=== PATIENT | female | born 1995 | race Caucasian/White ===

== ENCOUNTER 2018-02-19 21:32 | Emergency (ER) | payer SELFPAY ==
[~2018-02-19] VITALS: Ht 154.9 cm; Wt 81.6 kg
--- OUTSIDE RECORDS SUMMARY | 2018-02-19 21:38 | XMS REPORT ---
Author Author PARAG FLYNN Organization [facility] Address [address] [place] [address] Care Team Providers Care Civil Preparedness Coordinator Name Role Phone PARAG FLYNN Unavailable PROBLEMS Type Condition ICD9-CM Code [id number] Code Onset Dates Condition Status SNOMED Code Problem Hyperinsulinemia E16.1 Active 65432696 Problem Family history of diabetes mellitus Z83.3 Active 849002024 Problem Acquired hypothyroidism E03.9 Active 277080285 Problem Encounter to establish care Z76.89 Active 888689737 Problem Seasonal allergic rhinitis due to pollen J30.1 Active 97373554 Problem Obesity (BMI 30.0-34.9) E66.9 Active 729023240984346 Problem Amenorrhea N91.2 Active 52800178 ALLERGIES No Information SOCIAL HISTORY Never Assessed PLAN OF CARE VITAL SIGNS MEDICATIONS Medication Instructions Dosage Frequency Start Date End Date Duration Status Metformin HCl 850 MG Orally Once a day with evening meal 1 tablet with a meal Nov, 30 day(s) Active Levothyroxine Sodium 100 MCG Orally Once a day 1 tablet on an empty stomach in the morning 24h Active Spironolactone 50 mg Orally Once a day in the morning 1 tablet Nov, Active RESULTS No Results PROCEDURES No Known procedures IMMUNIZATIONS No Known Immunizations MEDICAL (GENERAL) HISTORY Type Description Date Medical History Hypothyroidism Surgical History cholecystectomy 08/2016 Surgical History Left eye surgery as Surgical History tonsillectomy Hospitalization History Surgery(s) only
--- OUTSIDE RECORDS SUMMARY | 2018-02-19 21:38 | XMS REPORT ---
Author Author PARAG FLYNN Organization [facility] Address [address] [place] [address] Care Team Providers Care Data Sciences Director Name Role Phone PARAG FLYNN Unavailable PROBLEMS Type Condition ICD9-CM Code [id number] Code Onset Dates Condition Status SNOMED Code Problem Hyperinsulinemia E16.1 Active 49501198 Problem Family history of diabetes mellitus Z83.3 Active 383293758 Problem Acquired hypothyroidism E03.9 Active 225275441 Problem Encounter to establish care Z76.89 Active 145957264 Problem Seasonal allergic rhinitis due to pollen J30.1 Active 44990369 Problem Obesity (BMI 30.0-34.9) E66.9 Active 258111236085681 Problem Amenorrhea N91.2 Active 40300405 ALLERGIES No Known Allergies SOCIAL HISTORY Never Assessed PLAN OF CARE VITAL SIGNS MEDICATIONS Medication Instructions Dosage Frequency Start Date End Date Duration Status Levothyroxine Sodium 100 MCG Orally Once a day 1 tablet on an empty stomach in the morning 24h Active Cetirizine HCl 10 mg Orally Once a day 1 tablet 24h Sep, Dec, 90 days Active RESULTS No Results PROCEDURES No Known procedures IMMUNIZATIONS No Known Immunizations MEDICAL (GENERAL) HISTORY Type Description Date Medical History Hypothyroidism Surgical History cholecystectomy 08/2016 Surgical History Left eye surgery as infant Surgical History tonsillectomy Hospitalization History Surgery(s) only
--- OUTSIDE RECORDS SUMMARY | 2018-02-19 21:39 | XMS REPORT ---
Author Author PARAG FLYNN Organization [facility] Address [address] [place] [address] Care Team Providers Care Pet House Sitter Name Role Phone PARAG FLYNN Unavailable PROBLEMS Type Condition ICD9-CM Code [id number] Code Onset Dates Condition Status SNOMED Code Problem Hyperinsulinemia E16.1 Active 46476976 Problem Family history of diabetes mellitus Z83.3 Active 833092134 Problem Acquired hypothyroidism E03.9 Active 179019890 Problem Encounter to establish care Z76.89 Active 692394202 Problem Seasonal allergic rhinitis due to pollen J30.1 Active 97899570 Problem Obesity (BMI 30.0-34.9) E66.9 Active 878831642281922 Problem Amenorrhea N91.2 Active 87853829 ALLERGIES Substance Reaction Event Type Date Status N.K.D.A. Unknown Non Drug Allergy Sep, Unknown SOCIAL HISTORY No smoking Hx information available PLAN OF CARE Activity Details Follow Up 4 Weeks Reason:needs to est care VITAL SIGNS Height 61.5 in 2016-10-10 Weight 177.6 lbs 2016-10-10 Temperature 98.8 degrees Fahrenheit 2016-10-10 Heart Rate 76 bpm 2016-10-10 Respiratory Rate 16 2016-10-10 BMI 33.01 kg/m2 2016-10-10 Blood pressure systolic 120 mmHg 2016-10-10 Blood pressure diastolic 78 mmHg 2016-10-10 MEDICATIONS Medication Instructions Dosage Frequency Start Date End Date Duration Status Cetirizine HCl 10 mg Orally Once a day 1 tablet 24h Sep, Dec, 90 days Active Levothyroxine Sodium 100 MCG Orally Once a day 1 tablet on an empty stomach in the morning 24h Active RESULTS No Results PROCEDURES Procedure Date Ordered Related Diagnosis Body Site Office Visit, Est Pt., Level 3 Oct 10, 2016 IMMUNIZATIONS No Known Immunizations
--- OUTSIDE RECORDS SUMMARY | 2018-02-19 21:39 | XMS REPORT ---
Author Author PARAG FLYNN Organization [facility] Address [address] [place] [address] Care Team Providers Care Geometry Professor Name Role Phone PARAG FLYNN Unavailable PROBLEMS Type Condition ICD9-CM Code [id number]-RV Code Onset Dates Condition Status SNOMED Code Problem Hyperinsulinemia E16.1 Active 48239344 Problem Family history of diabetes mellitus Z83.3 Active 909940629 Problem Acquired hypothyroidism E03.9 Active 335590066 Problem Encounter to establish care Z76.89 Active 894865083 Problem Seasonal allergic rhinitis due to pollen J30.1 Active 16821144 Problem Obesity (BMI 30.0-34.9) E66.9 Active 871097230325457 Problem Amenorrhea N91.2 Active 28625603 ALLERGIES No Known Allergies SOCIAL HISTORY Never Assessed PLAN OF CARE Activity Details Follow Up 3 Months, prn Reason:chm VITAL SIGNS Height 61.5 in 2016-12-01 Weight 172.7 lbs 2016-12-01 Temperature 98.6 degrees Fahrenheit 2016-12-01 Heart Rate 77 bpm 2016-12-01 Respiratory Rate 18 2016-12-01 BMI 32.10 kg/m2 2016-12-01 Blood pressure systolic 122 mmHg 2016-12-01 Blood pressure diastolic 81 mmHg 2016-12-01 MEDICATIONS Medication Instructions Dosage Frequency Start Date End Date Duration Status Metformin HCl 850 MG Orally Once a day with evening meal 1 tablet with a meal Nov, 30 day(s) Active Levothyroxine Sodium 100 MCG Orally Once a day 1 tablet on an empty stomach in the morning 24h Active Fluticasone Propionate 50 MCG/ACT Nasally Once a day 1 spray in each nostril 24h Oct, 30 day(s) Active Cetirizine HCl 10 mg Orally Once a day 1 tablet 24h Sep, Dec, 90 days Active Spironolactone 50 mg Orally Once a day in the morning 1 tablet Nov, Active RESULTS No Results PROCEDURES No Known procedures IMMUNIZATIONS No Known Immunizations MEDICAL (GENERAL) HISTORY Type Description Date Medical History Hypothyroidism Surgical History cholecystectomy 08/2016 Surgical History Left eye surgery as Surgical History tonsillectomy Hospitalization History Surgery(s) only
--- OUTSIDE RECORDS SUMMARY | 2018-02-19 21:39 | XMS REPORT ---
Author Author PARAG FLYNN Organization [facility] Address [address] [place] [address] Care Team Providers Care Marine Engineering Consultant Name Role Phone PARAG FLYNN Unavailable PROBLEMS Type Condition ICD9-CM Code [id number] Code Onset Dates Condition Status SNOMED Code Problem Hyperinsulinemia E16.1 Active 26887880 Problem Family history of diabetes mellitus Z83.3 Active 050244697 Problem Acquired hypothyroidism E03.9 Active 625684059 Problem Encounter to establish care Z76.89 Active 703799156 Problem Seasonal allergic rhinitis due to pollen J30.1 Active 59478979 Problem Obesity (BMI 30.0-34.9) E66.9 Active 053258744360051 Problem Amenorrhea N91.2 Active 74328126 ALLERGIES No Information SOCIAL HISTORY Never Assessed PLAN OF CARE VITAL SIGNS MEDICATIONS No Known Medications RESULTS Name Result Date Reference Range Ultrasound : Pelvic, COMPLETE (REFLEX [id number]-02914) 2016-11-24 PROCEDURES No Known procedures IMMUNIZATIONS No Known Immunizations MEDICAL (GENERAL) HISTORY Type Description Date Medical History Hypothyroidism Surgical History cholecystectomy 08/2016 Surgical History Left eye surgery as Surgical History tonsillectomy Hospitalization History Surgery(s) only
--- OUTSIDE RECORDS SUMMARY | 2018-02-19 21:39 | XMS REPORT ---
Author Author PARAG FLYNN Organization [facility] Address [address] [place] [address] Care Team Providers Care Asset Protection Manager Name Role Phone PARAG FLYNN Unavailable PROBLEMS Type Condition ICD9-CM Code [id number]-[id number] Code Onset Dates Condition Status SNOMED Code Problem Hyperinsulinemia E16.1 Active 58684329 Problem Family history of diabetes mellitus Z83.3 Active 459781539 Problem Acquired hypothyroidism E03.9 Active 123651153 Problem Encounter to establish care Z76.89 Active 825885403 Problem Seasonal allergic rhinitis due to pollen J30.1 Active 37063467 Problem Obesity (BMI 30.0-34.9) E66.9 Active 570928840963245 Problem Amenorrhea N91.2 Active 24188115 ALLERGIES No Known Allergies SOCIAL HISTORY Never Assessed PLAN OF CARE Activity Details Follow Up 4 Weeks Reason:lab f/u VITAL SIGNS Height 61.5 in 2016-11-03 Weight 175.8 lbs 2016-11-03 Temperature 98.2 degrees Fahrenheit 2016-11-03 Heart Rate 77 bpm 2016-11-03 Respiratory Rate 18 2016-11-03 BMI 32.68 kg/m2 2016-11-03 Blood pressure systolic 118 mmHg 2016-11-03 Blood pressure diastolic 77 mmHg 2016-11-03 MEDICATIONS Medication Instructions Dosage Frequency Start Date [...] each nostril 24h Oct, 30 day(s) Active RESULTS Name Result Date Reference Range DHEA-S 2016-11-03 DHEA-Sulfate 102.6 110.0-433.2 PROLACTIN 2016-11-03 Prolactin 22.2 4.8-23.3 ESTRADIOL 2016-11-03 Estradiol 105.1 TESTOSTERONE, TOTAL (WOMEN, CHILDREN, HYPOGONADAL MALES) 2016-11-03 Testosterone, Total, LC/MS 40 Comment: THYROID ANALYZER 2016-11-03 TSH 3.600 0.450-4.500 A1C 2016-11-03 Hemoglobin A1c 5.0 4.8-5.6 FSH, SERUM 2016-11-03 FSH 2.6 INSULIN LEVEL 2016-11-03 Insulin 26.8 2.6-24.9 CBC 2016-11-03 WBC 8.3 3.4-10.8 RBC 4.82 3.77-5.28 Hemoglobin 14.1 11.1-15.9 Hematocrit 42.5 34.0-46.6 MCV 88 79-97 MCH 29.3 26.6-33.0 MCHC 33.2 31.5-35.7 RDW 13.1 12.3-15.4 Platelets 320 150-379 Neutrophils 59 Lymphs 35 Monocytes 5 Eos 1 Basos 0 Neutrophils (Absolute) 4.9 1.4-7.0 Lymphs (Absolute) 2.9 0.7-3.1 Monocytes(Absolute) 0.4 0.1-0.9 Eos (Absolute) 0.1 0.0-0.4 Baso (Absolute) 0.0 0.0-0.2 Immature Granulocytes 0 Immature Grans (Abs) 0.0 0.0-0.1 LIPID PANEL 2016-11-03 Cholesterol, Total 134 100-169 Triglycerides 73 0-89 HDL Cholesterol 35 >39 VLDL Cholesterol Drew 15 5-40 LDL Cholesterol Calc 84 0-109 CMP 2016-11-03 Glucose, Serum 86 65-99 BUN 16 6-20 Creatinine, Serum 0.96 0.57-1.00 eGFR If NonAfricn Am 86 >59 eGFR If Africn Am 99 >59 BUN/Creatinine Ratio 17 8-20 Sodium, Serum 138 134-144 Potassium, Serum 4.6 3.5-5.2 Chloride, Serum 102 96-106 Carbon Dioxide, Total 21 18-29 Calcium, Serum 9.4 8.7-10.2 Protein, Total, Serum 7.1 6.0-8.5 Albumin, Serum 4.3 3.5-5.5 Globulin, Total 2.8 1.5-4.5 A/G Ratio 1.5 1.1-2.5 Bilirubin, Total 0.3 0.0-1.2 Alkaline Phosphatase, S 71 39-117 AST (SGOT) 11 0-40 ALT (SGPT) 15 0-32 PROCEDURES Procedure Date Ordered Result Body Site ASSAY OF ESTRADIOL Nov 03, 2016 DEHYDROEPIANDROSTERONE Nov 03, 2016 GLYCATED HEMOGLOBIN TEST Nov 03, 2016 VENIPUNCT, ROUTINE* Nov 03, 2016 LIPID PANEL Nov 03, 2016 ASSAY OF PROLACTIN Nov 03, 2016 GONADOTROPIN (FSH) Nov 03, 2016 ASSAY OF TOTAL TESTOSTERONE Nov 03, 2016 COMPLETE CBC W/AUTO DIFF WBC Nov 03, 2016 ASSAY THYROID STIM HORMONE Nov 03, 2016 ASSAY OF INSULIN Nov 03, 2016 COMPREHEN METABOLIC PANEL Nov 03, 2016 IMMUNIZATIONS No Known Immunizations MEDICAL (GENERAL) HISTORY Type Description Date Medical History Hypothyroidism Surgical History cholecystectomy 08/2016 Surgical History Left eye surgery as infant Surgical History tonsillectomy Hospitalization History Surgery(s) only
--- OUTSIDE RECORDS SUMMARY | 2018-02-19 21:39 | XMS REPORT ---
Author Author FLYNNPARAG Milton Organization [facility] Address [address] [place] [address] Care Team Providers Care Wage And Salary Specialist Name Role Phone PARAG FLYNN Unavailable PROBLEMS Type Condition ICD9-CM Code [id number] Code Onset Dates Condition Status SNOMED Code Problem Seasonal allergic rhinitis due to pollen J30.1 Active 33184968 Problem Hyperinsulinemia E16.1 Active 85181284 Problem GERD without esophagitis K21.9 Active 972293709 Problem Encounter to establish care Z76.89 Active 175927380 Problem Obesity (BMI 30.0-34.9) E66.9 Active 276357076651749 Problem Amenorrhea N91.2 Active 29609506 Problem Family history of diabetes mellitus Z83.3 Active 227261643 Problem Acquired hypothyroidism E03.9 Active 607193218 ALLERGIES No Known Allergies ENCOUNTERS Encounter Location Date Diagnosis [place] [address] [phone] January, [place] [address] [address] Nov, [place] [address] [address] Nov, GERD without esophagitis K21.9 [place] [address] [address] Nov, GERD without esophagitis K21.9 ; Pleuritic chest pain R07.81 and Chest pain, unspecified type R07.9 [place] [address] [address] Mar, Otalgia of both ears H92.03 and Sensation of fullness in both ears H93.8X3 [place] [address] [place] [address] Nov, 2016 Amenorrhea N91.2 ; Hyperinsulinemia E16.1 and Obesity (BMI 30.0-34.9) E66.9 [place] [id number] [place] [phone] Nov, 2016 Amenorrhea N91.2 [place] [address] [address] [place] [id number] [place] [phone] Oct, Amenorrhea N91.2 [place] [address] [address] [place] [id number] [place] [phone] 17 Oct, 2016 Encounter to establish care Z76.89 ; Family history of diabetes mellitus Z83.3 ; Acquired hypothyroidism E03.9 ; Amenorrhea N91.2 ; Seasonal allergic rhinitis due to pollen J30.1 and Obesity (BMI 30.0-34.9) E66.9 [place] [address] [address] [place] [id number] [place] [phone] Oct, [place] [address] [address] [place] [id number] [place] [phone] Sep, Seasonal allergic rhinitis due to pollen J30.1 IMMUNIZATIONS No Known Immunizations SOCIAL HISTORY Never Assessed REASON FOR VISIT Ear pain- Bilateral ear pain since October intermittently. --tcuppettRN PLAN OF CARE Activity Details Follow Up prn Reason: VITAL SIGNS Height 61.5 in 2017-03-19 Weight 182.2 lbs 2017-03-19 Temperature 98.6 degrees Fahrenheit 2017-03-19 Heart Rate 90 bpm 2017-03-19 Respiratory Rate 20 2017-03-19 BMI 33.87 kg/m2 2017-03-19 Blood pressure systolic 118 mmHg 2017-03-19 Blood pressure diastolic 66 mmHg 2017-03-19 MEDICATIONS Medication Instructions Dosage Frequency Start Date End Date Duration Status Cetirizine HCl 10 mg Orally Once a day 1 tablet 24h Mar, Jun, 90 days Active Levothyroxine Sodium 100 MCG Orally Once a day 1 tablet on an empty stomach in the morning 24h Active RESULTS No Results PROCEDURES No Known procedures INSTRUCTIONS MEDICATIONS ADMINISTERED No Known Medications MEDICAL (GENERAL) HISTORY Type Description Date Medical History Hypothyroidism Surgical History cholecystectomy 08/2016 Surgical History Left eye surgery as Surgical History tonsillectomy Hospitalization History Surgery(s) only
[2018-02-19] MEDS ORDERED: ONDANSETRON 4 MG (ZOFRAN) ORAL DISSOLVE TAB PO ONE (22:15)
[2018-02-19] MEDS ORDERED: FAMOTIDINE 20 MG (PEPCID) TABLET PO STA (22:16)
--- NOTE | 2018-02-19 22:16 | ED Abdominal Pain ---
General Chief Complaint: Abdominal/GI Problems Stated Complaint: VOMITING Nursing Triage Note: pt presents to er with complaint of n/v and rib pain x 4days. states she went to [facility] er today and was given phenergan, xrays, and sent home. Sepsis Screen: No Definite Risk Source of Information: Patient, Family, Other Exam Limitations: No Limitations History of Present Illness Date Seen by Provider: Feb 19, 2018 Time Seen by Provider: 22:03 Initial Comments Patient presents to the ER by private conveyance with a chief complaint that for the past 3 or 4 days she's had nausea vomiting not able to keep anything down and midepigastric abdominal pain. She says the pain preceded the nausea vomiting. She does not history of GERD, pancreatitis, surgeries on her abdomen. She says she is not taking anything for control but does not expressing. Does not know her last period. No fevers or chills or sweats. She tried taking some Tylenol for her abdominal pain but couldn't keep it down. No one else around has been sick. She is not endorsing any unsafe water sources nor traveling outside the [facility]. She was seen earlier today at [facility] and apparently was given an x-ray and some Phenergan and sent home. She takes Synthroid only no drug allergies. Allergies and Home Medications Allergies Coded Allergies: No Known Drug Allergies (Unverified , 02/19/18) Home Medications Ondansetron 4 Mg Tab.rapdis, 4 MG PO Q6H PRN for NAUSEA/VOMITING Prescribed by: ROBERT RUFF on 02/20/18 0000 Patient Home Medication List Home Medication List Reviewed: Yes Review of Systems Constitutional: No chills, No diaphoresis EENTM: No Blurred Vision, No Double Vision Respiratory: Denies Cough, Denies Shortness of Air Cardiovascular: Denies Chest Pain, Denies Lightheadedness Gastrointestinal: Denies Constipated, Denies Diarrhea; Nausea, Poor Fluid Intake, Vomiting Genitourinary: Denies Burning, Denies Discharge, Denies Drainage Musculoskeletal: No back pain, No joint pain Skin: No pruritus, No rash Psychiatric/Neurological: Denies Headache, Denies Numbness, Denies Paresthesia Past Fzspwto-Xsswzh-Zsvvcc Hx Patient Social History Alcohol Use: Denies Use Recreational Drug Use: No Smoking Status: Never a Smoker Recent Foreign Travel: No Contact w/Someone Who Travel: No Recent Infectious Disease Expo: No Recent Hopitalizations: No Immunizations Up To Date Tetanus Booster (TDap): Unknown PED Vaccines UTD: Yes Seasonal Allergies Seasonal Allergies: No Past Medical History Surgeries: Yes Gallbladder Respiratory: No Cardiac: No Neurological: No Genitourinary: No Gastrointestinal: No Musculoskeletal: No Endocrine: Yes Hypothyroidsim HEENT: No Cancer: No Psychosocial: No Integumentary: No Blood Disorders: No Physical Exam Vital Signs Vital Signs - First Documented 02/19/18 21:45 Temp 97.6 Pulse 74 Resp 20 B/P (MAP) 137/99 (112) Pulse Ox 96 O2 Delivery Room Air Capillary Refill : Less Than 3 Seconds General Appearance: WD/WN, no apparent distress HEENT: PERRL/EOMI, normal ENT inspection, TMs normal, pharynx normal ( oropharynx is moist) Neck: non-tender, full range of motion, supple, normal inspection Respiratory: chest non-tender, lungs clear, normal breath sounds, no respiratory distress, no accessory muscle use Cardiovascular: normal peripheral pulses, regular rate, rhythm, no edema Peripheral Pulses: 2+ Radial Pulses (R), 2+ Radial Pulses (L) Gastrointestinal: normal bowel sounds, soft, no organomegaly, tenderness ( midepigastric region. Left upper quadrant.), other (negative for Rovsing, mesenteric signs, McBurney's point tenderness or rebound tenderness. No Degroot sign.) Extremities: no pedal edema, no calf tenderness, normal capillary refill Neurologic/Psychiatric: alert, normal mood/affect, oriented x 3 Skin: normal color, warm/dry Progress/Results/Core Measures Results/Orders Lab Results Laboratory Tests Test 02/19/18 22:28 02/19/18 23:08 Range/Units White Blood Count 7.3 4.3-11.0 10^3/uL Red Blood Count 4.58 4.35-5.85 10^6/uL Hemoglobin 13.4 11.5-16.0 G/DL Hematocrit 39 35-52 % Mean Corpuscular Volume 84 80-99 FL Mean Corpuscular Hemoglobin 29 25-34 PG Mean Corpuscular Hemoglobin Concent 35 32-36 G/DL Red Cell Distribution Width 12.4 10.0-14.5 % Platelet Count 275 130-400 10^3/uL Mean Platelet Volume 9.3 7.4-10.4 FL Neutrophils (%) (Auto) 43 42-75 % Lymphocytes (%) (Auto) 49 H 12-44 % Monocytes (%) (Auto) 7 0-12 % Eosinophils (%) (Auto) 1 0-10 % Basophils (%) (Auto) 0 0-10 % Neutrophils # (Auto) 3.1 1.8-7.8 X 10^3 Lymphocytes # (Auto) 3.6 1.0-4.0 X 10^3 Monocytes # (Auto) 0.2 0.0-1.0 X 10^3 Eosinophils # (Auto) 0.1 0.0-0.3 10^3/uL Basophils # (Auto) 0.0 0.0-0.1 10^3/uL Sodium Level 143 135-145 MMOL/L Potassium Level 4.1 3.6-5.0 MMOL/L Chloride Level 111 H 98-107 MMOL/L Carbon Dioxide Level 22 21-32 MMOL/L Anion Gap 10 5-14 MMOL/L Blood Urea Nitrogen 15 7-18 MG/DL Creatinine 1.12 0.60-1.30 MG/DL Estimat Glomerular Filtration Rate > 60 BUN/Creatinine Ratio 13 Glucose Level 98 70-105 MG/DL Calcium Level 9.6 8.5-10.1 MG/DL Total Bilirubin 0.4 0.1-1.0 MG/DL Aspartate Amino Transf (AST/SGOT) 14 5-34 U/L Alanine Aminotransferase (ALT/SGPT) 12 0-55 U/L Alkaline Phosphatase 65 40-136 U/L Total Protein 7.2 6.4-8.2 GM/DL Albumin 4.3 3.2-4.5 GM/DL Lipase 34 8-78 U/L Urine Color YELLOW Urine Clarity SLIGHTLY CLOUDY Urine pH 7 5-9 Urine Specific [place] 1.015 L 1.016-1.022 Urine Protein 1+ H NEGATIVE Urine Glucose (UA) NEGATIVE NEGATIVE Urine Ketones NEGATIVE NEGATIVE Urine Nitrite NEGATIVE NEGATIVE Urine Bilirubin NEGATIVE NEGATIVE Urine Urobilinogen NORMAL NORMAL MG/DL Urine Leukocyte Esterase NEGATIVE NEGATIVE Urine RBC (Auto) NEGATIVE NEGATIVE Urine RBC NONE /HPF Urine WBC 2-5 /HPF Urine Squamous Epithelial Cells 10-25 H /HPF Urine Crystals PRESENT H /LPF Urine Amorphous Sediment LARGE SLIM PHOSPHATE H /LPF Urine Bacteria LARGE H /HPF Urine Casts NONE /LPF Urine Mucus NEGATIVE /LPF Urine Culture Indicated NO Urine Test NEGATIVE NEGATIVE My Orders Orders - ROBERT RUFF Ondansetron Oral Dissolve Tab (Zofran (02/19/18 22:15) Cbc With Automated Diff (02/19/18 22:09) Comprehensive Metabolic Panel (02/19/18 22:09) Hcg,Qualitative Urine (02/19/18 22:09) Lipase (02/19/18 22:09) Ua Culture If Indicated (02/19/18 22:09) Lidocaine 2% Viscous 15 Ml (Xylocaine Vi (02/19/18 22:30) Famotidine Tablet (Pepcid Tablet) (02/19/18 22:16) Antacid Suspension (Mylanta Suspension (02/19/18 22:30) Ondansetron Injection (Zofran Injectio (02/19/18 23:15) Drug Screen Stat (Urine) (02/19/18 23:49) Medications Given in ED Current Medications Medications Dose Ordered Sig/Eduardo Route Start Time Stop Time Status Last Admin Dose Admin Al Hydrox/Mg Hydrox/Simethicone 30 ml ONCE ONCE PO 02/19/18 22:30 02/19/18 22:31 DC 02/19/18 22:38 30 ML Lidocaine HCl 15 ml ONCE ONCE PO 02/19/18 22:30 02/19/18 22:31 DC 02/19/18 22:38 15 ML Ondansetron HCl 4 mg ONCE ONCE IM 02/19/18 23:15 02/19/18 23:16 DC 02/19/18 23:11 4 MG Ondansetron HCl 4 mg ONCE ONCE PO 02/19/18 22:15 02/19/18 22:16 DC 02/19/18 22:21 4 MG Vital Signs/I&O 02/19/18 21:45 Temp 97.6 Pulse 74 Resp 20 B/P (MAP) 137/99 (112) Pulse Ox 96 O2 Delivery Room Air Blood Pressure Mean: 112 Progress Progress Note #1: Time: 22:13 Progress Note Lab draw, with lipase. Urinalysis with hCG qualitative. Her vitals are aseptic. No fluids are necessary. We'll give her some Zofran ODT and if everything looks benign let her go home with some more Zofran. Most likely viral gastroenteritis since she has sought help twice in the same day we'll look a little harder with some lab. Pretty benign exam. Progress Note #2: Time: 23:07 Progress Note Unfortunately the patient took the Zofran tablet and a GI cocktail exactly the same time and threw them all. We'll give her some IM Zofran and then reevaluate. So far her pancreas looks okay it is no elevation of her white count or markers of inflammation. Gastroenteritis still high on the differential. Waiting for her to produce some urine. Departure Impression Primary Impression: Viral gastroenteritis Disposition: HOME, SELF-CARE Condition: Improved Departure-Patient Inst. Decision time for Depature: 00:06 Referrals: [facility] (PCP) Primary Care Physician Patient Instructions: [id number] Add. Discharge Instructions: Take Zofran and place it on the tongue every 6 hours as needed for nausea or vomiting. Get plenty of fluids in. Sports drinks mixed with water once a day or good. Wash your hands to try and avoid spreading the virus. All discharge instructions reviewed with patient and/or family. Voiced understanding. Copy Copies To 1: LIZ SHIELDS TITUS J Feb 19, 2018 22:16
[2018-02-19] MEDS ORDERED: LIDOCAINE 2% VISCOUS 15 ML UDC PO ONE (22:30)
[2018-02-19] MEDS ORDERED: ANTACID SUSP 30 ML UDC (MYLANTA) PO ONE (22:30)
[2018-02-19 22:35] LABS: BASOPHILS % (AUTO) 0 % (0-10); EOSINOPHILS # (AUTO) 0.1 10^3/uL (0.0-0.3); EOSINOPHILS % (AUTO) 1 % (0-10); LYMPHOCYTES % (AUTO) 49 % (12-44); MEAN CORPUSCULAR HGB CONC 35 G/DL (32-36); MEAN CORPUSCULAR VOLUME 84 FL (80-99); MEAN PLATELET VOLUME 9.3 FL (7.4-10.4); MONOCYTES % (AUTO) 7 % (0-12); NEUTROPHILS % (AUTO) 43 % (42-75); RED CELL DISTRIBUTION WIDTH 12.4 % (10.0-14.5)
[2018-02-19 22:38] LABS: HEMATOCRIT 39 % (35-52); HEMOGLOBIN 13.4 G/DL (11.5-16.0); LYMPHOCYTES # (AUTO) 3.6 X 10^3 (1.0-4.0); MEAN CORPUSCULAR HEMOGLOBIN 29 PG (25-34); MONOCYTES # (AUTO) 0.2 X 10^3 (0.0-1.0); NEUTROPHILS # (AUTO) 3.1 X 10^3 (1.8-7.8); PLATELET COUNT 275 10^3/uL (130-400); RED BLOOD COUNT 4.58 10^6/uL (4.35-5.85); WHITE BLOOD COUNT 7.3 10^3/uL (4.3-11.0)
[2018-02-19 22:51] LABS: ALANINE AMINOTRANSFERASE 12 U/L (0-55); ALBUMIN 4.3 GM/DL (3.2-4.5); ALKALINE PHOSPHATASE 65 U/L (40-136); BILIRUBIN,TOTAL 0.4 MG/DL (0.1-1.0); BUN/CREATININE RATIO 13; CALCIUM 9.6 MG/DL (8.5-10.1); CARBON DIOXIDE 22 MMOL/L (21-32); CHLORIDE 111 MMOL/L (98-107); CREATININE SERUM 1.12 MG/DL (0.60-1.30); GFR ESTIMATED > 60; GLUCOSE 98 MG/DL (70-105); LIPASE 34 U/L (8-78); POTASSIUM 4.1 MMOL/L (3.6-5.0); SODIUM 143 MMOL/L (135-145); TOTAL PROTEIN 7.2 GM/DL (6.4-8.2)
[2018-02-19] MEDS ORDERED: ONDANSETRON 4 MG/2 ML (SDV) Z0FRAN IM ONE (23:15)
[2018-02-19 23:27] LABS: BILIRUBIN,URINE NEGATIVE (NEGATIVE); CLARITY,URINE SLIGHTLY CLOUDY; COLOR,URINE YELLOW; GLUCOSE, URINE (UA) NEGATIVE (NEGATIVE); KETONES,URINE NEGATIVE (NEGATIVE); LEUKOCYTE ESTERASE ,URINE NEGATIVE (NEGATIVE); NITRITE,URINE NEGATIVE (NEGATIVE); PH,URINE 7 (5-9); PROTEIN,URINE 1+ (NEGATIVE); UROBILINOGEN,URINE NORMAL (NORMAL)
[2018-02-19 23:31] LABS: AMORPHOUS SEDIMENT,UR LARGE AMOR PHOSPHATE /LPF; BACTERIA,URINE LARGE /HPF
[2018-02-20] MEDS ORDERED: ONDA4TAB11 PO
[2018-02-20 00:08] LABS: AMPHETAMINE SCREEN, URINE NEGATIVE (NEGATIVE); BARBITURATE SCREEN URINE NEGATIVE (NEGATIVE); BENZODIAZEPINES SCREEN URINE NEGATIVE (NEGATIVE); CANNABINOID SCREEN, URINE NEGATIVE (NEGATIVE); COCAINE SCREEN URINE NEGATIVE (NEGATIVE); METHADONE STAT NEGATIVE (NEGATIVE); METHAMPHETAMINE SCREEN URINE S NEGATIVE (NEGATIVE); OPIATE SCREEN URINE NEGATIVE (NEGATIVE); OXYCODONE STAT NEGATIVE (NEGATIVE); PROPOXYPHENE STAT NEGATIVE (NEGATIVE); TRICYCLIC ANTIDEPRESSANTS SCRE NEGATIVE (NEGATIVE)
[2018-02-20] MEDS ORDERED: RX-ONDANSETRON 4 MG ODT (ZOFRAN) PPK #4 PO STA (00:08)
[2018-02-20 00:15] VITALS: BP 137/99
== END 2018-02-20 00:15 | disposition home or self-care (01) ==
LOC: EDUNIT# 21:32 → ER 21:35
DX: A08.4 Viral intestinal infection, unspecified (principal); E03.9 Hypothyroidism, unspecified; Z98.890 Other specified postprocedural states
CPT/HCPCS: 36415; 80053; 80306; 81000; 83690; 84703; 85025; 96372; 99283

== ENCOUNTER 2018-11-28 10:52 | Emergency (ER) | payer SELFPAY ==
[~2018-11-28] VITALS: Ht 154.9 cm; Wt 77.1 kg
[~2018-11-28 10:52] MED LIST: ONDA4TAB11 PO
--- NOTE | 2018-11-28 10:59 | ED Cardiac General ---
History of Present Illness General Stated Complaint: CHEST PAIN,DIZZY 11/27/18 Source: patient Exam Limitations: no limitations History of Present Illness Date Seen by Provider: Nov 28, 2018 Time Seen by Provider: 11:00 23 y/o F with history of hypothyroidism presents with sharp, non-radiating, central substernal chest pain 04/26 that has been constant since around 2099 yesterday. Pain started while at rest watching TV. Nothing improves symptoms, has occasional dry heaves that worsen symptoms. Since around 2099 has had a dry /non-productive cough. Denies sick contacts. No recent travel, calf pain, trauma, not on OCP's or hormone treatments. Allergies and Home Medications Allergies Coded Allergies: egg (Unverified Allergy, Severe, throat swelling, 11/28/18) Patient Home Medication List Home Medication List Reviewed: Yes Review of Systems Review of Systems Constitutional: No chills; dizziness (when standing, feels like spinning), fever (subjective), malaise EENTM: No Blurred Vision, No Double Vision Respiratory: Cough; Denies Orthopnea, Denies Shortness of Air, Denies SOA With Exertion, Denies SOA at Rest, Denies Wheezing Cardiovascular: See HPI, Chest Pain; Denies Edema, Denies Irregular Heart Rate ; Lightheadedness; Denies Palpitations, Denies Syncope Gastrointestinal: Denies Abdominal Pain, Denies Diarrhea; Nausea (intermittent) ; Denies Vomiting Genitourinary: Denies Burning, Denies Drainage, Denies Frequency, Denies Flank Pain Musculoskeletal: No back pain, No joint pain, No muscle pain Skin: No lesions, No rash Psychiatric/Neurological: Denies Anxiety, Denies Headache, Denies Paresthesia Past Loljlsw-Vierjy-Gzpjkl Hx Past Med/Social Hx: Reviewed Nursing Past Med/Soc Hx Patient Social History Recent Foreign Travel: No Contact w/Someone Who Travel: No Recent Hopitalizations: No Immunizations Up To Date Tetanus Booster (TDap): Unknown PED Vaccines UTD: Yes Seasonal Allergies Seasonal Allergies: No Past Medical History Surgeries: Yes Gallbladder Respiratory: No Cardiac: No Neurological: No Genitourinary: No Gastrointestinal: No Musculoskeletal: No Endocrine: Yes Hypothyroidsim HEENT: No Cancer: No Psychosocial: No Integumentary: No Blood Disorders: No Physical Exam Vital Signs Vital Signs - First Documented 11/28/18 10:57 Temp 98.6 Pulse 128 Resp 16 B/P (MAP) 118/73 (88) Pulse Ox 98 O2 Delivery Room Air Capillary Refill : Height, Weight, BMI Height: 5'1.00" Weight: 180lbs. oz. 81.911202nw; BMI Method:Stated General Appearance: No Apparent Distress, WD/WN HEENT: PERRL/EOMI, Normal ENT Inspection Neck: Full Range of Motion, Normal Inspection, Non Tender Respiratory: Chest Non Tender, Lungs Clear, Normal Breath Sounds, No Accessory Muscle Use, No Respiratory Distress Cardiovascular: No Edema, No Gallop, No JVD, No Murmur, Normal Peripheral Pulses, Tachycardia Gastrointestinal: Normal Bowel Sounds, No Organomegaly, No Pulsatile Mass, Non Tender Extremity: Normal Capillary Refill, Normal Inspection, Normal Range of Motion, Non Tender, No Calf Tenderness, No Pedal Edema Neurologic/Psychiatric: Alert, Oriented x3, No Motor/Sensory Deficits Skin: Normal Color, Warm/Dry Progress/Results/Core Measures Results/Orders Lab Results Laboratory Tests Test 11/28/18 11:25 Range/Units White Blood Count 6.2 4.3-11.0 10^3/uL Red Blood Count 4.59 4.35-5.85 10^6/uL Hemoglobin 13.6 11.5-16.0 G/DL Hematocrit 40 35-52 % Mean Corpuscular Volume 88 80-99 FL Mean Corpuscular Hemoglobin 30 25-34 PG Mean Corpuscular Hemoglobin Concent 34 32-36 G/DL Red Cell Distribution Width 12.7 10.0-14.5 % Platelet Count 233 130-400 10^3/uL Mean Platelet Volume 9.9 7.4-10.4 FL Neutrophils (%) (Auto) 78 H 42-75 % Lymphocytes (%) (Auto) 12 12-44 % Monocytes (%) (Auto) 9 0-12 % Eosinophils (%) (Auto) 1 0-10 % Basophils (%) (Auto) 0 0-10 % Neutrophils # (Auto) 4.8 1.8-7.8 X 10^3 Lymphocytes # (Auto) 0.7 L 1.0-4.0 X 10^3 Monocytes # (Auto) 0.6 0.0-1.0 X 10^3 Eosinophils # (Auto) 0.1 0.0-0.3 10^3/uL Basophils # (Auto) 0.0 0.0-0.1 10^3/uL Prothrombin Time 14.2 12.2-14.7 SEC INR Comment 1.1 0.8-1.4 Activated Partial Thromboplast Time 38 H 24-35 SEC D-Dimer 0.27 0.00-0.49 UG/ML Sodium Level 136 135-145 MMOL/L Potassium Level 4.0 3.6-5.0 MMOL/L Chloride Level 102 98-107 MMOL/L Carbon Dioxide Level 11 L 21-32 MMOL/L Anion Gap 23 H 5-14 MMOL/L Blood Urea Nitrogen 12 7-18 MG/DL Creatinine 0.95 0.60-1.30 MG/DL Estimat Glomerular Filtration Rate > 60 BUN/Creatinine Ratio 13 Glucose Level 112 H 70-105 MG/DL Calcium Level 8.8 8.5-10.1 MG/DL Corrected Calcium 8.7 8.5-10.1 MG/DL Magnesium Level 1.9 1.8-2.4 MG/DL Total Bilirubin 0.5 0.1-1.0 MG/DL Aspartate Amino Transf (AST/SGOT) 11 5-34 U/L Alanine Aminotransferase (ALT/SGPT) 8 0-55 U/L Alkaline Phosphatase 62 40-136 U/L Troponin T 6 <=10 NG/L Total Protein 6.9 6.4-8.2 GM/DL Albumin 4.1 3.2-4.5 GM/DL Serum Test, Qualitative NEGATIVE NEGATIVE My Orders Orders - GABRIELA SEALS MD Cbc With Automated Diff (11/28/18 11:07) Magnesium (11/28/18 11:07) Chest 1 View Ap/Pa Only (11/28/18 11:07) Ekg Tracing (11/28/18 11:07) Comprehensive Metabolic Panel (11/28/18 11:07) Protime With Inr (11/28/18 11:07) Partial Thromboplastin Time (11/28/18 11:07) O2 (11/28/18 11:07) Monitor-Rhythm Ecg Trace Only (11/28/18 11:07) Saline Lock/Iv-Start (11/28/18 11:07) Troponin T (11/28/18 11:07) Ns Iv 1000 Ml (Sodium Chloride 0.9%) (11/28/18 11:15) Ketorolac Injection (Toradol Injection) (11/28/18 11:15) Ondansetron Injection (Zofran Injectio (11/28/18 11:15) Fibrin Degradation Products (11/28/18 11:07) Hcg,Quantitative (11/28/18 11:20) Hcg,Qualitative Serum (11/28/18 11:20) Ua Culture If Indicated (11/28/18 11:20) Drug Screen Stat (Urine) (11/28/18 11:20) Medications Given in ED Current Medications Medications Dose Ordered Sig/Eduardo Route Start Time Stop Time Status Last Admin Dose Admin Ketorolac Tromethamine 30 mg ONCE ONCE IVP 11/28/18 11:15 11/28/18 11:16 DC 11/28/18 11:22 30 MG Ondansetron HCl 4 mg ONCE ONCE IVP 11/28/18 11:15 11/28/18 11:16 DC 11/28/18 11:21 4 MG Vital Signs/I&O 11/28/18 11/28/18 10:57 11:22 Temp 98.6 98.6 Pulse 128 Resp 16 B/P (MAP) 118/73 (88) Pulse Ox 98 O2 Delivery Room Air Progress Progress Note #1: Progress Note Tachycardic, RA sat 98%. Constant CP since 2100 (>12h) will check EKG, trop, d dimer, CXR, CBC, CMP. Progress Note #2: Time: 13:14 Progress Note HR 88, Sat 97% on RA. Ddimer negative, EKG, troponin, CXR unremarkable. CP seems related to cough, likely getting viral syndrome. Return precautions discussed. Initial ECG Impression Date: Nov 28, 2018 Initial ECG Impression Time: 11:10 Comment Sinus tach 110 bpm, normal axis, normal intervals, no hypertrophy, no STEMI. Diagnostic Imaging Diagonstic Imaging: Xray Plain Films/CT/US/NM/MRI: chest Comments no acute process. Departure Impression Primary Impression: Chest pain Additional Impression: Cough Disposition: 01 HOME, SELF-CARE Condition: Stable Departure-Patient Inst. Decision time for Depature: 13:42 Referrals: [facility] (PCP/Family) Primary Care Physician Patient Instructions: Chest Pain (DC), Cough, Adult (DC) Add. Discharge Instructions: All discharge instructions reviewed with patient and/or family. Voiced understanding. Scripts Guaifenesin/Codeine Phosphate (Guaifenesin-Codeine Syrup) 5 Ml Liquid 5 ML PO Q6H PRN for COUGH, #20 EA 0 Refills Prov: GABRIELA SEALS MD 11/28/18 GABRIELA SEALS MD Nov 28, 2018 10:59
--- OUTSIDE RECORDS SUMMARY | 2018-11-28 10:59 | XMS REPORT ---
Author Author FAROOQ BARROS Organization [facility] Address [address] [place] [address] Care Team Providers Care Lumber Scaler Name Role Phone FAROOQ BARROS Unavailable PROBLEMS Type Condition ICD9-CM Code JUK80-FY Code Onset Dates Condition Status SNOMED Code Problem Seasonal allergic rhinitis due to pollen J30.1 Active 42354085 Problem Amenorrhea N91.2 Active 94998758 Problem Encounter to establish care Z76.89 Active 057727816 Problem Hyperinsulinemia E16.1 Active 14279178 Problem Gastritis without bleeding, unspecified chronicity, unspecified gastritis type K29.70 Active 0048513 Problem Peptic ulcer K27.9 Active 45115987 Problem Acquired hypothyroidism E03.9 Active 806331669 Problem Obesity (BMI 30.0-34.9) E66.9 Active 940698853837294 Problem GERD without esophagitis K21.9 Active 318481825 Problem Family history of diabetes mellitus Z83.3 Active 023917358 ALLERGIES No Known Allergies ENCOUNTERS Encounter Location Date Diagnosis [facility] [id number], [place] [address] May, Hiatal hernia K44.9 ; Gastritis without bleeding, unspecified chronicity, unspecified gastritis type K29.70 and Acquired hypothyroidism E03.9 [facility] [id number] [address] Mar, [facility] [id number], [place] [address] Mar, [facility] [id number] [place] [address] 86357- 1020 Mar, [facility] [id number], [place] [address] Mar, [facility] [id number] [place] [address] 18582- 9398 Mar, Peptic ulcer K27.9 [facility] [id number] [place] [address] 35731- 4158 Feb, Acute pain of right shoulder M25.511 [facility] [id number] [place] [address] 85565- 1770 Feb, [facility] [address] [address]- [address] Feb, [facility] [id number] [place] [address] 77907- 8013 Feb, Peptic ulcer K27.9 and Left upper quadrant pain R10.12 [facility] [id number] [place] [address] 08705- 9127 January, [facility] [address] [address]- [address] January, Seasonal allergic rhinitis, unspecified trigger J30.2 [facility] [id number] [place] [address] 64706- 8182 Dec, Acquired hypothyroidism E03.9 [facility] [id number] [place] [address] 13746- 9047 Dec, [facility] [id number] [place] [address] 77635- 0033 Dec, [facility] [id number] [place] [address] 34538- 7850 Dec, [facility] [id number] [place] [address] 83568- 0711 Nov, [facility] [id number] [place] [address] 76789- 2694 Nov, GERD without esophagitis K21.9 [facility] [address] [place] [address] 60704- 3727 Nov, GERD without esophagitis K21.9 ; Pleuritic chest pain R07.81 and Chest pain, unspecified type R07.9 [place] [address] [address]- [address] 03 Mar, 2017 Otalgia of both ears H92.03 and Sensation of fullness in both ears H93.8X3 [place] [address] 7[address]- 9252 17 Nov, 2016 Amenorrhea N91.2 ; Hyperinsulinemia E16.1 and Obesity (BMI 30.0-34.9) E66.9 [place] [address] 65092- 7458 Nov, Amenorrhea N91.2 [place] [address] [address]- 1744 Oct, Amenorrhea N91.2 [place] [address] 03924- 6277 17 Oct, 2016 Encounter to establish care Z76.89 ; Family history of diabetes mellitus Z83.3 ; Acquired hypothyroidism E03.9 ; Amenorrhea N91.2 ; Seasonal allergic rhinitis due to pollen J30.1 and Obesity (BMI 30.0-34.9) E66.9 [place] [address] 40572- 1672 Oct, [place] [address] 27648- 7126 Sep, Seasonal allergic rhinitis due to pollen J30.1 IMMUNIZATIONS No Known Immunizations SOCIAL HISTORY Never Assessed REASON FOR VISIT New provider visit-OLVIN phan paient want to discuss taking medications PLAN OF CARE Activity Details Follow Up prn Reason: VITAL SIGNS Height 61.5 in 2018-06-13 Weight 178.9 lbs 2018-06-13 Temperature 97.6 degrees Fahrenheit 2018-06-13 Heart Rate 89 bpm 2018-06-13 Respiratory Rate 18 2018-06-13 Oximetry on room air:98 % 2018-06-13 BMI 33.25 kg/m2 2018-06-13 Blood pressure systolic 114 mmHg 2018-06-13 Blood pressure diastolic 70 mmHg 2018-06-13 MEDICATIONS Medication Instructions Dosage Frequency Start Date End Date Duration Status Meclizine HCl 25 MG Orally bid prn 1 tablet as needed January, 30 day(s) Not-Taking Flonase 50 MCG/ACT Nasally Once a day 2 sprays in each nare x 1 week, then 1 spray each nare 24h January, 30 day(s) Not-Taking Pantoprazole Sodium 40 mg Orally Once a day 1 tablet 24h Feb, 30 day(s) Active Levothyroxine Sodium 88 MCG Orally Once a day 1 tablet on an empty stomach in the morning 24h Active RESULTS No Results PROCEDURES No Known procedures INSTRUCTIONS MEDICATIONS ADMINISTERED No Known Medications MEDICAL (GENERAL) HISTORY Type Description Date Medical History Hypothyroidism Medical History Gastric Ulcers Medical History Gi scope Surgical History cholecystectomy 08/2016 Surgical History Left eye surgery as infant Surgical History tonsillectomy Hospitalization History Surgery(s) only
--- OUTSIDE RECORDS SUMMARY | 2018-11-28 11:00 | XMS REPORT ---
Author Author GEEARMENPARAG Organization [facility] Address [address] [place] [address] Care Team Providers Care Bight Maker Name Role Phone PARAG FLYNN Unavailable PROBLEMS Type Condition ICD9-CM Code EOA23-UJ Code Onset Dates Condition Status SNOMED Code Problem Hyperinsulinemia E16.1 Active 38971644 Problem Encounter to establish care Z76.89 Active 220146373 Problem Seasonal allergic rhinitis due to pollen J30.1 Active 08801297 Problem Peptic ulcer K27.9 Active 72337134 Problem GERD without esophagitis K21.9 Active 032784983 Problem Obesity (BMI 30.0-34.9) E66.9 Active 615269494481283 Problem Amenorrhea N91.2 Active 70890218 Problem Family history of diabetes mellitus Z83.3 Active 683579880 Problem Acquired hypothyroidism E03.9 Active 137910656 ALLERGIES No Information ENCOUNTERS Encounter Location Date Diagnosis [facility] [id number] [place] [address] 15466- 4210 Mar, [facility] [id number] [place] [address] 01902- 2499 Mar, [facility] [id number] [place] [address] 62328- 6177 Mar, [facility] [id number] [place] [address] 28017- 0016 Mar, [facility] [id number] [place] [address] 73414- 0844 Mar, Peptic ulcer K27.9 [facility] [id number] [place] [address] 64547- 3300 Feb, Acute pain of right shoulder M25.511 [facility] [id number] [place] [address] 88686- 5318 Feb, [facility] [id number] [place] [address] 93466- 1633 Feb, [facility] [id number] [place] [address] 31063- 5441 Feb, Peptic ulcer K27.9 and Left upper quadrant pain R10.12 [place] [id number] [place] [address] 09866- 9981 January, [facility] [id number] [place] [address] 73341- 8123 January, Seasonal allergic rhinitis, unspecified trigger J30.2 [place] [id number] [place] [address] 35025- 6804 Dec, Acquired hypothyroidism E03.9 [place] [id number] [place] [address] 68502- 9496 Dec, [place] [id number] [place] [address] 76920- 3534 Dec, [place] [id number] [place] [address] 86451- 9102 Dec, [place] [id number] [place] [address] 13458- 8345 Nov, [place] [id number] [place] [address] 45102- 4121 Nov, GERD without esophagitis K21.9 [place] [id number] [place] [address] 54833- 4101 Nov, GERD without esophagitis K21.9 ; Pleuritic chest pain R07.81 and Chest pain, unspecified type R07.9 [place] [address] [place] [address] 17546- 4615 Mar, Otalgia of both ears H92.03 and Sensation of fullness in both ears H93.8X3 [place] [id number] [place] [address] 05203- 3330 17 Nov, 2016 Amenorrhea N91.2 ; Hyperinsulinemia E16.1 and Obesity (BMI 30.0-34.9) E66.9 [place] [id number] [place] [address] 39032- 9683 08 Nov, 2016 Amenorrhea N91.2 [place] [address] 7[address]39- 6501 Oct, Amenorrhea N91.2 [place] [address] 72840- 7843 17 Oct, 2016 Encounter to establish care Z76.89 ; Family history of diabetes mellitus Z83.3 ; Acquired hypothyroidism E03.9 ; Amenorrhea N91.2 ; Seasonal allergic rhinitis due to pollen J30.1 and Obesity (BMI 30.0-34.9) E66.9 [place] [id number] [place] [address] 96210- 2297 Oct, [place] [id number] [place] [address] 06644- 2459 Sep, Seasonal allergic rhinitis due to pollen J30.1 IMMUNIZATIONS No Known Immunizations SOCIAL HISTORY Never Assessed REASON FOR VISIT Requests return call PLAN OF CARE VITAL SIGNS MEDICATIONS Unknown Medications RESULTS No Results PROCEDURES No Known procedures INSTRUCTIONS MEDICATIONS ADMINISTERED No Known Medications MEDICAL (GENERAL) HISTORY Type Description Date Medical History Hypothyroidism Medical History Gastric Ulcers Surgical History cholecystectomy 08/2016 Surgical History Left eye surgery as Surgical History tonsillectomy Hospitalization History Surgery(s) only
--- OUTSIDE RECORDS SUMMARY | 2018-11-28 11:00 | XMS REPORT ---
Author Author GEEPARAG Organization [facility] Address [address] [place] [address] Care Team Providers Care Energy Technician Name Role Phone PARAG FLYNN Unavailable PROBLEMS Type Condition ICD9-CM Code MOP23-YM Code Onset Dates Condition Status SNOMED Code Problem Hyperinsulinemia E16.1 Active 53858608 Problem Encounter to establish care Z76.89 Active 074910969 Problem Seasonal allergic rhinitis due to pollen J30.1 Active 95728396 Problem Peptic ulcer K27.9 Active 29856821 Problem GERD without esophagitis K21.9 Active 011479668 Problem Obesity (BMI 30.0-34.9) E66.9 Active 719827128933839 Problem Amenorrhea N91.2 Active 76268792 Problem Family history of diabetes mellitus Z83.3 Active 775127761 Problem Acquired hypothyroidism E03.9 Active 799730858 ALLERGIES No Information ENCOUNTERS Encounter Location Date Diagnosis [facility] [id number] [place] [address] 94905- 1368 Mar, [facility] [id number] [place] [address] 97825- 6202 Mar, [facility] [id number] [place] [address] 21068- 5184 Mar, [facility] [id number] [place] [address] 93376- 3052 Mar, [facility] [id number] [place] [address] 77685- 8914 Mar, Peptic ulcer K27.9 [facility] [id number] [place] [address] 71882- 1176 Feb, Acute pain of right shoulder M25.511 [facility] [id number] [place] [address] 18198- 6997 Feb, [facility] [id number] [place] [address] 94488- 1611 Feb, [facility] [id number] [place] [address] 81490- 6411 Feb, Peptic ulcer K27.9 and Left upper quadrant pain R10.12 [place] [id number] [place] [address] 28762- 3021 January, [facility] [id number] [place] [address] 74376- 6285 January, Seasonal allergic rhinitis, unspecified trigger J30.2 [place] [id number] [place] [address] 90271- 1906 Dec, Acquired hypothyroidism E03.9 [place] [id number] [place] [address] 30816- 6701 Dec, [place] [id number] [place] [address] 01760- 9097 Dec, [place] [id number] [place] [address] 55461- 0859 Dec, [place] [id number] [place] [address] 37790- 3674 Nov, [place] [id number] [place] [address] 58458- 3469 Nov, GERD without esophagitis K21.9 [place] [id number] [place] [address] 39607- 8543 Nov, GERD without esophagitis K21.9 ; Pleuritic chest pain R07.81 and Chest pain, unspecified type R07.9 [place] [id number] [place] [address] 11807- 6460 Mar, Otalgia of both ears H92.03 and Sensation of fullness in both ears H93.8X3 [place] [id number] [place] [address] 88922- 6008 17 Nov, 2016 Amenorrhea N91.2 ; Hyperinsulinemia E16.1 and Obesity (BMI 30.0-34.9) E66.9 [place] [id number] [place] [address] 44661- 3531 08 Nov, 2016 Amenorrhea N91.2 [place] [address] 91515- 6208 Oct, Amenorrhea N91.2 [place] [address] 57546- 9792 17 Oct, 2016 Encounter to establish care Z76.89 ; Family history of diabetes mellitus Z83.3 ; Acquired hypothyroidism E03.9 ; Amenorrhea N91.2 ; Seasonal allergic rhinitis due to pollen J30.1 and Obesity (BMI 30.0-34.9) E66.9 [place] [id number] [place] [address] 78148- 5860 Oct, [place] [id number] [place] [address] 74160- 3824 Sep, Seasonal allergic rhinitis due to pollen [...]
--- OUTSIDE RECORDS SUMMARY | 2018-11-28 11:00 | XMS REPORT ---
Author Author GEEPARAG Organization [facility] Address [address] [place] [address] Care Team Providers Care Glue Cook Name Role Phone PARAG FLYNN Unavailable PROBLEMS Type Condition ICD9-CM Code RVE88-CD Code Onset Dates Condition Status SNOMED Code Problem Hyperinsulinemia E16.1 Active 64763006 Problem Encounter to establish care Z76.89 Active 285557721 Problem Seasonal allergic rhinitis due to pollen J30.1 Active 04572770 Problem Peptic ulcer K27.9 Active 36535586 Problem GERD without esophagitis K21.9 Active 442532482 Problem Obesity (BMI 30.0-34.9) E66.9 Active 495405994943580 Problem Amenorrhea N91.2 Active 94627116 Problem Family history of diabetes mellitus Z83.3 Active 915555144 Problem Acquired hypothyroidism E03.9 Active 362664985 ALLERGIES No Information ENCOUNTERS Encounter Location Date Diagnosis [facility] [id number] [place] [address] 19859- 3812 Mar, [facility] [id number] [place] [address] 21427- 3947 Mar, [facility] [id number] [place] [address] 33907- 2186 Mar, [facility] [id number] [place] [address] 43641- 5020 Mar, [facility] [id number] [place] [address] 18051- 3646 Mar, Peptic ulcer K27.9 [facility] [id number] [place] [address] 44289- 2903 Feb, Acute pain of right shoulder M25.511 [facility] [id number] [place] [address] 80686- 6427 Feb, [facility] [id number] [place] [address] 78851- 3500 Feb, [facility] [id number] [place] [address] 33095- 3648 Feb, Peptic ulcer K27.9 and Left upper quadrant pain R10.12 [place] [id number] [place] [address] 30314- 9923 January, [facility] [id number] [place] [address] 46321- 4615 January, Seasonal allergic rhinitis, unspecified trigger J30.2 [place] [id number] [place] [address] 99197- 0822 Dec, Acquired hypothyroidism E03.9 [place] [id number] [place] [address] 28069- 4882 Dec, [place] [id number] [place] [address] 66070- 8848 Dec, [place] [id number] [place] [address] 23086- 0611 Dec, [place] [id number] [place] [address] 98766- 6094 Nov, [place] [id number] [place] [address] 52740- 7811 Nov, GERD without esophagitis K21.9 [place] [id number] [place] [address] 87748- 0792 Nov, GERD without esophagitis K21.9 ; Pleuritic chest pain R07.81 and Chest pain, unspecified type R07.9 [place] [address] [place] [address] 30338- 1828 Mar, Otalgia of both ears H92.03 and Sensation of fullness in both ears H93.8X3 [place] [id number] [place] [address] 38785- 2628 17 Nov, 2016 Amenorrhea N91.2 ; Hyperinsulinemia E16.1 and Obesity (BMI 30.0-34.9) E66.9 [place] [id number] [place] [address] 10087- 3558 08 Nov, 2016 Amenorrhea N91.2 [place] [address] 58582- 2769 Oct, Amenorrhea N91.2 [place] [address] 79890- 5360 17 Oct, 2016 Encounter to establish care Z76.89 ; Family history of diabetes mellitus Z83.3 ; Acquired hypothyroidism E03.9 ; Amenorrhea N91.2 ; Seasonal allergic rhinitis due to pollen J30.1 and Obesity (BMI 30.0-34.9) E66.9 [place] [id number] [place] [address] 52021- 8700 Oct, [place] [id number] [place] [address] 34474- 0013 Sep, Seasonal allergic rhinitis due to pollen J30.1 IMMUNIZATIONS No Known Immunizations SOCIAL HISTORY Never Assessed REASON FOR VISIT Referrals PLAN OF CARE VITAL SIGNS MEDICATIONS Unknown Medications RESULTS No Results PROCEDURES No Known procedures INSTRUCTIONS MEDICATIONS ADMINISTERED No Known Medications MEDICAL (GENERAL) HISTORY Type Description Date Medical History Hypothyroidism Medical History Gastric Ulcers Surgical History cholecystectomy 08/2016 Surgical History Left eye surgery as infant Surgical History tonsillectomy Hospitalization History Surgery(s) only
--- OUTSIDE RECORDS SUMMARY | 2018-11-28 11:00 | XMS REPORT ---
Author Author GEEPARAG Organization [facility] Address [address] [place] [address] Care Team Providers Care Area Manager Name Role Phone PARAG FLYNN Unavailable PROBLEMS Type Condition ICD9-CM Code LNO44-QX Code Onset Dates Condition Status SNOMED Code Problem Hyperinsulinemia E16.1 Active 13191734 Problem Encounter to establish care Z76.89 Active 736291967 Problem Seasonal allergic rhinitis due to pollen J30.1 Active 75963658 Problem Peptic ulcer K27.9 Active 43312410 Problem GERD without esophagitis K21.9 Active 192531034 Problem Obesity (BMI 30.0-34.9) E66.9 Active 986116040977338 Problem Amenorrhea N91.2 Active 64350860 Problem Family history of diabetes mellitus Z83.3 Active 512339760 Problem Acquired hypothyroidism E03.9 Active 986097761 ALLERGIES No Information ENCOUNTERS Encounter Location Date Diagnosis [facility] [id number] [place] [address] 46816- 2018 Mar, [facility] [id number] [place] [address] 33096- 9779 Mar, [facility] [id number] [place] [address] 54063- 2635 Mar, [facility] [id number] [place] [address] 63404- 1245 Mar, [facility] [id number] [place] [address] 40819- 6038 Mar, Peptic ulcer K27.9 [facility] [id number] [place] [address] 09909- 0774 Feb, Acute pain of right shoulder M25.511 [facility] [id number] [place] [address] 05024- 0119 Feb, [facility] [id number] [place] [address] 33690- 9812 Feb, [facility] [id number] [place] [address] 87511- 2224 Feb, Peptic ulcer K27.9 and Left upper quadrant pain R10.12 [place] [id number] [place] [address] 73408- 4335 January, [facility] [id number] [place] [address] 43263- 9100 January, Seasonal allergic rhinitis, unspecified trigger J30.2 [place] [id number] [place] [address] 51469- 8249 Dec, Acquired hypothyroidism E03.9 [place] [id number] [place] [address] 15390- 4174 Dec, [place] [id number] [place] [address] 01016- 8693 Dec, [place] [id number] [place] [address] 35897- 3481 Dec, [place] [id number] [place] [address] 30986- 4076 Nov, [place] [id number] [place] [address] 00087- 6586 Nov, GERD without esophagitis K21.9 [place] [id number] [place] [address] 89623- 1423 Nov, GERD without esophagitis K21.9 ; Pleuritic chest pain R07.81 and Chest pain, unspecified type R07.9 [place] [address] [place] [address] 32759- 9079 Mar, Otalgia of both ears H92.03 and Sensation of fullness in both ears H93.8X3 [place] [id number] [place] [address] 01693- 2422 17 Nov, 2016 Amenorrhea N91.2 ; Hyperinsulinemia E16.1 and Obesity (BMI 30.0-34.9) E66.9 [place] [id number] [place] [address] 16156- 7278 08 Nov, 2016 Amenorrhea N91.2 [place] [address] 57512- 5660 Oct, Amenorrhea N91.2 [place] [address] 59058- 3853 17 Oct, 2016 Encounter to establish care Z76.89 ; Family history of diabetes mellitus Z83.3 ; Acquired hypothyroidism E03.9 ; Amenorrhea N91.2 ; Seasonal allergic rhinitis due to pollen J30.1 and Obesity (BMI 30.0-34.9) E66.9 [place] [id number] [place] [address] 54704- 9659 Oct, [place] [id number] [place] [address] 69089- 6010 Sep, Seasonal allergic rhinitis due to pollen J30.1 IMMUNIZATIONS No Known Immunizations SOCIAL HISTORY Never Assessed REASON FOR VISIT referal PLAN OF CARE VITAL SIGNS MEDICATIONS Unknown Medications RESULTS No Results PROCEDURES No Known procedures INSTRUCTIONS MEDICATIONS ADMINISTERED No Known Medications MEDICAL (GENERAL) HISTORY Type Description Date Medical History Hypothyroidism Medical History Gastric Ulcers Surgical History cholecystectomy 08/2016 Surgical History Left eye surgery as infant Surgical History tonsillectomy Hospitalization History Surgery(s) only
--- OUTSIDE RECORDS SUMMARY | 2018-11-28 11:00 | XMS REPORT ---
Author Author GEEARMENPARAG Organization [facility] Address [address] [place] [address] Care Team Providers Care Image Consultant Name Role Phone PARAG FLYNN Unavailable PROBLEMS Type Condition ICD9-CM Code ZSX16-EQ Code Onset Dates Condition Status SNOMED Code Problem Hyperinsulinemia E16.1 Active 72813743 Problem Encounter to establish care Z76.89 Active 283979195 Problem Seasonal allergic rhinitis due to pollen J30.1 Active 83993994 Problem Peptic ulcer K27.9 Active 85751577 Problem GERD without esophagitis K21.9 Active 015374383 Problem Obesity (BMI 30.0-34.9) E66.9 Active 170485033205502 Problem Amenorrhea N91.2 Active 24020973 Problem Family history of diabetes mellitus Z83.3 Active 400231064 Problem Acquired hypothyroidism E03.9 Active 700183148 ALLERGIES No Known Allergies ENCOUNTERS Encounter Location Date Diagnosis [facility] [address] [place] [address] 41613- 3196 Mar, [facility] [address] [place] [address] 98315- 1402 Mar, [facility] [address] [place] [address] 78917- 4449 Mar, [facility] [address] [place] [address] 10961- 5536 Mar, [facility] [address] [place] [address] 56259- 0608 Mar, Peptic ulcer K27.9 [facility] [address] [place] [address] 89274- 3936 Feb, Acute pain of right shoulder M25.511 [facility] [id number] [place] [address] 62460- 3091 Feb, [facility] [id number] [place] [address] 34656- 6658 Feb, [facility] [id number] [place] [address] 84154- 6114 Feb, Peptic ulcer K27.9 and Left upper quadrant pain R10.12 [place] [address] 31906- 3278 January, [facility] [id number] [place] [address] 85764- 0455 January, Seasonal allergic rhinitis, unspecified trigger J30.2 [place] [id number] [place] [address] 17877- 2933 Dec, Acquired hypothyroidism E03.9 [place] [id number] [place] [address] 79834- 0679 Dec, [facility] [id number] [place] [address] 79531- 9291 Dec, [place] [id number] [place] [address] 04733- 1633 Dec, [facility] [id number] [place] [address] 48142- 9969 Nov, [place] [address] [place] [address] 38671- 1814 Nov, GERD without esophagitis K21.9 [facility] [id number] [place] [address] 73602- 0961 Nov, GERD without esophagitis K21.9 ; Pleuritic chest pain R07.81 and Chest pain, unspecified type R07.9 [facility] [address] [place] [address] 42193- 5515 Mar, Otalgia of both ears H92.03 and Sensation of fullness in both ears H93.8X3 [place] [id number] [place] [address] 59005- 5283 17 Nov, 2016 Amenorrhea N91.2 ; Hyperinsulinemia E16.1 and Obesity (BMI 30.0-34.9) E66.9 [place] [id number] [place] [address] 94862- 8154 08 Nov, 2016 Amenorrhea N91.2 [place] [id number] [place] [address] 39195- 0207 Oct, Amenorrhea N91.2 [place] [address] 95369- 8037 17 Oct, 2016 Encounter to establish care Z76.89 ; Family history of diabetes mellitus Z83.3 ; Acquired hypothyroidism E03.9 ; Amenorrhea N91.2 ; Seasonal allergic rhinitis due to pollen J30.1 and Obesity (BMI 30.0-34.9) E66.9 [place] [id number] [place] [address] 07182- 5732 Oct, [place] [id number] [place] [address] 97299- 7932 Sep, Seasonal allergic rhinitis due to pollen J30.1 IMMUNIZATIONS No Known Immunizations SOCIAL HISTORY Never Assessed REASON FOR VISIT Stomach ache-JEN phan, left side of stomach hurts feels like she is being stabbed and cant hold anything down PLAN OF CARE Activity Details Follow Up prn Reason: VITAL SIGNS Height 61.5 in 2018-02-21 Weight 184.9 lbs 2018-02-21 Temperature 98.3 degrees Fahrenheit 2018-02-21 Heart Rate 72 bpm 2018-02-21 Respiratory Rate 18 2018-02-21 BMI 34.37 kg/m2 2018-02-21 Blood pressure systolic 108 mmHg 2018-02-21 Blood pressure diastolic 72 mmHg 2018-02-21 MEDICATIONS Medication Instructions Dosage Frequency Start Date End Date Duration Status Meclizine HCl 25 MG Orally bid prn 1 tablet as needed January, 30 day(s) Active Sucralfate 1 GM Orally Twice a day 1 tablet twice a day on an empty stomach before meals 12h Feb, Feb, 14 days Active Levothyroxine Sodium 125 mcg Orally Once a day 1 tablet on an empty stomach in the morning 24h 30 days Active Pantoprazole Sodium 40 mg Orally Once a day 1 tablet 24h Feb, 30 day(s) Active Flonase 50 MCG/ACT Nasally Once a day 2 sprays in each nare x 1 week, then 1 spray each nare 24h January, 30 day(s) Active Ondansetron 8 MG Orally Twice a day 1 tablet on the tongue and allow to dissolve 12h Feb, 14 days Active RESULTS Name Result Date Reference Range H PYLORI (IN HOUSE) 2018-02-21 H. PYLORI negative Control + Lot # [id number] Exp date 07/31/18 PROCEDURES Procedure Date Ordered Result Body Site IMMUNOASSAY,INFECTIOUS AGENT February 21, 2018 INSTRUCTIONS MEDICATIONS ADMINISTERED No Known Medications MEDICAL (GENERAL) HISTORY Type Description Date Medical History Hypothyroidism Medical History Gastric Ulcers Surgical History cholecystectomy 08/2016 Surgical History Left eye surgery as infant Surgical History tonsillectomy Hospitalization History Surgery(s) only
--- OUTSIDE RECORDS SUMMARY | 2018-11-28 11:00 | XMS REPORT ---
Author Author GEEPARAG Organization [facility] Address [address] [place] [address] Care Team Providers Care Boat Tester Name Role Phone PARAG FLYNN Unavailable PROBLEMS Type Condition ICD9-CM Code KBT80-UH Code Onset Dates Condition Status SNOMED Code Problem Hyperinsulinemia E16.1 Active 33711300 Problem Encounter to establish care Z76.89 Active 595947951 Problem Seasonal allergic rhinitis due to pollen J30.1 Active 28118616 Problem Peptic ulcer K27.9 Active 97231343 Problem GERD without esophagitis K21.9 Active 050565510 Problem Obesity (BMI 30.0-34.9) E66.9 Active 738943279216634 Problem Amenorrhea N91.2 Active 58454240 Problem Family history of diabetes mellitus Z83.3 Active 801742540 Problem Acquired hypothyroidism E03.9 Active 356201914 ALLERGIES No Information ENCOUNTERS Encounter Location Date Diagnosis [facility] [id number] [place] [address] 59395- 6810 Mar, [facility] [id number] [place] [address] 62831- 3827 Mar, [facility] [id number] [place] [address] 52134- 7679 Mar, [facility] [id number] [place] [address] 51426- 7599 Mar, [facility] [id number] [place] [address] 17695- 1141 Mar, Peptic ulcer K27.9 [facility] [id number] [place] [address] 90069- 8298 Feb, Acute pain of right shoulder M25.511 [facility] [id number] [place] [address] 62587- 8713 Feb, [facility] [id number] [place] [address] 50599- 0894 Feb, [facility] [id number] [place] [address] 53076- 2830 Feb, Peptic ulcer K27.9 and Left upper quadrant pain R10.12 [place] [id number] [place] [address] 62246- 9043 January, [facility] [id number] [place] [address] 62947- 4882 January, Seasonal allergic rhinitis, unspecified trigger J30.2 [place] [id number] [place] [address] 70629- 6472 Dec, Acquired hypothyroidism E03.9 [place] [id number] [place] [address] 19140- 1007 Dec, [place] [id number] [place] [address] 80841- 5679 Dec, [place] [id number] [place] [address] 27449- 9183 Dec, [place] [id number] [place] [address] 93323- 6245 Nov, [place] [id number] [place] [address] 25249- 8338 Nov, GERD without esophagitis K21.9 [place] [id number] [place] [address] 57026- 9180 Nov, GERD without esophagitis K21.9 ; Pleuritic chest pain R07.81 and Chest pain, unspecified type R07.9 [place] [address] [place] [address] 52311- 1638 Mar, Otalgia of both ears H92.03 and Sensation of fullness in both ears H93.8X3 [place] [id number] [place] [address] 57187- 4585 17 Nov, 2016 Amenorrhea N91.2 ; Hyperinsulinemia E16.1 and Obesity (BMI 30.0-34.9) E66.9 [place] [id number] [place] [address] 74118- 1443 08 Nov, 2016 Amenorrhea N91.2 [place] [address] 14197- 6605 Oct, Amenorrhea N91.2 [place] [address] 64745- 2534 17 Oct, 2016 Encounter to establish care Z76.89 ; Family history of diabetes mellitus Z83.3 ; Acquired hypothyroidism E03.9 ; Amenorrhea N91.2 ; Seasonal allergic rhinitis due to pollen J30.1 and Obesity (BMI 30.0-34.9) E66.9 [place] [id number] [place] [address] 11573- 3427 Oct, [place] [id number] [place] [address] 13020- 4548 Sep, Seasonal allergic rhinitis due to pollen [...]
--- OUTSIDE RECORDS SUMMARY | 2018-11-28 11:00 | XMS REPORT ---
Author Author GEEARMENPARAG Organization [facility] Address [address] [place] [address] Care Team Providers Care Steam Shovelman Name Role Phone PARAG FLYNN Unavailable PROBLEMS Type Condition ICD9-CM Code WXN31-DW Code Onset Dates Condition Status SNOMED Code Problem Hyperinsulinemia E16.1 Active 18456608 Problem Encounter to establish care Z76.89 Active 650065902 Problem Seasonal allergic rhinitis due to pollen J30.1 Active 62379234 Problem Peptic ulcer K27.9 Active 56240755 Problem GERD without esophagitis K21.9 Active 452821103 Problem Obesity (BMI 30.0-34.9) E66.9 Active 658654452471881 Problem Amenorrhea N91.2 Active 84735995 Problem Family history of diabetes mellitus Z83.3 Active 546597765 Problem Acquired hypothyroidism E03.9 Active 280413076 ALLERGIES No Information ENCOUNTERS Encounter Location Date Diagnosis [facility] [id number] [place] [address] 73150- 7885 Mar, [facility] [id number] [place] [address] 84657- 5589 Mar, [facility] [id number] [place] [address] 04440- 6456 Mar, [facility] [id number] [place] [address] 20869- 2268 Mar, [facility] [id number] [place] [address] 49281- 2291 Mar, Peptic ulcer K27.9 [facility] [id number] [place] [address] 81578- 7578 Feb, Acute pain of right shoulder M25.511 [facility] [id number] [place] [address] 22556- 1469 Feb, [facility] [id number] [place] [address] 46319- 4161 Feb, [facility] [id number] [place] [address] 47681- 2966 Feb, Peptic ulcer K27.9 and Left upper quadrant pain R10.12 [place] [id number] [place] [address] 02092- 4921 January, [facility] [id number] [place] [address] 56501- 3789 January, Seasonal allergic rhinitis, unspecified trigger J30.2 [place] [id number] [place] [address] 71227- 7056 Dec, Acquired hypothyroidism E03.9 [place] [id number] [place] [address] 41699- 0030 Dec, [place] [id number] [place] [address] 50917- 6053 Dec, [place] [id number] [place] [address] 70281- 2975 Dec, [place] [id number] [place] [address] 12512- 0785 Nov, [place] [id number] [place] [address] 17159- 6961 Nov, GERD without esophagitis K21.9 [place] [id number] [place] [address] 01469- 7765 Nov, GERD without esophagitis K21.9 ; Pleuritic chest pain R07.81 and Chest pain, unspecified type R07.9 [place] [id number] [place] [address] 32903- 2537 Mar, Otalgia of both ears H92.03 and Sensation of fullness in both ears H93.8X3 [place] [address] [place] [place] [id number] [place] [address] 15469- [phone] 17 Nov, 2016 Amenorrhea N91.2 ; Hyperinsulinemia E16.1 and Obesity (BMI 30.0-34.9) E66.9 [place] [address] [id number] [place] [address] 34008- [phone] 08 Nov, 2016 Amenorrhea N91.2 [place] [address] 56879- 3705 Oct, Amenorrhea N91.2 [place] [address] 12321- 9831 17 Oct, 2016 Encounter to establish care Z76.89 ; Family history of diabetes mellitus Z83.3 ; Acquired hypothyroidism E03.9 ; Amenorrhea N91.2 ; Seasonal allergic rhinitis due to pollen J30.1 and Obesity (BMI 30.0-34.9) E66.9 [place] [address] [place] [place] [id number] [place] [address] 62491- [phone] Oct, [place] [address] [place] [place] [id number] [place] [address] [phone]- [phone] Sep, Seasonal allergic rhinitis due to pollen [...]
--- OUTSIDE RECORDS SUMMARY | 2018-11-28 11:00 | XMS REPORT ---
Author Author SALVADOR STONE [facility] Address [address] [place] [address] Care Team Providers Care Postmaster Name Role Phone FANY STONETA Unavailable PROBLEMS Type Condition ICD9-CM Code UKT73-EC Code Onset Dates Condition Status SNOMED Code Problem Hyperinsulinemia E16.1 Active 98013458 Problem Encounter to establish care Z76.89 Active 187361112 Problem Seasonal allergic rhinitis due to pollen J30.1 Active 38733296 Problem Peptic ulcer K27.9 Active 49201366 Problem GERD without esophagitis K21.9 Active 706563046 Problem Obesity (BMI 30.0-34.9) E66.9 Active 217779114789148 Problem Amenorrhea N91.2 Active 99184154 Problem Family history of diabetes mellitus Z83.3 Active 565829234 Problem Acquired hypothyroidism E03.9 Active 944106295 ALLERGIES No Known Allergies ENCOUNTERS Encounter Location Date Diagnosis [facility] [id number] [place] [address] 61040- 8658 Mar, [facility] [id number] [place] [address] 70036- 2589 Mar, [facility] [id number] [place] [address] 84941- 2851 Mar, [facility] [id number] [place] [address] 62783- 1454 Mar, [facility] [id number] [place] [address] 52796- 6845 Mar, Peptic ulcer K27.9 [facility] [id number] [place] [address] 84076- 1204 Feb, Acute pain of right shoulder M25.511 [facility] [id number] [place] [address] 17872- 0919 Feb, [facility] [id number] [place] [address] 44033- 9764 Feb, [facility] [id number] [place] [address] 01961- 6672 Feb, Peptic ulcer K27.9 and Left upper quadrant pain R10.12 [facility] [id number] [place] [address] 32132- 7954 January, [facility] [id number] [place] [address] 13783- 0411 January, Seasonal allergic rhinitis, unspecified trigger J30.2 [facility] [id number] [place] [address] 95462- 5407 Dec, Acquired hypothyroidism E03.9 [facility] [id number] [place] [address] 92417- 8408 Dec, [facility] [id number] [place] [address] 95884- 8863 Dec, [facility] [id number] [place] [address] 71075- 3810 Dec, [facility] [id number] [place] [address] 71112- 0808 Nov, [facility] [id number] [place] [address] 00056- 3170 Nov, GERD without esophagitis K21.9 [facility] [id number] [place] [address] 11075- 3841 Nov, GERD without esophagitis K21.9 ; Pleuritic chest pain R07.81 and Chest pain, unspecified type R07.9 [facility] [address] [place] [address] 44373- 5678 Mar, Otalgia of both ears H92.03 and Sensation of fullness in both ears H93.8X3 [facility] [id number] [place] [address] 66995- 6716 17 Nov, 2016 Amenorrhea N91.2 ; Hyperinsulinemia E16.1 and Obesity (BMI 30.0-34.9) E66.9 [facility] [id number] [place] [address] 64760- 3404 08 Nov, 2016 Amenorrhea N91.2 [facility] [id number] [place] [address] 24641- 0532 Oct, Amenorrhea N91.2 [facility] [address] 20619- 8802 17 Oct, 2016 Encounter to establish care Z76.89 ; Family history of diabetes mellitus Z83.3 ; Acquired hypothyroidism E03.9 ; Amenorrhea N91.2 ; Seasonal allergic rhinitis due to pollen J30.1 and Obesity (BMI 30.0-34.9) E66.9 [facility] [id number] [place] [address] 02387- 2553 Oct, [facility] [id number] [place] [address] 17441- 7452 Sep, Seasonal allergic rhinitis due to pollen J30.1 IMMUNIZATIONS No Known Immunizations SOCIAL HISTORY Never Assessed REASON FOR VISIT shoulder pain-right shoulder pain, does not recall and accidents, sharp pain when lifting arm, [facility] Activity Details Follow Up 2 Weeks Reason:shoulder pain VITAL SIGNS Height 61.5 in 2018-03-11 Weight 184.0 lbs 2018-03-11 Temperature 97.6 degrees Fahrenheit 2018-03-11 Heart Rate 72 bpm 2018-03-11 Respiratory Rate 18 2018-03-11 BMI 34.20 kg/m2 2018-03-11 Blood pressure systolic 114 mmHg 2018-03-11 Blood pressure diastolic 70 mmHg 2018-03-11 MEDICATIONS Medication Instructions Dosage Frequency Start Date End Date Duration Status Levothyroxine Sodium 125 mcg Orally Once a day 1 tablet on an empty stomach in the morning 24h 30 days Active Meclizine HCl 25 MG Orally bid prn 1 tablet as needed January, 30 day(s) Active Pantoprazole Sodium 40 mg Orally Once a day 1 tablet 24h 07 Feb, 2018 30 day(s) Active Flonase 50 MCG/ACT Nasally Once a day 2 sprays in each nare x 1 week, then 1 spray each nare 24h January, 30 day(s) Active Naproxen 500 mg Orally every 12 hrs 1 tablet with food or milk as needed 12h 25 Feb, 2018 Mar, 14 days Active RESULTS Name Result Date Reference Range Xray : Shoulder, Right 2 view (IN HOUSE) 2018-03-11 PROCEDURES Procedure Date Ordered Result Body Site X-RAY EXAM OF SHOULDER March 11, 2018 INSTRUCTIONS MEDICATIONS ADMINISTERED No Known Medications MEDICAL (GENERAL) HISTORY Type Description Date Medical History Hypothyroidism Medical History Gastric Ulcers Surgical History cholecystectomy 08/2016 Surgical History Left eye surgery as infant Surgical History tonsillectomy Hospitalization History Surgery(s) only
--- OUTSIDE RECORDS SUMMARY | 2018-11-28 11:00 | XMS REPORT ---
Author Author GEEARMENPARAG Organization [facility] Address [address] [place] [address] Care Team Providers Care Progressive Care Manager Name Role Phone PARAG FLYNN Unavailable PROBLEMS Type Condition ICD9-CM Code CLY30-OX Code Onset Dates Condition Status SNOMED Code Problem Hyperinsulinemia E16.1 Active 28631624 Problem Encounter to establish care Z76.89 Active 454109389 Problem Seasonal allergic rhinitis due to pollen J30.1 Active 97929201 Problem Peptic ulcer K27.9 Active 03877306 Problem GERD without esophagitis K21.9 Active 570390354 Problem Obesity (BMI 30.0-34.9) E66.9 Active 502296727050824 Problem Amenorrhea N91.2 Active 81649866 Problem Family history of diabetes mellitus Z83.3 Active 587074890 Problem Acquired hypothyroidism E03.9 Active 772908543 ALLERGIES No Information ENCOUNTERS Encounter Location Date Diagnosis [facility] [id number] [place] [address] 40358- 7141 Mar, [facility] [id number] [place] [address] 33285- 2925 Mar, [facility] [id number] [place] [address] 84084- 6945 Mar, [facility] [id number] [place] [address] 83504- 2862 Mar, [facility] [id number] [place] [address] 84041- 2302 Mar, Peptic ulcer K27.9 [facility] [id number] [place] [address] 89773- 7552 Feb, Acute pain of right shoulder M25.511 [facility] [id number] [place] [address] 88642- 8359 Feb, [facility] [id number] [place] [address] 73381- 1591 Feb, [facility] [id number] [place] [address] 34155- 6857 Feb, Peptic ulcer K27.9 and Left upper quadrant pain R10.12 [facility] [id number] [place] [address] 08750- 7751 January, [facility] [id number] [place] [address] 56325- 6547 January, Seasonal allergic rhinitis, unspecified trigger J30.2 [facility] [id number] [place] [address] 43490- 3965 Dec, Acquired hypothyroidism E03.9 [facility] [id number] [place] [address] 49938- 0059 Dec, [facility] [id number] [place] [address] 22316- 5632 Dec, [facility] [id number] [place] [address] 18307- 2522 Dec, [facility] [id number] [place] [address] 54419- 9952 Nov, [facility] [id number] [place] [address] 52086- 7359 Nov, GERD without esophagitis K21.9 [facility] [id number] [place] [address] 02376- 1474 Nov, GERD without esophagitis K21.9 ; Pleuritic chest pain R07.81 and Chest pain, unspecified type R07.9 [facility] [address] [place] [address] 53771- 1319 Mar, Otalgia of both ears H92.03 and Sensation of fullness in both ears H93.8X3 [facility] [id number] [place] [address] 93431- 6165 17 Nov, 2016 Amenorrhea N91.2 ; Hyperinsulinemia E16.1 and Obesity (BMI 30.0-34.9) E66.9 [facility] [id number] [place] [address] 82403- 6863 08 Nov, 2016 Amenorrhea N91.2 [facility] [facility] [address] 09054- 9332 Oct, Amenorrhea N91.2 [facility] [facility] [address] 88267- 2768 17 Oct, 2016 Encounter to establish care Z76.89 ; Family history of diabetes mellitus Z83.3 ; Acquired hypothyroidism E03.9 ; Amenorrhea N91.2 ; Seasonal allergic rhinitis due to pollen J30.1 and Obesity (BMI 30.0-34.9) E66.9 [facility] [id number] [place] [address] 01879- 2363 Oct, [facility] [id number] [place] [address] 09320- 4328 Sep, Seasonal allergic rhinitis due to pollen [...]
--- OUTSIDE RECORDS SUMMARY | 2018-11-28 11:01 | XMS REPORT ---
Author Author SALVADOR STONE [facility] Address [address] [place] [address] Care Team Providers Care Snuff Packing Machine Operator Name Role Phone FANY STONETA Unavailable PROBLEMS Type Condition ICD9-CM Code QHJ60-CZ Code Onset Dates Condition Status SNOMED Code Problem Hyperinsulinemia E16.1 Active 04999732 Problem Encounter to establish care Z76.89 Active 779425524 Problem Seasonal allergic rhinitis due to pollen J30.1 Active 41933896 Problem Peptic ulcer K27.9 Active 02137935 Problem GERD without esophagitis K21.9 Active 772343596 Problem Obesity (BMI 30.0-34.9) E66.9 Active 750340814795169 Problem Amenorrhea N91.2 Active 22835772 Problem Family history of diabetes mellitus Z83.3 Active 582588896 Problem Acquired hypothyroidism E03.9 Active 726909961 ALLERGIES No Known Allergies ENCOUNTERS Encounter Location Date Diagnosis [facility] [id number] [place] [address] 22712- 1363 Mar, [facility] [id number] [place] [address] 85691- 5139 Mar, [facility] [id number] [place] [address] 93971- 2053 Mar, [facility] [id number] [place] [address] 44408- 3638 Mar, [facility] [id number] [place] [address] 11648- 6644 Mar, Peptic ulcer K27.9 [facility] [id number] [place] [address] 96327- 6045 Feb, Acute pain of right shoulder M25.511 [facility] [id number] [place] [address] 17204- 6017 Feb, [facility] [id number] [place] [address] 05853- 5843 Feb, [facility] [id number] [place] [address] 40151- 0543 Feb, Peptic ulcer K27.9 and Left upper quadrant pain R10.12 [facility] [id number] [place] [address] 20636- 2775 January, [facility] [id number] [place] [address] 03159- 0009 January, Seasonal allergic rhinitis, unspecified trigger J30.2 [facility] [id number] [place] [address] 05900- 8739 Dec, Acquired hypothyroidism E03.9 [facility] [id number] [place] [address] 71673- 5353 Dec, [facility] [id number] [place] [address] 11190- 6898 Dec, [facility] [id number] [place] [address] 75385- 7683 Dec, [facility] [id number] [place] [address] 09541- 7946 Nov, [facility] [id number] [place] [address] 61995- 1340 Nov, GERD without esophagitis K21.9 [facility] [id number] [place] [address] 11172- 9166 Nov, GERD without esophagitis K21.9 ; Pleuritic chest pain R07.81 and Chest pain, unspecified type R07.9 [facility] [address] [place] [address] 13815- 0708 Mar, Otalgia of both ears H92.03 and Sensation of fullness in both ears H93.8X3 [facility] [id number] [place] [address] 37739- 1582 17 Nov, 2016 Amenorrhea N91.2 ; Hyperinsulinemia E16.1 and Obesity (BMI 30.0-34.9) E66.9 [facility] [id number] [place] [address] 28824- 1726 08 Nov, 2016 Amenorrhea N91.2 [facility] [address] 69947- 6088 Oct, Amenorrhea N91.2 [facility] [facility] [address] 52066- 8770 17 Oct, 2016 Encounter to establish care Z76.89 ; Family history of diabetes mellitus Z83.3 ; Acquired hypothyroidism E03.9 ; Amenorrhea N91.2 ; Seasonal allergic rhinitis due to pollen J30.1 and Obesity (BMI 30.0-34.9) E66.9 [facility] [id number] [place] [address] 11647- 2964 Oct, [facility] [id number] [place] [address] 72594- 4654 Sep, Seasonal allergic rhinitis due to pollen J30.1 IMMUNIZATIONS No Known Immunizations SOCIAL HISTORY Never Assessed REASON FOR VISIT Dizziness, started 01/12, unable to stand, room was spinning per patient. AMANDA Werner PLAN OF CARE Activity Details Follow Up prn Reason: VITAL SIGNS Height 61.5 in 2018-01-18 Weight 190.9 lbs 2018-01-18 Temperature 97.9 degrees Fahrenheit 2018-01-18 Heart Rate 68 bpm 2018-01-18 Respiratory Rate 18 2018-01-18 BMI 35.48 kg/m2 2018-01-18 Blood pressure systolic 98 mmHg 2018-01-18 Blood pressure diastolic 60 mmHg 2018-01-18 MEDICATIONS Medication Instructions Dosage Frequency Start Date End Date Duration Status Fluticasone Propionate 50 MCG/ACT Nasally Once a day 1 spray in each nostril 24h Oct, 30 day(s) Not-Taking Levothyroxine Sodium 125 MCG Orally Once a day 1 tablet on an empty stomach in the morning 24h 30 days Active Fexofenadine HCl 180 MG Orally Once a day 1 tablet as needed 24h January, Apr, 30 day(s) Active Flonase 50 MCG/ACT Nasally Once a day 2 sprays in each nare x 1 week, then 1 spray each nare 24h January, 30 day(s) Active Spironolactone 50 mg Orally Once a day in the morning 1 tablet Nov, Not-Taking Metformin HCl 850 MG Orally Once a day with evening meal 1 tablet with a meal Nov, 30 day(s) Not-Taking Omeprazole 20 mg Orally Once a day 1 capsule 24h Nov, 30 day(s ) Not-Taking Meclizine HCl 25 MG Orally bid prn 1 tablet as needed January, 30 day(s) Active RESULTS No Results PROCEDURES No Known procedures INSTRUCTIONS MEDICATIONS ADMINISTERED No Known Medications MEDICAL (GENERAL) HISTORY Type Description Date Medical History Hypothyroidism Medical History Gastric Ulcers Surgical History cholecystectomy 08/2016 Surgical History Left eye surgery as infant Surgical History tonsillectomy Hospitalization History Surgery(s) only
--- OUTSIDE RECORDS SUMMARY | 2018-11-28 11:01 | XMS REPORT ---
Author Author GEEARMENPARAG Organization [facility] Address [address] [place] [address] Care Team Providers Care Continuous Dryout Operator Name Role Phone PARAG FLYNN Unavailable PROBLEMS Type Condition ICD9-CM Code WPO60-EG Code Onset Dates Condition Status SNOMED Code Problem Hyperinsulinemia E16.1 Active 88689190 Problem Encounter to establish care Z76.89 Active 305707901 Problem Seasonal allergic rhinitis due to pollen J30.1 Active 60137141 Problem Peptic ulcer K27.9 Active 67966584 Problem GERD without esophagitis K21.9 Active 624415739 Problem Obesity (BMI 30.0-34.9) E66.9 Active 281287526289009 Problem Amenorrhea N91.2 Active 27300376 Problem Family history of diabetes mellitus Z83.3 Active 110998026 Problem Acquired hypothyroidism E03.9 Active 803404909 ALLERGIES No Information ENCOUNTERS Encounter Location Date Diagnosis [facility] [id number] [place] [address] 38437- 6941 Mar, [facility] [id number] [place] [address] 53787- 5286 Mar, [facility] [id number] [place] [address] 01131- 5307 Mar, [facility] [id number] [place] [address] 64950- 2306 Mar, [facility] [id number] [place] [address] 98641- 3899 Mar, Peptic ulcer K27.9 [facility] [id number] [place] [address] 18787- 0524 Feb, Acute pain of right shoulder M25.511 [facility] [id number] [place] [address] 22608- 3998 Feb, [facility] [id number] [place] [address] 93458- 5347 Feb, [facility] [id number] [place] [address] 09505- 9593 Feb, Peptic ulcer K27.9 and Left upper quadrant pain R10.12 [facility] [facility] [id number] [place] [address] 76373- 0950 January, [facility] [id number] [place] [address] 23060- 1793 January, Seasonal allergic rhinitis, unspecified trigger J30.2 [facility] [facility] [id number] [place] [address] 38730- 0111 Dec, Acquired hypothyroidism E03.9 [facility] [id number] [place] [address] 12405- 7125 Dec, [facility] [id number] [place] [address] 64180- 4245 Dec, [facility] [id number] [place] [address] 21396- 3405 Dec, [facility] [id number] [place] [address] 52437- 5970 Nov, [facility] [id number] [place] [address] 55935- 8028 Nov, GERD without esophagitis K21.9 [facility] [id number] [place] [address] 99208- 5597 Nov, GERD without esophagitis K21.9 ; Pleuritic chest pain R07.81 and Chest pain, unspecified type R07.9 [place] [address] [place] [address] 60894- 0470 Mar, Otalgia of both ears H92.03 and Sensation of fullness in both ears H93.8X3 [facility] [facility] [id number] [place] [address] 51272- 4133 17 Nov, 2016 Amenorrhea N91.2 ; Hyperinsulinemia E16.1 and Obesity (BMI 30.0-34.9) E66.9 [facility] [facility] [id number] [place] [address] 49561- 5576 08 Nov, 2016 Amenorrhea N91.2 [place] [address] 59482- 5117 Oct, Amenorrhea N91.2 [place] [address] 08835- 8649 17 Oct, 2016 Encounter to establish care Z76.89 ; Family history of diabetes mellitus Z83.3 ; Acquired hypothyroidism E03.9 ; Amenorrhea N91.2 ; Seasonal allergic rhinitis due to pollen J30.1 and Obesity (BMI 30.0-34.9) E66.9 [place] [id number] [place] [address] 37441- 1635 Oct, [facility] [facility] [id number] [place] [address] 54488- 3238 Sep, Seasonal allergic rhinitis due to pollen J30.1 IMMUNIZATIONS No Known Immunizations SOCIAL HISTORY Never Assessed REASON FOR VISIT Lab results PLAN OF CARE VITAL SIGNS MEDICATIONS Unknown Medications RESULTS No Results PROCEDURES No Known procedures INSTRUCTIONS MEDICATIONS ADMINISTERED No Known Medications MEDICAL (GENERAL) HISTORY Type Description Date Medical History Hypothyroidism Medical History Gastric Ulcers Surgical History cholecystectomy 08/2016 Surgical History Left eye surgery as Surgical History tonsillectomy Hospitalization History Surgery(s) only
--- OUTSIDE RECORDS SUMMARY | 2018-11-28 11:01 | XMS REPORT ---
Author Author GEEARMENPARAG Organization [facility] Address [address] [place] [address] Care Team Providers Care Military Education Coordinator Name Role Phone PARAG FLYNN Unavailable PROBLEMS Type Condition ICD9-CM Code [id number] Code Onset Dates Condition Status SNOMED Code Problem Hyperinsulinemia E16.1 Active 58317163 Problem Encounter to establish care Z76.89 Active 961868418 Problem Seasonal allergic rhinitis due to pollen J30.1 Active 24359294 Problem Peptic ulcer K27.9 Active 30289688 Problem GERD without esophagitis K21.9 Active 324011700 Problem Obesity (BMI 30.0-34.9) E66.9 Active 795196391281022 Problem Amenorrhea N91.2 Active 01657698 Problem Family history of diabetes mellitus Z83.3 Active 513824350 Problem Acquired hypothyroidism E03.9 Active 188371262 ALLERGIES No Information ENCOUNTERS Encounter Location Date Diagnosis [place] [id number] [place] [address] 16877- 7884 Mar, [place] [address] [place] [address] 54170- 4703 Feb, Acute pain of right shoulder M25.511 [place] [id number] [place] [address] 47621- 9494 Feb, [place] [id number] [place] [address] 88329- 9808 Feb, [place] [id number] [place] [address] 41710- 9731 Feb, Peptic ulcer K27.9 and Left upper quadrant pain R10.12 [place] [address] [place] [address] 84642- 5132 January, [place] [id number] [place] [address] 39360- 3219 January, Seasonal allergic rhinitis, unspecified trigger J30.2 [place] [address] 43902- 6384 Dec, Acquired hypothyroidism E03.9 [place] [address] 47526- 9402 Dec, [place] [address] 04298- 1495 Dec, [place] [address] 31210- 0337 Dec, [place] [address] 97369- 3829 Nov, [place] [address] 46698- 2640 Nov, GERD without esophagitis K21.9 [place] [id number] [place] [address] 69410- 7737 Nov, GERD without esophagitis K21.9 ; Pleuritic chest pain R07.81 and Chest pain, unspecified type R07.9 [place] [id number] [place] [address] 70013- 3115 Mar, Otalgia of both ears H92.03 and Sensation of fullness in both ears H93.8X3 [place] [id number] [place] [address] 68006- 7772 Nov, Amenorrhea N91.2 ; Hyperinsulinemia E16.1 and Obesity (BMI 30.0-34.9) E66.9 [place] [address] 26214- 4023 Nov, Amenorrhea N91.2 [place] [id number] [place] [address] 17585- 1793 Oct, Amenorrhea N91.2 [place] [address] [address] 00[address] 17 Oct, 2016 Encounter to establish care Z76.89 ; Family history of diabetes mellitus Z83.3 ; Acquired hypothyroidism E03.9 ; Amenorrhea N91.2 ; Seasonal allergic rhinitis due to pollen J30.1 and Obesity (BMI 30.0-34.9) E66.9 [place] [address] [facility] [id number] [address] 15 Oct, 2016 [place] [address] [facility] [id number] [address] 3309 Sep, Seasonal allergic rhinitis due to pollen J30.1 IMMUNIZATIONS No Known Immunizations SOCIAL HISTORY Never Assessed REASON FOR VISIT Requests return call PLAN OF CARE VITAL SIGNS MEDICATIONS Medication Instructions Dosage Frequency Start Date End Date Duration Status Omeprazole 20 mg Orally Once a day 1 capsule 24h Nov, 30 day(s ) Active RESULTS No Results PROCEDURES No Known procedures INSTRUCTIONS MEDICATIONS ADMINISTERED No Known Medications MEDICAL (GENERAL) HISTORY Type Description Date Medical History Hypothyroidism Medical History Gastric Ulcers Surgical History cholecystectomy 08/2016 Surgical History Left eye surgery as infant Surgical History tonsillectomy Hospitalization History Surgery(s) only
--- OUTSIDE RECORDS SUMMARY | 2018-11-28 11:01 | XMS REPORT ---
Author Author GEEARMENPARAG Organization [facility] Address [address] [place] [address] Care Team Providers Care Emergency Medical Tech Name Role Phone PARAG FLYNN Unavailable PROBLEMS Type Condition ICD9-CM Code HCN02-GF Code Onset Dates Condition Status SNOMED Code Problem Hyperinsulinemia E16.1 Active 56775234 Problem Encounter to establish care Z76.89 Active 738640416 Problem Seasonal allergic rhinitis due to pollen J30.1 Active 64296954 Problem Peptic ulcer K27.9 Active 06314415 Problem GERD without esophagitis K21.9 Active 864736417 Problem Obesity (BMI 30.0-34.9) E66.9 Active 196130304163941 Problem Amenorrhea N91.2 Active 55019121 Problem Family history of diabetes mellitus Z83.3 Active 088035807 Problem Acquired hypothyroidism E03.9 Active 965944920 ALLERGIES No Information ENCOUNTERS Encounter Location Date Diagnosis [facility] [id number] [place] [address] 95246- 0479 Mar, [facility] [id number] [place] [address] 58304- 0542 Mar, [facility] [id number] [place] [address] 22296- 7404 Mar, [facility] [id number] [place] [address] 23102- 6192 Mar, [facility] [id number] [place] [address] 83886- 7373 Mar, Peptic ulcer K27.9 [facility] [id number] [place] [address] 18128- 4610 Feb, Acute pain of right shoulder M25.511 [facility] [id number] [place] [address] 39807- 2496 Feb, [facility] [id number] [place] [address] 61052- 3426 Feb, [facility] [address] [place] [address] 69061- 1870 Feb, Peptic ulcer K27.9 and Left upper quadrant pain R10.12 [place] [address] [place] [address] 76833- 6891 January, [facility] [id number] [place] [address] 05397- 0773 January, Seasonal allergic rhinitis, unspecified trigger J30.2 [place] [address] [place] [address] 90340- 1342 Dec, Acquired hypothyroidism E03.9 [place] [address] [place] [address] 85692- 3142 Dec, [place] [id number] [place] [address] 37625- 5459 Dec, [place] [address] [place] [address] 70937- 3181 Dec, [place] [id number] [place] [address] 38171- 8591 Nov, [place] [address] [place] [address] 82649- 7364 Nov, GERD without esophagitis K21.9 [place] [address] [place] [address] 55524- 7318 Nov, GERD without esophagitis K21.9 ; Pleuritic chest pain R07.81 and Chest pain, unspecified type R07.9 [place] [address] [place] [address] 86597- 5485 Mar, Otalgia of both ears H92.03 and Sensation of fullness in both ears H93.8X3 [place] [address] [place] [address] 81685- 8130 17 Nov, 2016 Amenorrhea N91.2 ; Hyperinsulinemia E16.1 and Obesity (BMI 30.0-34.9) E66.9 [place] [address] [place] [address] 18360- 4231 08 Nov, 2016 Amenorrhea N91.2 [place] [address] 30380- 3431 Oct, Amenorrhea N91.2 [place] [address] 00231- 6842 17 Oct, 2016 Encounter to establish care Z76.89 ; Family history of diabetes mellitus Z83.3 ; Acquired hypothyroidism E03.9 ; Amenorrhea N91.2 ; Seasonal allergic rhinitis due to pollen J30.1 and Obesity (BMI 30.0-34.9) E66.9 [place] [address] [place] [address] 06764- 9083 Oct, [place] [id number] [place] [address] 62457- 7514 Sep, Seasonal allergic rhinitis due to pollen J30.1 IMMUNIZATIONS No Known Immunizations SOCIAL HISTORY Never Assessed REASON FOR VISIT Refill request PLAN OF CARE VITAL SIGNS MEDICATIONS Unknown Medications RESULTS No Results PROCEDURES No Known procedures INSTRUCTIONS MEDICATIONS ADMINISTERED No Known Medications MEDICAL (GENERAL) HISTORY Type Description Date Medical History Hypothyroidism Medical History Gastric Ulcers Surgical History cholecystectomy 08/2016 Surgical History Left eye surgery as infant Surgical History tonsillectomy Hospitalization History Surgery(s) only
--- OUTSIDE RECORDS SUMMARY | 2018-11-28 11:01 | XMS REPORT ---
Author Author GEEARMENPARAG Organization [facility] Address [address] [place] [address] Care Team Providers Care Currency Examiner Name Role Phone PARAG FLYNN Unavailable PROBLEMS Type Condition ICD9-CM Code PFM55-MR Code Onset Dates Condition Status SNOMED Code Problem Hyperinsulinemia E16.1 Active 46195092 Problem Encounter to establish care Z76.89 Active 829086694 Problem Seasonal allergic rhinitis due to pollen J30.1 Active 24080130 Problem Peptic ulcer K27.9 Active 05079013 Problem GERD without esophagitis K21.9 Active 075552036 Problem Obesity (BMI 30.0-34.9) E66.9 Active 914936101829714 Problem Amenorrhea N91.2 Active 59390568 Problem Family history of diabetes mellitus Z83.3 Active 970673851 Problem Acquired hypothyroidism E03.9 Active 685186434 ALLERGIES No Information ENCOUNTERS Encounter Location Date Diagnosis [place] [id number] [place] [address] 32438- 4051 Mar, [place] [address] [place] [address] 50913- 4584 Feb, Acute pain of right shoulder M25.511 [place] [id number] [place] [address] 57804- 2103 Feb, [place] [id number] [place] [address] 30072- 5290 Feb, [place] [id number] [place] [address] 89129- 8428 Feb, Peptic ulcer K27.9 and Left upper quadrant pain R10.12 [place] [address] [place] [address] 99569- 9034 January, [place] [id number] [place] [address] 07978- 9621 January, Seasonal allergic rhinitis, unspecified trigger J30.2 [place] [address] 29683- 3068 Dec, Acquired hypothyroidism E03.9 [place] [address] 31632- 1599 Dec, [place] [address] 62534- 5372 Dec, [place] [address] 28595- 9763 Dec, [place] [address] 85540- 4942 Nov, [place] [address] 35044- 7408 Nov, GERD without esophagitis K21.9 [place] [id number] [place] [address] 11735- 1523 Nov, GERD without esophagitis K21.9 ; Pleuritic chest pain R07.81 and Chest pain, unspecified type R07.9 [place] [id number] [place] [address] 25492- 3202 Mar, Otalgia of both ears H92.03 and Sensation of fullness in both ears H93.8X3 [place] [id number] [place] [address] 83911- 2655 Nov, Amenorrhea N91.2 ; Hyperinsulinemia E16.1 and Obesity (BMI 30.0-34.9) E66.9 [place] [address] 85373- 3691 Nov, Amenorrhea N91.2 [place] [id number] [place] [address] 46958- 9154 Oct, Amenorrhea N91.2 [place] [address] [address]- 8026 17 Oct, 2016 Encounter to establish care Z76.89 ; Family history of diabetes mellitus Z83.3 ; Acquired hypothyroidism E03.9 ; Amenorrhea N91.2 ; Seasonal allergic rhinitis due to pollen J30.1 and Obesity (BMI 30.0-34.9) E66.9 [place] [address] [facility] [id number] [address]- [address]17 15 Oct, 2016 [place] [address] [facility] [id number] [address]- 4773 Sep, Seasonal allergic rhinitis due to pollen [...]
--- OUTSIDE RECORDS SUMMARY | 2018-11-28 11:01 | XMS REPORT ---
Author Author GEEARMENPARAG Organization [facility] Address [address] [place] [address] Care Team Providers Care Family Literacy Coordinator Name Role Phone PARAG FLYNN Unavailable PROBLEMS Type Condition ICD9-CM Code WWK41-SB Code Onset Dates Condition Status SNOMED Code Problem Hyperinsulinemia E16.1 Active 76667878 Problem Encounter to establish care Z76.89 Active 060544305 Problem Seasonal allergic rhinitis due to pollen J30.1 Active 74028981 Problem Peptic ulcer K27.9 Active 08791025 Problem GERD without esophagitis K21.9 Active 658010464 Problem Obesity (BMI 30.0-34.9) E66.9 Active 748610279841328 Problem Amenorrhea N91.2 Active 11830228 Problem Family history of diabetes mellitus Z83.3 Active 616190039 Problem Acquired hypothyroidism E03.9 Active 942964696 ALLERGIES No Information ENCOUNTERS Encounter Location Date Diagnosis [facility] [id number] [place] [address] 94917- 1898 Mar, [facility] [id number] [place] [address] 99406- 7824 Mar, [facility] [id number] [place] [address] 68290- 4508 Mar, [facility] [id number] [place] [address] 32723- 2033 Mar, [facility] [id number] [place] [address] 04910- 4720 Mar, Peptic ulcer K27.9 [facility] [id number] [place] [address] 25833- 6943 Feb, Acute pain of right shoulder M25.511 [facility] [id number] [place] [address] 89448- 5296 Feb, [facility] [id number] [place] [address] 59769- 9426 Feb, [facility] [id number] [place] [address] 50032- 0543 Feb, Peptic ulcer K27.9 and Left upper quadrant pain R10.12 [place] [id number] [place] [address] 05965- 4602 January, [facility] [id number] [place] [address] 72477- 7243 January, Seasonal allergic rhinitis, unspecified trigger J30.2 [place] [id number] [place] [address] 19516- 8843 Dec, Acquired hypothyroidism E03.9 [place] [id number] [place] [address] 06152- 7189 Dec, [place] [id number] [place] [address] 79051- 3040 Dec, [place] [id number] [place] [address] 46518- 6171 Dec, [place] [id number] [place] [address] 54243- 3151 Nov, [place] [id number] [place] [address] 43379- 8535 Nov, GERD without esophagitis K21.9 [place] [id number] [place] [address] 24675- 5402 Nov, GERD without esophagitis K21.9 ; Pleuritic chest pain R07.81 and Chest pain, unspecified type R07.9 [place] [address] [place] [address] 01236- 5328 Mar, Otalgia of both ears H92.03 and Sensation of fullness in both ears H93.8X3 [place] [id number] [place] [address] 89599- 4197 Nov, Amenorrhea N91.2 ; Hyperinsulinemia E16.1 and Obesity (BMI 30.0-34.9) E66.9 [place] [id number] [place] [address] 26064- 1362 Nov, Amenorrhea N91.2 [place] [id number] [place] [address] 98541- 2286 Oct, Amenorrhea N91.2 [place] [address] 69619- 8535 Oct, Encounter to establish care Z76.89 ; Family history of diabetes mellitus Z83.3 ; Acquired hypothyroidism E03.9 ; Amenorrhea N91.2 ; Seasonal allergic rhinitis due to pollen J30.1 and Obesity (BMI 30.0-34.9) E66.9 [place] [id number] [place] [address] 35818- 6578 Oct, [place] [id number] [place] [address] 11230- 0846 Sep, Seasonal allergic rhinitis due to pollen J30.1 IMMUNIZATIONS No Known Immunizations SOCIAL HISTORY Never Assessed REASON FOR VISIT Lab results PLAN OF CARE VITAL SIGNS MEDICATIONS Medication Instructions Dosage Frequency Start Date End Date Duration Status Metformin HCl 850 MG Orally Once a day with evening meal 1 tablet with a meal Nov, 30 day(s) Active RESULTS No Results PROCEDURES No Known procedures INSTRUCTIONS MEDICATIONS ADMINISTERED No Known Medications MEDICAL (GENERAL) HISTORY Type Description Date Medical History Hypothyroidism Medical History Gastric Ulcers Surgical History cholecystectomy 08/2016 Surgical History Left eye surgery as infant Surgical History tonsillectomy Hospitalization History Surgery(s) only
--- OUTSIDE RECORDS SUMMARY | 2018-11-28 11:01 | XMS REPORT ---
Author Author GEEARMENPARAG Organization [facility] Address [address] [place] [address] Care Team Providers Care Labourers Name Role Phone PARAG FLYNN Unavailable PROBLEMS Type Condition ICD9-CM Code OHY02-HN Code Onset Dates Condition Status SNOMED Code Problem Hyperinsulinemia E16.1 Active 66805714 Problem Encounter to establish care Z76.89 Active 414577608 Problem Seasonal allergic rhinitis due to pollen J30.1 Active 38312829 Problem Peptic ulcer K27.9 Active 59663893 Problem GERD without esophagitis K21.9 Active 745190504 Problem Obesity (BMI 30.0-34.9) E66.9 Active 850208064212816 Problem Amenorrhea N91.2 Active 51338833 Problem Family history of diabetes mellitus Z83.3 Active 602474492 Problem Acquired hypothyroidism E03.9 Active 758709479 ALLERGIES No Information ENCOUNTERS Encounter Location Date Diagnosis [facility] [id number] [place] [address] 40415- 2792 Mar, [facility] [id number] [place] [address] 94133- 8654 Mar, [facility] [id number] [place] [address] 04043- 5272 Mar, [facility] [id number] [place] [address] 92693- 6887 Mar, [facility] [id number] [place] [address] 41195- 0366 Mar, Peptic ulcer K27.9 [facility] [id number] [place] [address] 86796- 3622 Feb, Acute pain of right shoulder M25.511 [facility] [id number] [place] [address] 72206- 1670 Feb, [facility] [id number] [place] [address] 00361- 7344 Feb, [facility] [id number] [place] [address] 53722- 5736 Feb, Peptic ulcer K27.9 and Left upper quadrant pain R10.12 [place] [id number] [place] [address] 52544- 0318 January, [facility] [id number] [place] [address] 30738- 4538 January, Seasonal allergic rhinitis, unspecified trigger J30.2 [place] [id number] [place] [address] 14048- 3555 Dec, Acquired hypothyroidism E03.9 [place] [id number] [place] [address] 58348- 9482 Dec, [place] [id number] [place] [address] 53858- 8100 Dec, [place] [id number] [place] [address] 09463- 5633 Dec, [place] [id number] [place] [address] 36899- 5551 Nov, [place] [id number] [place] [address] 11055- 6529 Nov, GERD without esophagitis K21.9 [place] [id number] [place] [address] 97800- 5305 Nov, GERD without esophagitis K21.9 ; Pleuritic chest pain R07.81 and Chest pain, unspecified type R07.9 [place] [address] [place] [address] 00318- 6205 Mar, Otalgia of both ears H92.03 and Sensation of fullness in both ears H93.8X3 [place] [id number] [address]- 5552 17 Nov, 2016 Amenorrhea N91.2 ; Hyperinsulinemia E16.1 and Obesity (BMI 30.0-34.9) E66.9 [place] [address] [place] [address] 61160- 3498 08 Nov, 2016 Amenorrhea N91.2 [place] [id number] [place] [address] 43661- 9125 Oct, Amenorrhea N91.2 [place] [id number] [place] [address] 42545- 7949 17 Oct, 2016 Encounter to establish care Z76.89 ; Family history of diabetes mellitus Z83.3 ; Acquired hypothyroidism E03.9 ; Amenorrhea N91.2 ; Seasonal allergic rhinitis due to pollen J30.1 and Obesity (BMI 30.0-34.9) E66.9 [place] [id number] [place] [address] 68689- 4429 Oct, [place] [id number] [place] [address] 02769- 7189 Sep, Seasonal allergic rhinitis due to pollen J30.1 IMMUNIZATIONS No Known Immunizations SOCIAL HISTORY Never Assessed REASON FOR VISIT Medication refill request PLAN OF CARE VITAL SIGNS MEDICATIONS Medication Instructions Dosage Frequency Start Date End Date Duration Status Levothyroxine Sodium 125 mcg Orally Once a day 1 tablet on an empty stomach in the morning 24h 30 days Active RESULTS No Results PROCEDURES No Known procedures INSTRUCTIONS MEDICATIONS ADMINISTERED No Known Medications MEDICAL (GENERAL) HISTORY Type Description Date Medical History Hypothyroidism Medical History Gastric Ulcers Surgical History cholecystectomy 08/2016 Surgical History Left eye surgery as Surgical History tonsillectomy Hospitalization History Surgery(s) only
--- OUTSIDE RECORDS SUMMARY | 2018-11-28 11:01 | XMS REPORT ---
Author Author GEE PARAG Organization [facility] Address [address] [place] [address] Care Team Providers Care Sales Administration Specialist Name Role Phone FLYNNPARAG Milton Unavailable PROBLEMS Type Condition ICD9-CM Code [id number] Code Onset Dates Condition Status SNOMED Code Problem Hyperinsulinemia E16.1 Active 92279355 Problem Encounter to establish care Z76.89 Active 727907478 Problem Seasonal allergic rhinitis due to pollen J30.1 Active 29015100 Problem Peptic ulcer K27.9 Active 96624139 Problem GERD without esophagitis K21.9 Active 328802365 Problem Obesity (BMI 30.0-34.9) E66.9 Active [id number] Problem Amenorrhea N91.2 Active 99083507 Problem Family history of diabetes mellitus Z83.3 Active 575521930 Problem Acquired hypothyroidism E03.9 Active 445181209 ALLERGIES No Known Allergies ENCOUNTERS Encounter Location Date Diagnosis [place] [id number] [place] [address] 76072- 5396 Mar, [place] [id number] [place] [address] 03613- 6915 Feb, Acute pain of right shoulder M25.511 [place] [id number] [place] [address] 43606- 9164 Feb, [place] [id number] [place] [address] 87172- 2358 Feb, [place] [id number] [place] [address] 46978- 9220 Feb, Peptic ulcer K27.9 and Left upper quadrant pain R10.12 [place] [id number] [place] [address] 90946- 8086 January, [place] [id number] [place] [address] 69754- 0794 January, Seasonal allergic rhinitis, unspecified trigger J30.2 [place] [address] 28467- 7442 Dec, Acquired hypothyroidism E03.9 [place] [id number] [place] [address] 49306- 3327 Dec, [place] [address] 84086- 5590 Dec, [place] [address] 43277- 7088 Dec, [place] [address] 48320- 0563 Nov, [place] [id number] [place] [address] 34571- 0439 Nov, GERD without esophagitis K21.9 [place] [id number] [place] [address] 77507- 9379 Nov, GERD without esophagitis K21.9 ; Pleuritic chest pain R07.81 and Chest pain, unspecified type R07.9 [place] [id number] [place] [address] 07609- 6374 Mar, Otalgia of both ears H92.03 and Sensation of fullness in both ears H93.8X3 [place] [id number] [place] [address] 28951- 6954 Nov, Amenorrhea N91.2 ; Hyperinsulinemia E16.1 and Obesity (BMI 30.0-34.9) E66.9 [place] [address] 30715- 5185 Nov, Amenorrhea N91.2 [place] [id number] [place] [address] 63048- 3237 Oct, Amenorrhea N91.2 [place] [address] [place] [id number] [place] [address] 17 Oct, 2016 Encounter to establish care Z76.89 ; Family history of diabetes mellitus Z83.3 ; Acquired hypothyroidism E03.9 ; Amenorrhea N91.2 ; Seasonal allergic rhinitis due to pollen J30.1 and Obesity (BMI 30.0-34.9) E66.9 [place] [address] [facility] [id number] [address] Oct, [place] [address] [facility] [id number] [address] Sep, Seasonal allergic rhinitis due to pollen J30.1 IMMUNIZATIONS No Known Immunizations SOCIAL HISTORY Never Assessed REASON FOR VISIT Stomach ache--tjanssenMA, --c/o chest hurting, coughing. No production. Has been happening for the past couple days. PLAN OF CARE Activity Details Follow Up prn Reason: VITAL SIGNS Height 61.5 in 2017-11-16 Weight 185.5 lbs 2017-11-16 Temperature 98.8 degrees Fahrenheit 2017-11-16 Heart Rate 88 bpm 2017-11-16 Respiratory Rate 20 2017-11-16 BMI 34.48 kg/m2 2017-11-16 Blood pressure systolic 118 mmHg 2017-11-16 Blood pressure diastolic 70 mmHg 2017-11-16 MEDICATIONS Medication Instructions Dosage Frequency Start Date End Date Duration Status Metformin HCl 850 MG Orally Once a day with evening meal 1 tablet with a meal Nov, 30 day(s) Not-Taking Levothyroxine Sodium 100 MCG Orally Once a day 1 tablet on an empty stomach in the morning 24h Active Omeprazole 20 mg Orally Once a day 1 capsule 24h Nov, 30 day(s ) Active Indomethacin 25 MG Orally Twice a day 1 capsule with food or milk 12h Nov, Dec, 30 day(s) Active Fluticasone Propionate 50 MCG/ACT Nasally Once a day 1 spray in each nostril 24h Oct, 30 day(s) Not-Taking Spironolactone 50 mg Orally Once a day in the morning 1 tablet Nov, Not-Taking RESULTS No Results PROCEDURES Procedure Date Ordered Result Body Site EKG, TRACING (IN-HOUSE) 2017-11-16 N/A ELECTROCARDIOGRAM, TRACING November 16, 2017 INSTRUCTIONS MEDICATIONS ADMINISTERED No Known Medications MEDICAL (GENERAL) HISTORY Type Description Date Medical History Hypothyroidism Medical History Gastric Ulcers Surgical History cholecystectomy 08/2016 Surgical History Left eye surgery as infant Surgical History tonsillectomy Hospitalization History Surgery(s) only
--- OUTSIDE RECORDS SUMMARY | 2018-11-28 11:01 | XMS REPORT ---
Author Author GEEARMENPARAG Organization [facility] Address [address] [place] [address] Care Team Providers Care Locker Room Clerk Name Role Phone PARAG FLYNN Unavailable PROBLEMS Type Condition ICD9-CM Code [id number] Code Onset Dates Condition Status SNOMED Code Problem Hyperinsulinemia E16.1 Active 99578848 Problem Encounter to establish care Z76.89 Active 940736759 Problem Seasonal allergic rhinitis due to pollen J30.1 Active 04500203 Problem Peptic ulcer K27.9 Active 63892979 Problem GERD without esophagitis K21.9 Active 338558698 Problem Obesity (BMI 30.0-34.9) E66.9 Active 376250981879903 Problem Amenorrhea N91.2 Active 02505218 Problem Family history of diabetes mellitus Z83.3 Active 781336281 Problem Acquired hypothyroidism E03.9 Active 528808450 ALLERGIES No Information ENCOUNTERS Encounter Location Date Diagnosis [facility] [id number] [place] [address] 06907- 0285 Mar, [facility] [id number] [place] [address] 21998- 3540 Mar, [facility] [id number] [place] [address] 94961- 5670 Mar, [facility] [id number] [place] [address] 04213- 7991 Mar, [facility] [id number] [place] [address] 55074- 7106 Mar, Peptic ulcer K27.9 [facility] [id number] [place] [address] 88705- 1321 Feb, Acute pain of right shoulder M25.511 [facility] [id number] [place] [address] 15371- 3807 Feb, [facility] [id number] [place] [address] 92674- 4281 Feb, [facility] [id number] [place] [address] 98109- 7410 Feb, Peptic ulcer K27.9 and Left upper quadrant pain R10.12 [place] [id number] [place] [address] 43668- 7716 January, [facility] [id number] [place] [address] 57848- 9230 January, Seasonal allergic rhinitis, unspecified trigger J30.2 [place] [id number] [place] [address] 26455- 0717 Dec, Acquired hypothyroidism E03.9 [place] [id number] [place] [address] 21425- 1727 Dec, [place] [id number] [place] [address] 68181- 4814 Dec, [place] [id number] [place] [address] 34992- 6468 Dec, [place] [id number] [place] [address] 80882- 7437 Nov, [place] [id number] [place] [address] 25194- 0643 Nov, GERD without esophagitis K21.9 [place] [id number] [place] [address] 64797- 5935 Nov, GERD without esophagitis K21.9 ; Pleuritic chest pain R07.81 and Chest pain, unspecified type R07.9 [place] [address] [place] [address] 16560- 5400 Mar, Otalgia of both ears H92.03 and Sensation of fullness in both ears H93.8X3 [place] [id number] [address] 17 Nov, 2016 Amenorrhea N91.2 ; Hyperinsulinemia E16.1 and Obesity (BMI 30.0-34.9) E66.9 [place] [id number] [place] [address] 35283- 7084 08 Nov, 2016 Amenorrhea N91.2 [place] [id number] [place] [address] 91849- 7336 Oct, Amenorrhea N91.2 [place] [id number] [place] [address] 15294- 6517 17 Oct, 2016 Encounter to establish care Z76.89 ; Family history of diabetes mellitus Z83.3 ; Acquired hypothyroidism E03.9 ; Amenorrhea N91.2 ; Seasonal allergic rhinitis due to pollen J30.1 and Obesity (BMI 30.0-34.9) E66.9 [place] [id number] [place] [address] 23996- 2746 Oct, [place] [address] [id number] [place] [address] 77306- 9876 Sep, Seasonal allergic rhinitis due to pollen J30.1 IMMUNIZATIONS No Known Immunizations SOCIAL HISTORY Never Assessed REASON FOR VISIT Refill request PLAN OF CARE Activity Details Pending Test THYROID ANALYZER VITAL SIGNS MEDICATIONS Medication Instructions Dosage Frequency Start Date End Date Duration Status Levothyroxine Sodium 125 MCG Orally Once a day 1 tablet on an empty stomach in the morning 24h 30 days Active RESULTS No Results PROCEDURES Procedure Date Ordered Result Body Site ASSAY THYROID STIM HORMONE January 14, 2018 INSTRUCTIONS MEDICATIONS ADMINISTERED No Known Medications MEDICAL (GENERAL) HISTORY Type Description Date Medical History Hypothyroidism Medical History Gastric Ulcers Surgical History cholecystectomy 08/2016 Surgical History Left eye surgery as Surgical History tonsillectomy Hospitalization History Surgery(s) only
[2018-11-28] MEDS ORDERED: NS IV 1000 ML 1,000 ML IV SCH (11:15)
[2018-11-28] MEDS ORDERED: ONDANSETRON 4 MG/2 ML (SDV) Z0FRAN IVP ONE (11:15)
[2018-11-28] MEDS ORDERED: KETOROLAC 30 MG/ML VIAL IVP ONE (11:15)
--- NOTE | 2018-11-28 11:25 | NUR ---
Butterfly venipuncture for labs, IV site will not draw
--- NOTE | 2018-11-28 11:34 | NUR ---
PCXR being completed
--- NOTE | 2018-11-28 12:02 | Diagnostic Imaging Report ---
INDICATION: Chest pain. TIME OF EXAM: 10:36 a.m. COMPARISON: No prior study is available for comparison. FINDINGS: The heart size is normal. The pulmonary vascularity is unremarkable. The lungs are clear. No infiltrate, effusion or pneumothorax is detected. IMPRESSION: No acute cardiopulmonary process is detected. Dictated by: Dictated on workstation # [id number]
[2018-11-28 12:12] LABS: BASOPHILS % (AUTO) 0 % (0-10); EOSINOPHILS % (AUTO) 1 % (0-10); HEMATOCRIT 40 % (35-52); HEMOGLOBIN 13.6 G/DL (11.5-16.0); LYMPHOCYTES % (AUTO) 12 % (12-44); MEAN CORPUSCULAR HEMOGLOBIN 30 PG (25-34); MEAN CORPUSCULAR HGB CONC 34 G/DL (32-36); MEAN CORPUSCULAR VOLUME 88 FL (80-99); MEAN PLATELET VOLUME 9.9 FL (7.4-10.4); MONOCYTES % (AUTO) 9 % (0-12); NEUTROPHILS % (AUTO) 78 % (42-75); PLATELET COUNT 233 10^3/uL (130-400); RED CELL DISTRIBUTION WIDTH 12.7 % (10.0-14.5); WHITE BLOOD COUNT 6.2 10^3/uL (4.3-11.0)
[2018-11-28 12:13] LABS: EOSINOPHILS # (AUTO) 0.1 10^3/uL (0.0-0.3); LYMPHOCYTES # (AUTO) 0.7 X 10^3 (1.0-4.0); MONOCYTES # (AUTO) 0.6 X 10^3 (0.0-1.0); NEUTROPHILS # (AUTO) 4.8 X 10^3 (1.8-7.8)
[2018-11-28 12:14] LABS: INR 1.1 (0.8-1.4); PROTHROMBIN TIME PATIENT 14.2 SEC (12.2-14.7)
[2018-11-28 12:15] LABS: SODIUM 136 MMOL/L (135-145)
[2018-11-28 12:16] LABS: ALANINE AMINOTRANSFERASE 8 U/L (0-55); ALBUMIN 4.1 GM/DL (3.2-4.5); ALKALINE PHOSPHATASE 62 U/L (40-136); BILIRUBIN,TOTAL 0.5 MG/DL (0.1-1.0); BUN/CREATININE RATIO 13; CALCIUM 8.8 MG/DL (8.5-10.1); CARBON DIOXIDE 11 MMOL/L (21-32); CHLORIDE 102 MMOL/L (98-107); CREATININE SERUM 0.95 MG/DL (0.60-1.30); GFR ESTIMATED > 60; GLUCOSE 112 MG/DL (70-105); MAGNESIUM 1.9 MG/DL (1.8-2.4); TOTAL PROTEIN 6.9 GM/DL (6.4-8.2)
--- NOTE | 2018-11-28 12:30 | NUR ---
Attempted to void in bathroom and returns to room with empty specimen cup reporting unable to go. Dr notified.
[2018-11-28] MEDS ORDERED: GUAI5LIQ PO (13:45)
[2018-11-28 13:51] VITALS: BP 106/51
== END 2018-11-28 13:55 | disposition home or self-care (01) ==
LOC: EDUNIT# 10:52 → ER FS 10:56
DX: R07.81 Pleurodynia (principal); R05 Cough; E03.9 Hypothyroidism, unspecified; Z98.890 Other specified postprocedural states
CPT/HCPCS: 36415; 71045; 80053; 83735; 84484; 84703; 85025; 85379; 85610; 85730; 93005; 93041

== ENCOUNTER 2019-07-09 16:04 | Emergency (ER) | payer SELFPAY ==
[~2019-07-09] VITALS: Ht 159 cm; Wt 79.7 kg
[~2019-07-09 16:04] MED LIST changes: +GUAI5LIQ PO
[2019-07-09] MEDS ORDERED: NS IV 1000 ML 1,000 ML IV SCH (16:30)
[2019-07-09] MEDS ORDERED: ONDANSETRON 4 MG/2 ML (SDV) Z0FRAN IVP ONE (16:30)
--- NOTE | 2019-07-09 16:32 | ED GI ---
General Chief Complaint: Abdominal/GI Problems Stated Complaint: DIARRHEA, STOMACH PAIN Nursing Triage Note: Patient reports nausea/vomiting/diarrhea since Sunday, rates epigastric pain at 9/10. Sepsis Screen: No Definite Risk Source of Information: Patient Exam Limitations: No Limitations History of Present Illness Date Seen by Provider: Jul 09, 2019 Time Seen by Provider: 16:15 Initial Comments The patient is a pleasant obese 24-year-old female who presents for evaluation of nausea, vomiting, diarrhea, generalized abdominal discomfort over the last 3 days. She reports that several people that she lives with have had the same symptoms and none of them had to go the hospital. She states that she has missed a few days of work and will need a note. She states the pain is severe she appears quite comfortable and is planning exam on her cell phone. She says the pain is worst in the epigastric region. She denies hematemesis, rectal bleeding, although pain/bleeding/discharge, chest pain or shortness of breath, fevers or chills, dizziness or syncope. Timing/Duration: 2-3 Days Severity/Quality: Moderate Location: Epigastric Radiation: No Radiation Associated Symptoms: Nausea/Vomiting Allergies and Home Medications Allergies Coded Allergies: egg (Unverified Allergy, Severe, throat swelling, 11/28/18) Home Medications Guaifenesin/Codeine Phosphate 5 Ml Liquid, 5 ML PO Q6H PRN for COUGH Prescribed by: GABRIELA SEALS on 11/28/18 1345 Patient Home Medication List Home Medication List Reviewed: Yes Review of Systems Review of Systems Constitutional: no symptoms reported EENTM: No Symptoms Reported Respiratory: No Symptoms Reported Cardiovascular: No Symptoms Reported Gastrointestinal: Abdominal Pain, Diarrhea, Nausea, Vomiting Genitourinary: No Symptoms Reported Musculoskeletal: no symptoms reported Skin: no symptoms reported Psychiatric/Neurological: No Symptoms Reported Endocrine: No Symptoms Reported Hematologic/Lymphatic: No Symptoms Reported All Other Systems Reviewed Negative Unless Noted: Yes Past Tloikrk-Ilgvlz-Sfnmrf Hx Past Med/Social Hx: Reviewed Nursing Past Med/Soc Hx Patient Social History 2nd Hand Smoke Exposure: Yes Recent Foreign Travel: No Contact w/Someone Who Travel: No Recent Infectious Disease Expo: No Recent Hopitalizations: No Immunizations Up To Date Tetanus Booster (TDap): Unknown PED Vaccines UTD: Yes Seasonal Allergies Seasonal Allergies: No Past Medical History Surgeries: Yes Gallbladder Respiratory: No Cardiac: No Neurological: No Genitourinary: No Gastrointestinal: No Musculoskeletal: No Endocrine: Yes Hypothyroidsim HEENT: No Cancer: No Psychosocial: No Integumentary: No Blood Disorders: No Physical Exam Vital Signs Vital Signs - First Documented 07/09/19 16:19 Temp 36.7 Pulse 99 Resp 18 B/P (MAP) 126/63 (84) Pulse Ox 97 O2 Delivery Room Air Capillary Refill : Less Than 3 Seconds Height/Weight/BMI Height: 5'1.00" Weight: 170lbs. oz. 77.172928sy; 31.00 BMI Method:Stated General Appearance: WD/WN, no apparent distress HEENT: PERRL/EOMI, pharynx normal Neck: non-tender, full range of motion Respiratory: chest non-tender, lungs clear, normal breath sounds, no respiratory distress, no accessory muscle use Cardiovascular: regular rate, rhythm, no edema, no JVD Gastrointestinal: normal bowel sounds, non tender, soft, other (benign abdominal examination, obese, soft, nontender) Extremities: normal range of motion, no pedal edema, no calf tenderness Neurologic/Psychiatric: zoning engineer II-XII nml as tested, no motor/sensory deficits, alert, normal mood/affect, oriented x 3 Skin: normal color Progress/Results/Core Measures Results/Orders Lab Results Laboratory Tests Test 07/09/19 16:30 Range/Units White Blood Count 7.3 4.3-11.0 10^3/uL Red Blood Count 4.68 4.35-5.85 10^6/uL Hemoglobin 13.7 11.5-16.0 G/DL Hematocrit 41 35-52 % Mean Corpuscular Volume 88 80-99 FL Mean Corpuscular Hemoglobin 29 25-34 PG Mean Corpuscular Hemoglobin Concent 33 32-36 G/DL Red Cell Distribution Width 12.4 10.0-14.5 % Platelet Count 269 130-400 10^3/uL Mean Platelet Volume 9.9 7.4-10.4 FL Neutrophils (%) (Auto) 62 42-75 % Lymphocytes (%) (Auto) 28 12-44 % Monocytes (%) (Auto) 8 0-12 % Eosinophils (%) (Auto) 2 0-10 % Basophils (%) (Auto) 0 0-10 % Neutrophils # (Auto) 4.6 1.8-7.8 X 10^3 Lymphocytes # (Auto) 2.0 1.0-4.0 X 10^3 Monocytes # (Auto) 0.6 0.0-1.0 X 10^3 Eosinophils # (Auto) 0.1 0.0-0.3 10^3/uL Basophils # (Auto) 0.0 0.0-0.1 10^3/uL Sodium Level 140 135-145 MMOL/L Potassium Level 4.1 3.6-5.0 MMOL/L Chloride Level 105 98-107 MMOL/L Carbon Dioxide Level 24 21-32 MMOL/L Anion Gap 11 5-14 MMOL/L Blood Urea Nitrogen 15 7-18 MG/DL Creatinine 1.04 0.60-1.30 MG/DL Estimat Glomerular Filtration Rate > 60 BUN/Creatinine Ratio 14 Glucose Level 97 70-105 MG/DL Calcium Level 8.8 8.5-10.1 MG/DL Corrected Calcium 8.8 8.5-10.1 MG/DL Total Bilirubin 0.4 0.1-1.0 MG/DL Aspartate Amino Transf (AST/SGOT) 16 5-34 U/L Alanine Aminotransferase (ALT/SGPT) 17 0-55 U/L Alkaline Phosphatase 67 40-136 U/L Total Protein 7.0 6.4-8.2 GM/DL Albumin 4.0 3.2-4.5 GM/DL Lipase 25 8-78 U/L My Orders Orders - NELI CHRIS DO Ua Culture If Indicated (07/09/19 16:07) Hcg,Qualitative Urine (07/09/19 16:07) Cbc With Automated Diff (07/09/19 16:21) Comprehensive Metabolic Panel (07/09/19 16:21) Ed Iv/Invasive Line Start (07/09/19 16:21) Ns Iv 1000 Ml (Sodium Chloride 0.9%) (07/09/19 16:30) Ondansetron Injection (Zofran Injectio (07/09/19 16:30) Lipase (07/09/19 16:21) Medications Given in ED Current Medications Medications Dose Ordered Sig/Eduardo Route Start Time Stop Time Status Last Admin Dose Admin Ondansetron HCl 4 mg ONCE ONCE IVP 07/09/19 16:30 07/09/19 16:31 DC 07/09/19 16:33 4 MG Vital Signs/I&O 07/09/19 16:19 Temp 36.7 Pulse 99 Resp 18 B/P (MAP) 126/63 (84) Pulse Ox 97 O2 Delivery Room Air Blood Pressure Mean: 84 Progress Progress Note : Progress Note @1733 - Patient updated on lab results which are unremarkable. Advised the p atient to follow up with her PCP in the next 2-3 days and to return to the emergency Department immediately for new or worsening symptoms. She expresses verbal understanding and agreement and is stable for discharge. Departure Impression Primary Impression: Nausea & vomiting Additional Impression: Diarrhea Disposition: 01 HOME, SELF-CARE Condition: Stable Departure-Patient Inst. Referrals: SELFSAMREEN MD (PCP) Primary Care Physician Patient Instructions: Nausea and Vomiting, Adult (DC), Viral Gastroenteritis, Adult (DC) Add. Discharge Instructions: Follow-up with your doctor in the next 1-2 days. Return to the emergency Department immediately for new or worsening symptoms. Take the prescribed medicine as directed, as needed. Scripts Ondansetron (Ondansetron Odt) 4 Mg Tab.rapdis 4 MG PO Q6H PRN for NAUSEA/VOMITING-1ST LINE for 5 Days, #20 TAB Prov: NELI CHRIS DO 07/09/19 NELI CHRIS DO Jul 09, 2019 16:32
[2019-07-09 16:48] LABS: HEMATOCRIT 41 % (35-52); HEMOGLOBIN 13.7 G/DL (11.5-16.0); MEAN CORPUSCULAR HEMOGLOBIN 29 PG (25-34); WHITE BLOOD COUNT 7.3 10^3/uL (4.3-11.0)
[2019-07-09 16:49] LABS: BASOPHILS % (AUTO) 0 % (0-10); EOSINOPHILS # (AUTO) 0.1 10^3/uL (0.0-0.3); EOSINOPHILS % (AUTO) 2 % (0-10); LYMPHOCYTES % (AUTO) 28 % (12-44); MEAN CORPUSCULAR HGB CONC 33 G/DL (32-36); MEAN CORPUSCULAR VOLUME 88 FL (80-99); MEAN PLATELET VOLUME 9.9 FL (7.4-10.4); MONOCYTES # (AUTO) 0.6 X 10^3 (0.0-1.0); MONOCYTES % (AUTO) 8 % (0-12); NEUTROPHILS # (AUTO) 4.6 X 10^3 (1.8-7.8); NEUTROPHILS % (AUTO) 62 % (42-75); PLATELET COUNT 269 10^3/uL (130-400); RED CELL DISTRIBUTION WIDTH 12.4 % (10.0-14.5)
[2019-07-09 17:07] LABS: ALANINE AMINOTRANSFERASE 17 U/L (0-55); ALKALINE PHOSPHATASE 67 U/L (40-136); BILIRUBIN,TOTAL 0.4 MG/DL (0.1-1.0); BUN/CREATININE RATIO 14; CALCIUM 8.8 MG/DL (8.5-10.1); CARBON DIOXIDE 24 MMOL/L (21-32); CHLORIDE 105 MMOL/L (98-107); CREATININE SERUM 1.04 MG/DL (0.60-1.30); GFR ESTIMATED > 60; GLUCOSE 97 MG/DL (70-105); POTASSIUM 4.1 MMOL/L (3.6-5.0); SODIUM 140 MMOL/L (135-145)
[2019-07-09 17:08] LABS: LIPASE 25 U/L (8-78)
[2019-07-09] MEDS ORDERED: ONDA4TAB11 PO (17:35)
[2019-07-09 17:44] VITALS: BP 111/63
== END 2019-07-09 17:47 | disposition home or self-care (01) ==
LOC: EDUNIT# 16:04 → ER FS 16:05
DX: R11.2 Nausea with vomiting, unspecified (principal); R19.7 Diarrhea, unspecified; E03.9 Hypothyroidism, unspecified; Z77.22 Contact with and (suspected) exposure to environmental tobacco smoke (acute) (chronic)
CPT/HCPCS: 36415; 80053; 83690; 85025; 96374

== ENCOUNTER 2019-11-19 07:49 | Emergency (ER) | payer BC, OTHER ==
[~2019-11-19] VITALS: Ht 154.9 cm; Wt 86.0 kg
[2019-11-19] MEDS ORDERED: Levothyroxine (08:02)
[2019-11-19] MEDS ORDERED: CITA20TA9 (08:02)
[2019-11-19] MEDS ORDERED: PANTOPRAZOLE 40 MG (PROTONIX) VIAL IV STA (08:17)
[2019-11-19] MEDS ORDERED: NS IV 1000 ML 1,000 ML IV STA ×2 (08:17→09:34)
[2019-11-19] MEDS ORDERED: ONDANSETRON 4 MG/2 ML (SDV) Z0FRAN IVP STA (08:17)
[2019-11-19] MEDS ORDERED: KETOROLAC 30 MG/ML VIAL IVP STA (08:17)
--- NOTE | 2019-11-19 08:21 | ED Abdominal Pain ---
General Chief Complaint: Abdominal/GI Problems Stated Complaint: VOMITING Nursing Triage Note: Pt ambulatory to ED reporting feeling chilled x 2 days then began vomiting @ 2100 last night. Pt awoke at 0400 with bilat upper quad abd pain. Pt called in ill to work this a.m. Sepsis Screen: No Definite Risk Source of Information: Patient History of Present Illness Date Seen by Provider: Nov 19, 2019 Time Seen by Provider: 07:59 Initial Comments 24-year-old female presenting with complaints of chills 2 days and vomiting since 2099 last night. She reports that she has had abdominal pain all night as well. She has sharp burning pain in the upper abdominal area. She has no diarrhea. She has had 5-6 episodes of vomiting overnight. She denies any pain or burning with urination but states she hasn't urinated since yesterday. She states her last menstrual period was in August but that there is no way she could be right now. 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 They have had similar GI symptoms. Allergies and Home Medications Allergies Coded Allergies: egg (Unverified Allergy, Severe, throat swelling, 11/28/18) Penicillins (Unverified Adverse Reaction, Unknown, 11/19/19) Patient Home Medication List Home Medication List Reviewed: Yes Review of Systems Review of Systems Constitutional: chills; No diaphoresis; dizziness (with changing position), fever (subjective), malaise, weakness (generalized) EENTM: No Blurred Vision, No Ear Drainage, No Ear Pain, No Mouth Pain, No Nose Congestion, No Throat Pain Respiratory: Denies Cough Cardiovascular: Denies Chest Pain Gastrointestinal: See HPI, Abdominal Pain Genitourinary: Denies Burning, Denies Frequency, Denies Pain Musculoskeletal: no symptoms reported Skin: no symptoms reported Psychiatric/Neurological: Headache Past Xfnydog-Htrqsm-Igqcgh Hx Past Med/Social Hx: Reviewed Nursing Past Med/Soc Hx Patient Social History Alcohol Use: Rarely Uses Recreational Drug Use: No Smoking Status: Never a Smoker 2nd Hand Smoke Exposure: Yes Recent Foreign Travel: No Contact w/Someone Who Travel: No Recent Infectious Disease Expo: No Recent Hopitalizations: No Physical Abuse: No Sexual Abuse: No Mistreated: No Fear: No Immunizations Up To Date Tetanus Booster (TDap): Unknown PED Vaccines UTD: Yes Seasonal Allergies Seasonal Allergies: No Past Medical History Surgeries: Yes Adenoidectomy, Gallbladder, Tonsillectomy Respiratory: No Cardiac: No Neurological: No : No (states irregular menses nd LMP 2 mo ago) Genitourinary: No Gastrointestinal: No Musculoskeletal: No Endocrine: Yes Hypothyroidsim HEENT: No Cancer: No Psychosocial: No Integumentary: No Blood Disorders: No Physical Exam Vital Signs Vital Signs - First Documented 11/19/19 07:52 Temp 36.5 Pulse 77 Resp 18 B/P (MAP) 115/69 (84) Pulse Ox 99 O2 Delivery Room Air Capillary Refill : Less Than 3 Seconds Height/Weight/BMI Height: 5'1.00" Weight: 170lbs. oz. 77.648705hj; 35.00 BMI Method:Stated General Appearance: WD/WN, no apparent distress HEENT: PERRL/EOMI, pharynx normal Neck: non-tender, full range of motion, supple, normal inspection Respiratory: chest non-tender, lungs clear, normal breath sounds, no respiratory distress, no accessory muscle use Cardiovascular: normal peripheral pulses, regular rate, rhythm Gastrointestinal: soft, no pulsatile mass, abnormal bowel sounds (hypoactive); No distended, No guarding, No rebound; tenderness (diffuse but worse in upper half of abdomen) Rectal: deferred Extremities: normal range of motion, non-tender, no pedal edema, normal capillary refill Neurologic/Psychiatric: editor book II-XII nml as tested, no motor/sensory deficits, alert, oriented x 3 Skin: normal color, warm/dry Progress/Results/Core Measures Results/Orders Lab Results Laboratory Tests Test 11/19/19 08:25 Range/Units White Blood Count 8.6 4.3-11.0 10^3/uL Red Blood Count 4.63 4.35-5.85 10^6/uL Hemoglobin 13.9 11.5-16.0 G/DL Hematocrit 40 35-52 % Mean Corpuscular Volume 87 80-99 FL Mean Corpuscular Hemoglobin 30 25-34 PG Mean Corpuscular Hemoglobin Concent 35 32-36 G/DL Red Cell Distribution Width 12.4 10.0-14.5 % Platelet Count 306 130-400 10^3/uL Mean Platelet Volume 9.9 7.4-10.4 FL Neutrophils (%) (Auto) 57 42-75 % Lymphocytes (%) (Auto) 34 12-44 % Monocytes (%) (Auto) 6 0-12 % Eosinophils (%) (Auto) 2 0-10 % Basophils (%) (Auto) 1 0-10 % Neutrophils # (Auto) 4.9 1.8-7.8 X 10^3 Lymphocytes # (Auto) 2.9 1.0-4.0 X 10^3 Monocytes # (Auto) 0.5 0.0-1.0 X 10^3 Eosinophils # (Auto) 0.2 0.0-0.3 10^3/uL Basophils # (Auto) 0.1 0.0-0.1 10^3/uL Sodium Level 136 135-145 MMOL/L Potassium Level 4.0 3.6-5.0 MMOL/L Chloride Level 101 98-107 MMOL/L Carbon Dioxide Level 25 21-32 MMOL/L Anion Gap 10 5-14 MMOL/L Blood Urea Nitrogen 14 7-18 MG/DL Creatinine 1.11 0.60-1.30 MG/DL Estimat Glomerular Filtration Rate > 60 BUN/Creatinine Ratio 13 Glucose Level 101 70-105 MG/DL Calcium Level 8.9 8.5-10.1 MG/DL Corrected Calcium 8.7 8.5-10.1 MG/DL Total Bilirubin 0.4 0.1-1.0 MG/DL Aspartate Amino Transf (AST/SGOT) 24 5-34 U/L Alanine Aminotransferase (ALT/SGPT) 29 0-55 U/L Alkaline Phosphatase 76 40-136 U/L Total Protein 7.1 6.4-8.2 GM/DL Albumin 4.3 3.2-4.5 GM/DL Lipase 31 8-78 U/L Serum Test, Qualitative NEGATIVE NEGATIVE Micro Results Microbiology 11/19/19 Influenza Types A,B Antigen (CUAUHTEMOC) - Final, Complete My Orders Orders - JON AWAD MD Comprehensive Metabolic Panel (11/19/19 08:07) Lipase (11/19/19 08:07) Ua Culture If Indicated (11/19/19 08:07) Hcg,Qualitative Serum (11/19/19 08:07) Ed Iv/Invasive Line Start (11/19/19 08:07) Cbc With Automated Diff (11/19/19 08:07) Influenza A And B Antigens (11/19/19 08:17) Ns Iv 1000 Ml (Sodium Chloride 0.9%) (11/19/19 08:17) Ondansetron Injection (Zofran Injectio (11/19/19 08:17) Pantoprazole Injection (Protonix Injecti (11/19/19 08:17) Ketorolac Injection (Toradol Injection) (11/19/19 08:17) Dicyclomine Injection (Bentyl Injection) (11/19/19 09:34) Ns Iv 1000 Ml (Sodium Chloride 0.9%) (11/19/19 09:34) Ct Abdomen/Pelvis W (11/19/19 09:34) Iohexol Injection (Omnipaque 350 Mg/Ml 1 (11/19/19 09:45) Received Contrast (Hold Metformin- Contr (11/19/19 09:45) Sodium Chloride Flush (Catheter Flush Sy (11/19/19 09:45) Ns (Ivpb) (Sodium Chloride 0.9% Ivpb Bag (11/19/19 09:45) Medications Given in ED Current Medications Medications Dose Ordered Sig/Eduardo Route Start Time Stop Time Status Last Admin Dose Admin Iohexol 100 ml ONCE ONCE IV 11/19/19 09:45 11/19/19 09:46 DC 11/19/19 09:54 100 ML Sodium Chloride 10 ml NEEDED PRN IV 11/19/19 09:45 11/19/19 09:54 10 ML Sodium Chloride 100 ml ONCE ONCE IV 11/19/19 09:45 11/19/19 09:46 DC 11/19/19 09:54 100 ML Vital Signs/I&O 11/19/19 11/19/19 07:52 08:45 Temp 36.5 36.5 Pulse 77 Resp 18 B/P (MAP) 115/69 (84) Pulse Ox 99 O2 Delivery Room Air Blood Pressure Mean: 84 Progress Progress Note #1: Progress Note Check basic labs with UA, Lipase and serum HCG. Give IVF for hydration, Protonix for burning upper abdominal pain, Toradol for abdominal pain, Zofran for nausea. Progress Note #2: Time: 09:29 Progress Note CBC, chemistry and flu swab are all negative. She is negative for as well. She has a negative lipase. On recheck of the patient she reports that her symptoms are slightly improved and her nausea is doing better. She still has not been able to urinate. She continues to complain of pain. Will add on Bentyl for nausea and pain. Repeat normal saline bolus for hydration. Add on CT scan of abdomen and pelvis with IV contrast to look for other pathology that might be contributing to her pain. Advised that this may be a virus causing irritation to her gastrointestinal tract. Will see how she responds to the additional treatment and see what the CT scan shows. Progress Note #3: Time: 10:[address] scan does not show any acute significant abdominal or pelvic pathology to account for her pain and symptoms. She does have urine in her bladder. Will plan on discharging patient with meds for nausea and abdominal pain. Have her follow a liquid diet for 24-48 hours and then advance as tolerated. Check with pcp for continued symptoms. Diagnostic Imaging Diagonstic Imaging: CT Plain Films/CT/US/NM/MRI: abdomen, pelvis Comments NAME: CELINE QUARLES [facility] REC#: [id number] PT STATUS: REG ER : 1995 PHYSICIAN: JON AWAD MD ADMIT DATE: 11/19/19/ER FS Draft Date of Exam:11/19/19 CT ABDOMEN/PELVIS W CT ABDOMEN/PELVIS W TECHNIQUE: Multiple contiguous axial images were obtained through the abdomen and pelvis after administration of intravenous contrast. All CT scans use one or more of the following dose optimizing techniques: automated exposure control, MA and/or KvP adjustment based on a patient size and exam type, or iterative reconstruction. INDICATION: Nausea, vomiting and upper abdominal pain. COMPARISON: None available. FINDINGS: Lower chest: The lung bases are clear. No pericardial or pleural effusion. Peritoneum: No free intraperitoneal air or fluid. Liver and biliary system: The liver is normal. Cholecystectomy. No biliary duct dilatation. Spleen and Pancreas: Spleen is normal. The pancreas enhances normally without mass lesion or peripancreatic inflammatory changes. Adrenals: Normal. tract: The kidneys enhance normally without suspicious mass or obstruction. Urinary bladder is distended without wall thickening. Uterus and ovaries are normal in appearance. GI tract: Stomach is decompressed. No bowel obstruction. No pericolonic inflammatory changes. Normal appendix. A small volume of stool is present throughout the colon, likely physiologic. Vasculature and Lymph nodes: Normal caliber aorta. No abdominal or pelvic lymphadenopathy. Musculoskeletal: No concerning osseous lesion. IMPRESSION: 1. No acute obstructive or inflammatory process in abdomen or pelvis. Dictated on workstation # [id number] Dict: 11/19/19 1004 Trans: 11/19/19 1016 [facility] [id number] Interpreted by: TEETEE ADAIR MD Electronically signed by: Departure Impression Primary Impression: Diffuse abdominal pain Additional Impressions: Nausea and vomiting Qualified Codes: R11.14 - Bilious vomiting Dehydration Disposition: 01 HOME, SELF-CARE Condition: Improved Departure-Patient Inst. Decision time for Depature: 10:33 Referrals: SELFSAMREEN MD (PCP/Family) Primary Care Physician Patient Instructions: Acute Abdomen (Belly Pain), Adult (DC), Nausea and Vomiting, Adult (DC), Dehydration, Adult (DC) Add. Discharge Instructions: Stay well hydrated and drink plenty of fluids. Keep sipping on fluids to stay hydrated and follow a liquid diet for the next 24-48 hours then slowly advance to a bland and then regular diet as you tolerate it. Use the medicine for nausea and abdominal pain to help with your symptoms. Check back with clinic for continued symptoms and return if you have worsening symptoms All discharge instructions reviewed with patient and/or family. Voiced understanding. Scripts Dicyclomine HCl (Dicyclomine HCl) 20 Mg Tablet 20 MG PO Q6H PRN for abdominal pain for 5 Days, #20 TAB 0 Refills Prov: JON AWAD MD 11/19/19 Ondansetron (Ondansetron Odt) 4 Mg Tab.rapdis 4 MG PO Q6H PRN for NAUSEA/VOMITING for 2 Days, #8 TAB 0 Refills Prov: JON AWAD MD 11/19/19 Work/School Note: Work Release Form Date Seen in the Emergency Department: Nov 19, 2019 Return to Work: Nov 21, 2019 Restrictions: No Restrictions JON AWAD MD Nov 19, 2019 08:21
[2019-11-19 09:01] LABS: BASOPHILS % (AUTO) 1 % (0-10); EOSINOPHILS % (AUTO) 2 % (0-10); HEMATOCRIT 40 % (35-52); HEMOGLOBIN 13.9 G/DL (11.5-16.0); LYMPHOCYTES % (AUTO) 34 % (12-44); MEAN CORPUSCULAR HEMOGLOBIN 30 PG (25-34); MEAN CORPUSCULAR HGB CONC 35 G/DL (32-36); MEAN CORPUSCULAR VOLUME 87 FL (80-99); MEAN PLATELET VOLUME 9.9 FL (7.4-10.4); MONOCYTES % (AUTO) 6 % (0-12); NEUTROPHILS % (AUTO) 57 % (42-75); PLATELET COUNT 306 10^3/uL (130-400); RED CELL DISTRIBUTION WIDTH 12.4 % (10.0-14.5); WHITE BLOOD COUNT 8.6 10^3/uL (4.3-11.0)
[2019-11-19 09:02] LABS: BASOPHILS # (AUTO) 0.1 10^3/uL (0.0-0.1); EOSINOPHILS # (AUTO) 0.2 10^3/uL (0.0-0.3); LYMPHOCYTES # (AUTO) 2.9 X 10^3 (1.0-4.0); MONOCYTES # (AUTO) 0.5 X 10^3 (0.0-1.0); NEUTROPHILS # (AUTO) 4.9 X 10^3 (1.8-7.8)
[2019-11-19 09:21] LABS: CHLORIDE 101 MMOL/L (98-107); SODIUM 136 MMOL/L (135-145)
[2019-11-19 09:22] LABS: ALANINE AMINOTRANSFERASE 29 U/L (0-55); ALBUMIN 4.3 GM/DL (3.2-4.5); ALKALINE PHOSPHATASE 76 U/L (40-136); BILIRUBIN,TOTAL 0.4 MG/DL (0.1-1.0); BUN/CREATININE RATIO 13; CALCIUM 8.9 MG/DL (8.5-10.1); CARBON DIOXIDE 25 MMOL/L (21-32); CREATININE SERUM 1.11 MG/DL (0.60-1.30); GFR ESTIMATED > 60; GLUCOSE 101 MG/DL (70-105); LIPASE 31 U/L (8-78); TOTAL PROTEIN 7.1 GM/DL (6.4-8.2)
--- NOTE | 2019-11-19 09:30 | NUR ---
PT REPORTS PAIN IS STILL PRESENT IN UPPER ABD BUT IS LIKE "5-6" NOT "8-9". DR AWAD IN TO RE-EVAL PT.
[2019-11-19] MEDS ORDERED: DICYCLOMINE 10 MG/ML (BENTYL) 2 ML AMP IM STA (09:34)
[2019-11-19] MEDS ORDERED: CATHETER FLUSH 10 ML SYR IV PRN (09:45)
[2019-11-19] MEDS ORDERED: NS 100 ML (IVPB) BAG IV ONE (09:45)
[2019-11-19] MEDS ORDERED: IOHEXOL 350 MG/ML 100 ML (OMNIPAQUE 350) VIAL IV ONE (09:45)
[2019-11-19] MEDS ORDERED: HOLD METFORMIN - RECEIVED CONTRAST 20 ML VIAL IV SCH (09:45)
--- NOTE | 2019-11-19 09:50 | NUR ---
STARTING IV BOLUS #2. PT STATES CANNOT URINATE YET. PT HAS BEEN IN BATHROOM TWICE INCLUDING FLUSHING TOILETS EACH TIME.
--- NOTE | 2019-11-19 10:16 | Diagnostic Imaging Report ---
CT ABDOMEN/PELVIS W TECHNIQUE: Multiple contiguous axial images were obtained through the abdomen and pelvis after administration of intravenous contrast. All CT scans use one or more of the following dose optimizing techniques: automated exposure control, MA and/or KvP adjustment based on a patient size and exam type, or iterative reconstruction. INDICATION: Nausea, vomiting and upper abdominal pain. COMPARISON: None available. FINDINGS: Lower chest: The lung bases are clear. No pericardial or pleural effusion. Peritoneum: No free intraperitoneal air or fluid. Liver and biliary system: The liver is normal. Cholecystectomy. No biliary duct dilatation. Spleen and Pancreas: Spleen is normal. The pancreas enhances normally without mass lesion or peripancreatic inflammatory changes. Adrenals: Normal. tract: The kidneys enhance normally without suspicious mass or obstruction. Urinary bladder is distended without wall thickening. Uterus and ovaries are normal in appearance. GI tract: Stomach is decompressed. No bowel obstruction. No pericolonic inflammatory changes. Normal appendix. A small volume of stool is present throughout the colon, likely physiologic. Vasculature and Lymph nodes: Normal caliber aorta. No abdominal or pelvic lymphadenopathy. Musculoskeletal: No concerning osseous lesion. IMPRESSION: 1. No acute obstructive or inflammatory process in abdomen or pelvis. Dictated by: Dictated on workstation # [id number]
[2019-11-19] MEDS ORDERED: ONDA4TAB11 PO (10:34)
[2019-11-19] MEDS ORDERED: DICY20TA10 PO (10:34)
[2019-11-19 10:43] VITALS: BP 97/61
--- NOTE | 2019-11-19 10:43 | NUR ---
PT DISCHARGED AT THIS TIME AFTER REVIEW OF HOME INSTRUCTIONS VERBALIZED UNDERSTOOD. SCRIPTS SENT TO [facility]. PT STATES SHE DOES NOT NEED TO URINATE BUT URINE IS NOTED IN BLADDER ON CT. DR STATES IT IS OK TO RELEASE PATIENT WITHOUT FURTHER DELAY AWAITING PT TO GIVE URINE SAMPLE.
--- OUTSIDE RECORDS SUMMARY | 2019-11-24 05:38 | XMS REPORT ---
Author Author Shannon KING [facility] Address [address] [place] [address] Care Team Providers Care Ambulance Mechanic Name Role Phone SAMREEN KING Unavailable PROBLEMS Type Condition ICD9-CM Code BYX24-YB Code Onset Dates Condition S tatus SNOMED Code Problem Hyperinsulinemia E16.1 Active 834 77137 Problem Seasonal allergic rhinitis due to pollen J30.1 Active 04689096 Problem Hypothyroidism (acquired) E03.9 Acti ve 13862474 Problem Acquired hypothyroidism E03.9 Active 037151390 Problem Amenorrhea N91.2 Active 59382242 Problem Family history of diabetes mellitus Z83.3 Active 837467577 Problem Gastroesophageal reflux disease, esophagitis pre sence not specified K21.9 Active 261897796 Problem Obesity E66.9 Active 439701812 ALLERGIES No Known Allergies ENCOUNTERS Encounter Location Date Diagnosis [place] [facility] [address] [place] [address] Aug, Hypothyroidism (acquired) E0 3.9 ; Acute non-recurrent maxillary sinusitis J01.00 and Dizziness R42 [place] [address] [address] Jun, Encounter for fertility plan tootie Z31.89 [place] [address] [address] [address] May, Vertigo R42 ; Acquired hypot hyroidism E03.9 and Acute bilateral low back pain without sciatica M54.5 [place] [address] [place] [address] May, Acquired hypothyroidism E03. 9 and Acute bilateral low back pain without sciatica M54.5 [place] [address] [address] [place] [address] Feb, RUQ abdominal pain R10.11 an d Nausea and vomiting, intractability of vomiting not specified, unspecified vomiting type R11.2 [place] [address] [place] [address] Feb, Acute midline low back pain without sciatica M54.5 [place] [address] [place] [address] Feb, Drug screening, pre-employme nt Z02.1 [place] [address] [place] [address] January, Poison cate L23.7 [place] [address] [place] [address] Nov, Acquired hypothyroidism E03. 9 [place] [address] [place] [address] Nov, [place] [address] [place] [address] Nov, Acute URI J06.[address] [place] [address] Nov, Right upper quadrant abdomin al pain R10.11 and Gastroesophageal reflux disease, esophagitis presence not specified K21.9 [place] [address] [place] [id number] [place] [address] Oct, [address] [place] [address] Oct, Epigastric pain R10.13 ; Yrn ious vomiting without nausea R11.14 and Acquired hypothyroidism E03.9 [facility] [address] [address] Aug, [facility] [address] [address] Aug, [facility] [address] [address] Aug, [place] [address] [address] Aug, [facility] [address] [address] May, Hiatal hernia K44.9 ; Gastritis without bleeding, unspecified chronicity, unspecified gastritis type K29.70 and Acquired hypothyroidism E03.9 [facility] [address] [address] Mar, [facility] [address] [address] Mar, [place] [address] [address] Mar, [facility] [address] [address] Mar, [place] [address] [address] Mar, Peptic ulcer K27.9 [place] [address] [address] Feb, Acute pain of right shoulder M25.511 [place] [address] [address] Feb, [place] [address] [address] Feb, [place] [address] [address] Feb, Peptic ulcer K27.9 and Left upper quadra nt pain R10.12 [place] [address] [address] January, [place] [address] [address] January, Seasonal allergic rhinitis, unspecified trigger J30.2 [place] [address] [address] Dec, Acquired hypothyroidism E03.9 [place] [address] [address] Dec, [place] [address] [address] Dec, [place] [address] [address] Dec, [place] [address] [address] Nov, [place] [address] [address] Nov, GERD without esophagitis K21.[address] [address] Nov, GERD without esophagitis K21.9 ; Pleurit ic chest pain R07.81 and Chest pain, unspecified type R07.9 [place] [address] [address] Mar, Otalgia of both ears H92.03 and Sensatio n of fullness in both ears H93.8X3 [place] [address] [address] Nov, Amenorrhea N91.2 ; Hyperinsulinemia E16. 1 and Obesity (BMI 30.0-34.9) E66.9 [place] [address] [address] Nov, Amenorrhea N91.2 [place] [address] [address] Oct, Amenorrhea N91.2 [place] [address] [address] Oct, Encounter to establish care Z76.89 ; Fam vineet history of diabetes mellitus Z83.3 ; Acquired hypothyroidism E03.9 ; Amenorrhea N91.2 ; Seasonal allergic rhinitis due to pollen J30.1 and Obesity (BMI 30.0-34.9) E66.9 [place] [address] [facility] [id number] [place] [address] Oct, [facility] [address] [facility] [id number] [place] [address] Sep, Seasonal allergic rhinitis due to pollen J30.1 IMMUNIZATIONS No Known Immunizations SOCIAL HISTORY Never Assessed REASON FOR VISIT PLAN OF CARE VITAL SIGNS MEDICATIONS Medication Instructions Dosage Frequency Start Date End Date Duration S tatus Levothyroxine Sodium 88 MCG Orally Once a day 1 tablet on an empty stomach in the morning 24h 30 days Active Ondansetron 4 MG Orally every 4 hrs 1 tablet on the tong ue and allow to dissolve as needed 4h Oct, 3 days Active RESULTS No Results PROCEDURES No Known procedures INSTRUCTIONS MEDICATIONS ADMINISTERED No Known Medications MEDICAL (GENERAL) HISTORY Type Description Date Medical History Seasonal allergic rhinitis due to pollen Medical History Gastric ulcer Medical History Hypothyroidism (acquired) Medical History Obesity Medical History Hyperinsulinemia Medical History Peptic ulcer Medical History Gastroesophageal reflux dise ase, esophagitis presence not specified Surgical History cholecystectomy 08/2016 Surgical History Left eye surgery as infant Surgical History tonsillectomy Hospitalization History Surgery(s) only
--- OUTSIDE RECORDS SUMMARY | 2019-11-24 05:39 | XMS REPORT | Continuity of Care Document ---
Author Organization Unknown Address Unknown Phone Unavailable Allergies Active Description Code Type Severity Reaction Onset Reported/Identified Relationship to Patient Clinical Status Yes NO KNOWN DRUG ALLERGIES UNKNOWN NO KNOWN DRUG ALLERG Yes NO KNOWN DRUG ALLERGIES UNKNOWN UNKNOWN Yes No Known Drug Allergies [id number] Drug Allergy Unknown N/A 02/19/2018 Yes egg [id number] Drug Allergy Severe throat swelling 11/28/2018 Yes Penicillins [id number] Drug Aller gy Unknown N/A 11/19/2019 Medications Medication Packaging Start Date St op Date Route Dosage Sig KETOROLAC VIAL INJ 60 MG/2CC (TORADOL VIAL ) MG 09/16/2018 09/16/2018 [id number] Problems Date Dx Coded Attending Type Code Diagnosis Diagnosed By 02/20/2018 ROBERT RUFF MD Ot A08. 4 VIRAL INTESTINAL INFECTION, UNSPECIFIED 02/20/2018 ROBERT RUFF MD Ot E03. 9 HYPOTHYROIDISM, UNSPECIFIED 02/20/2018 ROBERT RUFF MD Ot R11. 2 NAUSEA WITH VOMITING, UNSPECIFIED 02/20/2018 ROBERT RUFF MD Ot Z98.890 OTHER SPECIFIED POSTPROCEDURAL STATES 02/21/2018 ROBERT RUFF MD Ot A08. 4 VIRAL INTESTINAL INFECTION, UNSPECIFIED 02/21/2018 ROBERT RUFF MD Ot E03. 9 HYPOTHYROIDISM, UNSPECIFIED 02/21/2018 ROBERT RUFF MD Ot R11. 2 NAUSEA WITH VOMITING, UNSPECIFIED 02/21/2018 ROBERT RUFF MD Ot Z98.890 OTHER SPECIFIED POSTPROCEDURAL STATES 02/25/2018 ROBERT RUFF MD Ot A08. 4 VIRAL INTESTINAL INFECTION, UNSPECIFIED 02/25/2018 ROBERT RUFF MD Ot E03. 9 HYPOTHYROIDISM, UNSPECIFIED 02/25/2018 ROBERT RUFF MD Ot R11. 2 NAUSEA WITH VOMITING, UNSPECIFIED 02/25/2018 ROBERT RUFF MD Ot Z98.890 OTHER SPECIFIED POSTPROCEDURAL STATES 09/16/2018 Edy Andrea W 724.2 LUMBAGO 09/16/2018 EmreEdy W 789.07 ABDOMINAL PAIN, GENERALIZED 09/16/2018 Emre Edy Jose M54.5 LOW BACK PAIN 09/16/2018 Edy Andrea W R10.84 GENERALIZED ABDOMINAL PAIN 11/28/2018 ARNEL DILLON, GABRIELA Johnson Ot E03 .9 HYPOTHYROIDISM, UNSPECIFIED 11/28/2018 ARNEL DILLON, GABRIELA Johnson Ot R05 COUGH 11/28/2018 ARNEL DILLON, GABRIELA Johnson Ot R07.81 PLEURODYNIA 11/28/2018 ARNEL DILLON, GABRIELA Johnson Ot Z98.890 OTHER SPECIFIED POSTPROCEDURAL STATES 07/09/2019 ARIES QUINTEROS DO Ot E03. 9 HYPOTHYROIDISM, UNSPECIFIED 07/09/2019 ARIES QUINTEROS DO Ot R11. 2 NAUSEA WITH VOMITING, UNSPECIFIED 07/09/2019 ARIES QUINTEROS DO Ot R19. 7 DIARRHEA, UNSPECIFIED 07/09/2019 ARIES QUINTEROS DO Ot Z77. 22 CNTCT W AND EXPSR TO ENVIRON TOBACCO SMO 10/08/2019 Edy Andrea W 466.0 ACUTE BRONCHITIS 10/08/2019 Emre Edy Jose J20.0 ACUTE BRONCHITIS DUE TO MYCOPLASMA PNEUMONIAE 10/08/2019 Emre Edy Jose M54.5 LOW BACK PAIN 10/08/2019 Emre Edy Jose R10.84 GENERALIZED ABDOMINAL PAIN Procedures There is no data. Results Test Result Range Complete blood count (CBC) with automate d white blood cell (WBC) differential - 02/19/18 22:28 Blood leukocytes automated count (number/volume) 7.3 10*3/uL 4.3-11.0 Blood erythrocytes automated count (number/volume) 4.58 10*6/uL 4.35-5.85 Venous blood hemoglobin measurement (mass/volume) 13.4 g/dL 11.5-16.0 Blood hematocrit (volume fraction) 39 % 35-52 Automated erythrocyte mean corpuscular volume 84 [ foz_us] 80-99 Automated erythrocyte mean corpuscular h emoglobin (mass per erythrocyte) 29 pg 25-34 Automated erythrocyte mean corpuscular h emoglobin concentration measurement (mass/volume) 35 g/dL 32-36 Automated erythrocyte distribution width ratio 12. 4 % 10.0- 14.5 Automated blood platelet count (count/volume) 275 10*3/uL 130-400 Automated blood platelet mean volume measurement 9.3 [foz_us] 7.4-10.4 Automated blood neutrophils/100 leukocytes 43 % 42-75 Automated blood lymphocytes/100 leukocytes 49 % 12-44 Blood monocytes/100 leukocytes 7 % 0-12 Automated blood eosinophils/100 leukocytes 1 % 0-10 Automated blood basophils/100 leukocytes 0 % 0-10 Blood neutrophils automated count (number/volume) 3.1 10*3 1.8-7.8 Blood lymphocytes automated count (number/volume) 3.6 10*3 1.0-4.0 Blood monocytes automated count (number/volume) 0. 2 10*3 0.0-1.0 Automated eosinophil count 0.1 10*3/uL 0 .0-0.3 Automated blood basophil count (count/volume) 0.0 10*3/uL 0.0-0.1 Comprehensive metabolic panel - 02/19/18 22:28 Serum or plasma sodium measurement (moles/volume) 143 mmol/L 135-145 Serum or plasma potassium measurement (moles/volume) 4.1 mmol/L 3.6-5.0 Serum or plasma chloride measurement (moles/volume) 111 mmol/L 98-107 Carbon dioxide 22 mmol/L 21-32 Serum or plasma anion gap determination (moles/volume) 10 mmol/L 5-14 Serum or plasma urea nitrogen measurement (mass/volume ) 15 mg/dL 7-18 Serum or plasma creatinine measurement (mass/volume) 1.12 mg/dL 0.60-1.30 Serum or plasma urea nitrogen/creatinine mass ratio 13 NRG Serum or plasma creatinine measurement w ith calculation of estimated glomerular filtration rate > NRG Serum or plasma glucose measurement (mass/volume) 98 mg/dL 70-105 Serum or plasma calcium measurement (mass/volume) 9.6 mg/dL 8.5-10.1 Serum or plasma total bilirubin measurement (mass/volu me) 0.4 mg/dL 0.1-1.0 Serum or plasma alkaline phosphatase scooter surement (enzymatic activity/volume) 65 U/L 40-136 Serum or plasma aspartate aminotransfera se measurement (enzymatic activity/volume) 14 U/L 5-34 Serum or plasma alanine aminotransferase measurement (enzymatic activity/volume) 12 U/L 0-55 Serum or plasma protein measurement (mass/volume) 7.2 g/dL 6.4-8.2 Serum or plasma albumin measurement (mass/volume) 4.3 g/dL 3.2-4.5 Lipase - 02/19/18 22:28 Lipase 34 U/L 8-78 Urine beta human chorionic gonadotropin (hCG) measurement - 02/19/18 23:08 Urine beta human chorionic gonadotropin (hCG) measurem ent NEGATIVE NEGATIVE Complete urinalysis with reflex to cultu re - 02/19/18 23:08 Urine color determination YELLOW NRG Urine clarity determination SLIGHTLY CLOUDY NRG Urine pH measurement by test strip 7 5-9 Specific gravity of urine by test strip 1.015 1.016-1.022 Urine protein assay by test strip, semi-quantitative 1+ NEGATIVE Urine glucose detection by automated test strip NE GATIVE NEGATIVE Erythrocytes detection in urine sediment by light micr oscopy NEGATIVE NEGATIVE Urine ketones detection by automated test strip NE GATIVE NEGATIVE Urine nitrite detection by test strip NEGATIVE NEGATIVE Urine total bilirubin detection by test strip NEGA TIVE NEGATIVE Urine urobilinogen measurement by automated test strip (mass/volume) NORMAL NORMAL Urine leukocyte esterase detection by dipstick NEG ATIVE NEGATIVE Automated urine sediment erythrocyte cou nt by microscopy (number/high power field) NONE NRG Automated urine sediment leukocyte count by microscopy (number/high power field) [HPF] NRG Bacteria detection in urine sediment by light microsco py LARGE NRG Squamous epithelial cells detection in u rine sediment by light microscopy 10-25 NRG Crystals detection in urine sediment by light microsco py PRESENT NRG Casts detection in urine sediment by light microscopy NONE NRG Mucus detection in urine sediment by light microscopy NEGATIVE NRG Complete urinalysis with reflex to culture NO NRG Amorphous sediment detection in urine sediment by ligh t microscopy LARGE SLIM PHOSPHATE NRG Urine drug screening test - 02/19/18 23: 08 Urine phencyclidine detection by screening method NEGATIVE NEGATIVE Urine benzodiazepines detection by screening method NEGATIVE NEGATIVE Urine cocaine detection NEGATIVE NEGATI VE Urine amphetamines detection by screening method N EGATIVE NEGATIVE Urine methamphetamine detection by screening method NEGATIVE NEGATIVE Urine cannabinoids detection by screening method N EGATIVE NEGATIVE Urine opiates detection by screening method NEGATI VE NEGATIVE Urine barbiturates detection NEGATIVE N EGATIVE Screening urine tricyclic antidepressants detection NEGATIVE NEGATIVE Urine methadone detection by screening method NEGA TIVE NEGATIVE Urine oxycodone detection NEGATIVE NEGA TIVE Urine propoxyphene detection NEGATIVE N EGATIVE Sed Rate - 09/16/18 12:28 Sed Rate 2 mm/hr 9-15 Urinalysis - 09/16/18 13:18 Icotest N/A Negative Urine Volume Urine Volume Sufficient (10mL) Urine-Appearance Clear Clear Urine-Bacteria Trace Urine-Bilirubin Negative Negative Urine-Blood Negative Negative Urine-Color Yellow Colorless-Lt. Chambers ow Urine-Epithelial Cells 5-10/HPF Urine-Glucose Negative Negative Urine-Ketones Negative Negative Urine-Leukocytes Negative Negative Urine-Nitrite Negative Negative Urine-Other Urine Saved if Culture Need ed (48hrs from time of collection) Urine-pH 7.0 5-8.5 Urine-Protein Negative Negative Urine-RBC Negative Urine-Specific Egan 1.025 1.000-1 .030 Urine-WBC Rare/HPF Urobilinogen 0.2 E.U./dL 0.2-1.0 Complete blood count (CBC) with automate d white blood cell (WBC) differential - 11/28/18 11:25 Blood leukocytes automated count (number/volume) 6.2 10*3/uL 4.3-11.0 Blood erythrocytes automated count (number/volume) 4.59 10*6/uL 4.35-5.85 Venous blood hemoglobin measurement (mass/volume) 13.6 g/dL 11.5-16.0 Blood hematocrit (volume fraction) 40 % 35-52 Automated erythrocyte mean corpuscular volume 88 [ foz_us] 80-99 Automated erythrocyte mean corpuscular h emoglobin (mass per erythrocyte) 30 pg 25-34 Automated erythrocyte mean corpuscular h emoglobin concentration measurement (mass/volume) 34 g/dL 32-36 Automated erythrocyte distribution width ratio 12. 7 % 10.0- 14.5 Automated blood platelet count (count/volume) 233 10*3/uL 130-400 Automated blood platelet mean volume measurement 9.9 [foz_us] 7.4-10.4 Automated blood neutrophils/100 leukocytes 78 % 42-75 Automated blood lymphocytes/100 leukocytes 12 % 12-44 Blood monocytes/100 leukocytes 9 % 0-12 Automated blood eosinophils/100 leukocytes 1 % 0-10 Automated blood basophils/100 leukocytes 0 % 0-10 Blood neutrophils automated count (number/volume) 4.8 10*3 1.8-7.8 Blood lymphocytes automated count (number/volume) 0.7 10*3 1.0-4.0 Blood monocytes automated count (number/volume) 0. 6 10*3 0.0-1.0 Automated eosinophil count 0.1 10*3/uL 0 .0-0.3 Automated blood basophil count (count/volume) 0.0 10*3/uL 0.0-0.1 PT panel in platelet poor plasma by coag ulation assay - 11/28/18 11:25 Prothrombin time (PT) in platelet poor plasma by coagu lation assay 14.2 s 12.2-14.7 INR in platelet poor plasma or blood by coagulation as say 1.1 0.8-1.4 Activated partial thromboplastin time (a PTT) in platelet poor plasma bycoagulation assay - 11/28/18 11:25 Activated partial thromboplastin time (a PTT) in platelet poor plasma bycoagulation assay 38 s 24-35 Serum or plasma choriogonadotropin (preg alexander test) detection - 11/28/18 11:25 Serum or plasma choriogonadotropin ( test) de tection NEGATIVE NEGATIVE Comprehensive metabolic panel - 11/28/18 11:25 Serum or plasma sodium measurement (moles/volume) 136 mmol/L 135-145 Serum or plasma potassium measurement (moles/volume) 4.0 mmol/L 3.6-5.0 Serum or plasma chloride measurement (moles/volume) 102 mmol/L 98-107 Carbon dioxide 11 mmol/L 21-32 Serum or plasma anion gap determination (moles/volume) 23 mmol/L 5-14 Serum or plasma urea nitrogen measurement (mass/volume ) 12 mg/dL 7-18 Serum or plasma creatinine measurement (mass/volume) 0.95 mg/dL 0.60-1.30 Serum or plasma urea nitrogen/creatinine mass ratio 13 NRG Serum or plasma creatinine measurement w ith calculation of estimated glomerular filtration rate > NRG Serum or plasma glucose measurement (mass/volume) 112 mg/dL 70-105 Serum or plasma calcium measurement (mass/volume) 8.8 mg/dL 8.5-10.1 Serum or plasma total bilirubin measurement (mass/volu me) 0.5 mg/dL 0.1-1.0 Serum or plasma alkaline phosphatase scooter surement (enzymatic activity/volume) 62 U/L 40-136 Serum or plasma aspartate aminotransfera se measurement (enzymatic activity/volume) 11 U/L 5-34 Serum or plasma alanine aminotransferase measurement (enzymatic activity/volume) 8 U/L 0-55 Serum or plasma protein measurement (mass/volume) 6.9 g/dL 6.4-8.2 Serum or plasma albumin measurement (mass/volume) 4.1 g/dL 3.2-4.5 CALCIUM CORRECTED 8.7 mg/dL 8.5-10.1 Magnesium - 11/28/18 11:25 Magnesium 1.9 mg/dL 1.8-2.4 TROPONIN T - 11/28/18 11:25 TROPONIN T 6 % <=10 TSH - 12/12/18 15:14 TSH 2.60 mIU/L NRG TSH w/ FREE T4 - 06/10/19 17:22 TSH 4.08 mIU/L NRG T4, FREE 1.0 ng/dL 0.8-1.8 CMP - 06/10/19 17:22 GLUCOSE 76 mg/dL 65-99 UREA NITROGEN (BUN) 16 mg/dL 7-25 CREATININE 1.04 mg/dL 0.50-1.10 eGFR NON-AFR. PERUVIAN 76 mL/min/1.73m2 > OR = 60 eGFR 88 mL/min/1.73m2 > OR = 60 BUN/CREATININE RATIO NOT APPLICABLE (calc) 6-22 SODIUM 139 mmol/L 135-146 POTASSIUM 4.6 mmol/L 3.5-5.3 CHLORIDE 104 mmol/L 98-110 CARBON DIOXIDE 28 mmol/L 20-32 CALCIUM 9.4 mg/dL 8.6-10.2 PROTEIN, TOTAL 6.7 g/dL 6.1-8.1 ALBUMIN 4.2 g/dL 3.6-5.1 GLOBULIN 2.5 g/dL (calc) 1.9-3.7 ALBUMIN/GLOBULIN RATIO 1.7 (calc) 1.0-2. 5 BILIRUBIN, TOTAL 0.6 mg/dL 0.2-1.2 ALKALINE PHOSPHATASE 61 U/L 33-115 AST 17 U/L 10-30 ALT 16 U/L 6-29 CBC - 06/10/19 17:22 WHITE BLOOD CELL COUNT 6.9 Thousand/uL 3 .8-10.8 RED BLOOD CELL COUNT 4.70 Million/uL 3.8 0-5.10 HEMOGLOBIN 14.0 g/dL 11.7-15.5 HEMATOCRIT 40.9 % 35.0-45.0 MCV 87.0 fL 80.0-100.0 MCH 29.8 pg 27.0-33.0 MCHC 34.2 g/dL 32.0-36.0 RDW 12.2 % 11.0-15.0 PLATELET COUNT 310 Thousand/uL 140-400 MPV 10.4 fL 7.5-12.5 ABSOLUTE NEUTROPHILS 3623 cells/uL 1500- 7800 ABSOLUTE LYMPHOCYTES 2732 cells/uL 850-3 900 ABSOLUTE MONOCYTES 421 cells/uL 200-950 ABSOLUTE EOSINOPHILS 83 cells/uL 15-500 ABSOLUTE BASOPHILS 41 cells/uL 0-200 NEUTROPHILS 52.5 % NRG LYMPHOCYTES 39.6 % NRG MONOCYTES 6.1 % NRG EOSINOPHILS 1.2 % NRG BASOPHILS 0.6 % NRG Complete blood count (CBC) with automate d white blood cell (WBC) differential - 07/09/19 16:30 Blood leukocytes automated count (number/volume) 7.3 10*3/uL 4.3-11.0 Blood erythrocytes automated count (number/volume) 4.68 10*6/uL 4.35-5.85 Venous blood hemoglobin measurement (mass/volume) 13.7 g/dL 11.5-16.0 Blood hematocrit (volume fraction) 41 % 35-52 Automated erythrocyte mean corpuscular volume 88 [ foz_us] 80-99 Automated erythrocyte mean corpuscular h emoglobin (mass per erythrocyte) 29 pg 25-34 Automated erythrocyte mean corpuscular h emoglobin concentration measurement (mass/volume) 33 g/dL 32-36 Automated erythrocyte distribution width ratio 12. 4 % 10.0- 14.5 Automated blood platelet count (count/volume) 269 10*3/uL 130-400 Automated blood platelet mean volume measurement 9.9 [foz_us] 7.4-10.4 Automated blood neutrophils/100 leukocytes 62 % 42-75 Automated blood lymphocytes/100 leukocytes 28 % 12-44 Blood monocytes/100 leukocytes 8 % 0-12 Automated blood eosinophils/100 leukocytes 2 % 0-10 Automated blood basophils/100 leukocytes 0 % 0-10 Blood neutrophils automated count (number/volume) 4.6 10*3 1.8-7.8 Blood lymphocytes automated count (number/volume) 2.0 10*3 1.0-4.0 Blood monocytes automated count (number/volume) 0. 6 10*3 0.0-1.0 Automated eosinophil count 0.1 10*3/uL 0 .0-0.3 Automated blood basophil count (count/volume) 0.0 10*3/uL 0.0-0.1 Comprehensive metabolic panel - 07/09/19 16:30 Serum or plasma sodium measurement (moles/volume) 140 mmol/L 135-145 Serum or plasma potassium measurement (moles/volume) 4.1 mmol/L 3.6-5.0 Serum or plasma chloride measurement (moles/volume) 105 mmol/L 98-107 Carbon dioxide 24 mmol/L 21-32 Serum or plasma anion gap determination (moles/volume) 11 mmol/L 5-14 Serum or plasma urea nitrogen measurement (mass/volume ) 15 mg/dL 7-18 Serum or plasma creatinine measurement (mass/volume) 1.04 mg/dL 0.60-1.30 Serum or plasma urea nitrogen/creatinine mass ratio 14 NRG Serum or plasma creatinine measurement w ith calculation of estimated glomerular filtration rate > NRG Serum or plasma glucose measurement (mass/volume) 97 mg/dL 70-105 Serum or plasma calcium measurement (mass/volume) 8.8 mg/dL 8.5-10.1 Serum or plasma total bilirubin measurement (mass/volu me) 0.4 mg/dL 0.1-1.0 Serum or plasma alkaline phosphatase scooter surement (enzymatic activity/volume) 67 U/L 40-136 Serum or plasma aspartate aminotransfera se measurement (enzymatic activity/volume) 16 U/L 5-34 Serum or plasma alanine aminotransferase measurement (enzymatic activity/volume) 17 U/L 0-55 Serum or plasma protein measurement (mass/volume) 7.0 g/dL 6.4-8.2 Serum or plasma albumin measurement (mass/volume) 4.0 g/dL 3.2-4.5 CALCIUM CORRECTED 8.8 mg/dL 8.5-10.1 Lipase - 07/09/19 16:30 Lipase 25 U/L 8-78 CMP - 08/21/19 14:55 GLUCOSE 89 mg/dL 65-99 UREA NITROGEN (BUN) 14 mg/dL 7-25 CREATININE 0.90 mg/dL 0.50-1.10 eGFR NON-AFR. PERUVIAN 91 mL/min/1.73m2 > OR = 60 eGFR 105 mL/min/1.73m2 > OR = 60 BUN/CREATININE RATIO NOT APPLICABLE (calc) 6-22 SODIUM 139 mmol/L 135-146 POTASSIUM 4.1 mmol/L 3.5-5.3 CHLORIDE 106 mmol/L 98-110 CARBON DIOXIDE 27 mmol/L 20-32 CALCIUM 9.8 mg/dL 8.6-10.2 PROTEIN, TOTAL 6.6 g/dL 6.1-8.1 ALBUMIN 4.3 g/dL 3.6-5.1 GLOBULIN 2.3 g/dL (calc) 1.9-3.7 ALBUMIN/GLOBULIN RATIO 1.9 (calc) 1.0-2. 5 BILIRUBIN, TOTAL 0.5 mg/dL 0.2-1.2 ALKALINE PHOSPHATASE 64 U/L 33-115 AST 13 U/L 10-30 ALT 11 U/L 6-29 CBC - 08/21/19 14:55 WHITE BLOOD CELL COUNT 8.1 Thousand/uL 3 .8-10.8 RED BLOOD CELL COUNT 4.47 Million/uL 3.8 0-5.10 HEMOGLOBIN 13.5 g/dL 11.7-15.5 HEMATOCRIT 40.1 % 35.0-45.0 MCV 89.7 fL 80.0-100.0 MCH 30.2 pg 27.0-33.0 MCHC 33.7 g/dL 32.0-36.0 RDW 12.2 % 11.0-15.0 PLATELET COUNT 288 Thousand/uL 140-400 MPV 10.7 fL 7.5-12.5 ABSOLUTE NEUTROPHILS 4892 cells/uL 1500- 7800 ABSOLUTE LYMPHOCYTES 2608 cells/uL 850-3 900 ABSOLUTE MONOCYTES 446 cells/uL 200-950 ABSOLUTE EOSINOPHILS 113 cells/uL 15-500 ABSOLUTE BASOPHILS 41 cells/uL 0-200 NEUTROPHILS 60.4 % NRG LYMPHOCYTES 32.2 % NRG MONOCYTES 5.5 % NRG EOSINOPHILS 1.4 % NRG BASOPHILS 0.5 % NRG TSH - 08/21/19 14:55 TSH 3.57 mIU/L NRG BMP - 10/08/19 17:14 Anion Gap 13 6-14 BUN 16 mg/dL 5-25 Calcium 9.6 mg/dL 8.3-10.4 Chloride 107 mmol/L 95-114 CO2 22 mEq/L 22-33 Creat 1.01 mg/dL 0.50-1.50 eGFR 68 mL/min/1.73m2 >59 Glucose 105 mg/dL 70-110 Osmo 287 280-295 Potassium 4.0 mmol/L 3.5-5.3 Sodium 138 mmol/L 134-148 Comprehensive metabolic panel - 11/19/19 08:25 Serum or plasma sodium measurement (moles/volume) 136 mmol/L 135-145 Serum or plasma potassium measurement (moles/volume) 4.0 mmol/L 3.6-5.0 Serum or plasma chloride measurement (moles/volume) 101 mmol/L 98-107 Carbon dioxide 25 mmol/L 21-32 Serum or plasma anion gap determination (moles/volume) 10 mmol/L 5-14 Serum or plasma urea nitrogen measurement (mass/volume ) 14 mg/dL 7-18 Serum or plasma creatinine measurement (mass/volume) 1.11 mg/dL 0.60-1.30 Serum or plasma urea nitrogen/creatinine mass ratio 13 NRG Serum or plasma creatinine measurement w ith calculation of estimated glomerular filtration rate > NRG Serum or plasma glucose measurement (mass/volume) 101 mg/dL 70-105 Serum or plasma calcium measurement (mass/volume) 8.9 mg/dL 8.5-10.1 Serum or plasma total bilirubin measurement (mass/volu me) 0.4 mg/dL 0.1-1.0 Serum or plasma alkaline phosphatase scooter surement (enzymatic activity/volume) 76 U/L 40-136 Serum or plasma aspartate aminotransfera se measurement (enzymatic activity/volume) 24 U/L 5-34 Serum or plasma alanine aminotransferase measurement (enzymatic activity/volume) 29 U/L 0-55 Serum or plasma protein measurement (mass/volume) 7.1 g/dL 6.4-8.2 Serum or plasma albumin measurement (mass/volume) 4.3 g/dL 3.2-4.5 CALCIUM CORRECTED 8.7 mg/dL 8.5-10.1 Lipase - 11/19/19 08:25 Lipase 31 U/L 8-78 Serum or plasma choriogonadotropin (preg alexander test) detection - 11/19/19 08:25 Serum or plasma choriogonadotropin ( test) de tection NEGATIVE NEGATIVE Influenza virus A and B antigen detectio n - 11/19/19 08:29 FLU RESULT NEGATIVE FOR INFLUENZA A AND B ANTIGENS BY IA NRG Encounters ACCT No. Visit Date/Time Discharge Status Pt. Type Provider Facility Loc./Unit Complaint [id number] 10/08/2019 16:55:00 10/08/2019 18:05 :00 DIS Outpatient [facility] ER [id number] 09/16/2018 11:48:00 09/16/2018 14:16: 00 DIS Outpatient [facility] ER [id number] 09/16/2018 12:30:10 Document Registration [id number] 11/19/2019 07:50:00 10:43:00 DIS Emergency DELMI DILLON, JON Celestin [facility] ER FS VOMITING [id number] 07/09/2019 16:05:00 17:47:00 DIS Emergency ARIES QUINTEROS DO [facility] ER FS DIARRHEA, STOMACH PAIN [id number] 11/28/2018 10:56:00 13:55:00 DIS Emergency ARNEL DILLON, GABRIELA Johnson [facility] ER FS CHEST PAIN,DIZZY [id number] 02/19/2018 21:35:00 00:15:00 DIS Emergency SPEEDY DILLON, ROBERT Marcial [facility] ER VOMITING [id number] 11/13/2019 13:45:00 11/13/2019 23:59: 59 [facility] Outpatient [facility] [id number] 08/21/2019 14:15:00 Document Registration [id number] 06/10/2019 15:15:00 Document Registration [id number] 12/12/2018 15:00:00 Document Registration
== END 2019-11-19 10:43 | disposition home or self-care (01) ==
LOC: EDUNIT# 07:49 → ER FS 07:50
DX: R10.84 Generalized abdominal pain (principal); E86.0 Dehydration; Z88.0 Allergy status to penicillin; Z77.22 Contact with and (suspected) exposure to environmental tobacco smoke (acute) (chronic)
CPT/HCPCS: 36415; 74177; 80053; 83690; 84703; 85025; 87804

== ENCOUNTER 2020-01-23 09:18 | Emergency (ER) | payer BC ==
[~2020-01-23] VITALS: Ht 155 cm; Wt 89.4 kg
[~2020-01-23 09:18] MED LIST changes: -FAMO-119 PO
[2020-01-23 09:26] VITALS: BP 106/67
[2020-01-23] MEDS ORDERED: ANTACID SUSP 30 ML UDC (MYLANTA) PO ONE (09:45)
[2020-01-23] MEDS ORDERED: LIDOCAINE 2% VISCOUS 15 ML UDC PO ONE (09:45)
[2020-01-23] MEDS ORDERED: FAMOTIDINE 20 MG (PEPCID) TABLET PO ONE (09:45)
--- NOTE | 2020-01-23 09:46 | ED Abdominal Pain ---
General Chief Complaint: Abdominal/GI Problems Stated Complaint: ABD PAIN Nursing Triage Note: Patient reports epigastric pain starting last night radiating to RUQ worse with deep breathing Sepsis Screen: No Definite Risk History of Present Illness Date Seen by Provider: January 23, 2020 Time Seen by Provider: 09:37 Initial Comments Presents w onset of upper abdominal pain since last night. Sharp, constant w NO associated nausea or vomiting. No constipation or diarrhea. Wasn't hungry last night. Non-smoker, no illicit drugs. Drinks sweet tea and orange juice daily. Not taking any ASA or NSAIDS. Hx of cholecystectomy in 2016. Allergies and Home Medications Allergies Coded Allergies: egg (Unverified Allergy, Severe, throat swelling, 11/28/18) Penicillins (Unverified Adverse Reaction, Unknown, 11/19/19) Home Medications Dicyclomine HCl 20 Mg Tablet, 20 MG PO Q6H PRN for abdominal pain Prescribed by: JON AWAD on 11/19/19 1034 Ondansetron 4 Mg Tab.rapdis, 4 MG PO Q6H PRN for NAUSEA/VOMITING Prescribed by: JON JIRT on 11/19/19 1034 Patient Home Medication List Home Medication List Reviewed: Yes Review of Systems Review of Systems Constitutional: see HPI; No fever, No malaise, No weakness Respiratory: Denies Cough, Denies Shortness of Air Cardiovascular: Denies Chest Pain, Denies Edema, Denies Irregular Heart Rate Gastrointestinal: See HPI; Denies Abdomen Distended; Abdominal Pain; Denies Constipated, Denies Diarrhea, Denies Difficulty Swallowing, Denies Nausea; Poor Appetite; Denies Poor Fluid Intake, Denies Rectal Bleeding, Denies Vomiting Genitourinary: Denies Frequency, Denies Flank Pain Musculoskeletal: No back pain, No joint pain Skin: No change in color, No lesions, No lumps, No rash Past Ytioqvu-Mjnphp-Afuvkf Hx Past Med/Social Hx: Reviewed Nursing Past Med/Soc Hx Patient Social History Alcohol Use: Denies Use Recreational Drug Use: No 2nd Hand Smoke Exposure: Yes Recent Foreign Travel: No Contact w/Someone Who Travel: No Recent Infectious Disease Expo: No Recent Hopitalizations: No Immunizations Up To Date Tetanus Booster (TDap): Unknown PED Vaccines UTD: Yes Seasonal Allergies Seasonal Allergies: No Past Medical History Surgeries: Yes Adenoidectomy, Gallbladder, Tonsillectomy Respiratory: No Cardiac: No Neurological: No Genitourinary: No Gastrointestinal: No Musculoskeletal: No Endocrine: Yes Hypothyroidsim HEENT: No Cancer: No Psychosocial: No Integumentary: No Blood Disorders: No Physical Exam Vital Signs Vital Signs - First Documented 01/23/20 09:26 Temp 37.2 Pulse 85 Resp 18 B/P (MAP) 106/67 (80) Pulse Ox 98 Capillary Refill : Less Than 3 Seconds Height/Weight/BMI Height: 5'1.00" Weight: 170lbs. oz. [id number]; 37.00 BMI Method:Stated General Appearance: WD/WN, no apparent distress Respiratory: chest non-tender, lungs clear, normal breath sounds Cardiovascular: regular rate, rhythm, no edema Gastrointestinal: soft, no organomegaly, no pulsatile mass; No guarding, No rebound; tenderness (epigastric only); No hernia, No mass, No hepatomegaly, No spleenomegaly Neurologic/Psychiatric: alert, oriented x 3 Skin: normal color, warm/dry Progress/Results/Core Measures Results/Orders My Orders Orders - TRENTON PIERCE DO Antacid Suspension (Mylanta Suspension (01/23/20 09:45) Lidocaine 2% Viscous 15 Ml (Xylocaine Vi (01/23/20 09:45) Famotidine Tablet (Pepcid Tablet) (01/23/20 09:45) Vital Signs/I&O 01/23/20 09:26 Temp 37.2 Pulse 85 Resp 18 B/P (MAP) 106/67 (80) Pulse Ox 98 Blood Pressure Mean: 80 Progress Progress Note : Progress Note epigastric pain w non-acute abdomen. Trial of H-2 bean and f/u w PCP in 1 wk. Advised to hold off drinking OJ for now. Departure Impression Primary Impression: Epigastric pain Disposition: HOME, SELF-CARE Condition: Improved Departure-Patient Inst. Decision time for Depature: 09:47 Referrals: BO MARTE MD (PCP/Family) Primary Care Physician Patient Instructions: Stomach Ache and Stomach Upset, Ulcer and Gastritis Diet Scripts Famotidine (Pepcid) 20 Mg Tablet 20 MG PO BID, #60 TAB Prov: TRENTON PIERCE DO 01/23/20 TRENTON PIERCE DO January 23, 2020 09:46
[2020-01-23] MEDS ORDERED: FAMO-119 PO (09:48)
--- OUTSIDE RECORDS SUMMARY | 2020-01-23 09:55 | XMS REPORT | Continuity of Care Document ---
Demographics Preferred Language Unknown Marital Status Unknown Mu-Ism Affiliation Unknown Race Unknown Ethnic Group Unknown Author Organization Unknown Address Unknown Phone Unavailable Allergies Active Description Code Type Severity Reaction Onset Reported/Identified Relationship to Patient Clinical Status Yes NO KNOWN DRUG ALLERGIES UNKNOWN NO KNOWN DRUG ALLERG Yes NO KNOWN DRUG ALLERGIES UNKNOWN UNKNOWN Yes No Known Drug Allergies [id number] Drug Allergy Unknown N/A 02/19/2018 Yes egg [id number] Drug Allergy Severe throat swelling 11/28/2018 Yes Penicillins [id number] Drug Aller gy Unknown N/A 11/19/2019 Medications [...] OTHER SPECIFIED POSTPROCEDURAL STATES 09/16/2018 Edy Andrea 724.2 LUMBAGO 09/16/2018 Emre Edy Garcia 789.07 ABDOMINAL PAIN, GENERALIZED 09/16/2018 EmreEdy M54.5 LOW BACK PAIN 09/16/2018 Edy Andrea Jose R10.84 GENERALIZED ABDOMINAL PAIN 11/28/2018 ARNEL DILLON, GABRIELA Johnson Ot E03 .9 HYPOTHYROIDISM, UNSPECIFIED 11/28/2018 ARNEL DILLON, GABRIELA Johnson Ot R05 COUGH 11/28/2018 ARNEL DILLON, GABRIELA Johnson Ot R07.81 PLEURODYNIA 11/28/2018 ARNEL DILLON, GABRIELA Johnson Ot Z98.890 OTHER SPECIFIED POSTPROCEDURAL STATES 07/09/2019 ARIES QUINTEROS DO B Ot E03. 9 HYPOTHYROIDISM, UNSPECIFIED 07/09/2019 ARIES QUINTEROS DO B Ot R11. 2 NAUSEA WITH VOMITING, UNSPECIFIED 07/09/2019 ARIES QUINTEROS DO B Ot R19. 7 DIARRHEA, UNSPECIFIED 07/09/2019 ARIES QUINTEROS DO B Ot Z77. 22 CNTCT W AND EXPSR TO ENVIRON TOBACCO SMO 10/08/2019 Emre Edy Jose 466.0 ACUTE BRONCHITIS 10/08/2019 ChesterjaidadeionEdy J20.0 ACUTE BRONCHITIS DUE TO MYCOPLASMA PNEUMONIAE 10/08/2019 ChesterjaidadeionEdy M54.5 LOW BACK PAIN 10/08/2019 EmreEdy R10.84 GENERALIZED ABDOMINAL PAIN 11/19/2019 JON AWAD MD Ot E86.0 DEHYDRATION 11/19/2019 JON AWAD MD Ot R10.8 4 GENERALIZED ABDOMINAL PAIN 11/19/2019 JON AWAD MD Ot R11.2 NAUSEA WITH VOMITING, UNSPECIFIED 11/19/2019 JON AWAD MD Ot Z77.2 2 CNTCT W AND EXPSR TO ENVIRON TOBACCO SMO 11/19/2019 JON AWAD MD Ot Z88.0 ALLERGY STATUS TO PENICILLIN Procedures There is no data. Results Test Result Range CBC With Differential/Platelet - 7 08:33 WBC 8.3 x10E3/uL 3.4-10.8 RBC 4.82 x10E6/uL 3.77-5.28 Hemoglobin 14.1 g/dL 11.1-15.9 Hematocrit 42.5 % 34.0-46.6 MCV 88 fL 79-97 MCH 29.3 pg 26.6-33.0 MCHC 33.2 g/dL 31.5-35.7 RDW 13.1 % 12.3-15.4 Platelets 320 x10E3/uL 150-379 Neutrophils 59 % Lymphs 35 % Monocytes 5 % Eos 1 % Basos 0 % Neutrophils (Absolute) 4.9 x10E3/uL 1.4- 7.0 Lymphs (Absolute) 2.9 x10E3/uL 0.7-3.1 Monocytes(Absolute) 0.4 x10E3/uL 0.1-0.9 Eos (Absolute) 0.1 x10E3/uL 0.0-0.4 Baso (Absolute) 0.0 x10E3/uL 0.0-0.2 Immature Granulocytes 0 % Immature Grans (Abs) 0.0 x10E3/uL 0.0-0. 1 Comp. Metabolic Panel (14) - 11/03/16 08 :33 Glucose, Serum 86 mg/dL 65-99 BUN 16 mg/dL 6-20 Creatinine, Serum 0.96 mg/dL 0.57-1.00 eGFR If NonAfricn Am 86 mL/min/1.73 >59 eGFR If Africn Am 99 mL/min/1.73 >59 BUN/Creatinine Ratio 17 8-20 Sodium, Serum 138 mmol/L 134-144 Potassium, Serum 4.6 mmol/L 3.5-5.2 Chloride, Serum 102 mmol/L 96-106 Carbon Dioxide, Total 21 mmol/L 18-29 Calcium, Serum 9.4 mg/dL 8.7-10.2 Protein, Total, Serum 7.1 g/dL 6.0-8.5 Albumin, Serum 4.3 g/dL 3.5-5.5 Globulin, Total 2.8 g/dL 1.5-4.5 A/G Ratio 1.5 1.1-2.5 Bilirubin, Total 0.3 mg/dL 0.0-1.2 Alkaline Phosphatase, S 71 IU/L 39-117 AST (SGOT) 11 IU/L 0-40 ALT (SGPT) 15 IU/L 0-32 Lipid Panel - 11/03/16 08:33 Cholesterol, Total 134 mg/dL 100-169 Triglycerides 73 mg/dL 0-89 HDL Cholesterol 35 mg/dL >39 VLDL Cholesterol Drew 15 mg/dL 5-40 LDL Cholesterol Calc 84 mg/dL 0-109 Testosterone, Total, LC/MS - 11/03/16 08 :33 Testosterone, Total, LC/MS 40 ng/dL Hemoglobin A1c - 11/03/16 08:33 Hemoglobin A1c 5.0 % 4.8-5.6 DHEA-Sulfate - 11/03/16 08:33 DHEA-Sulfate 102.6 ug/dL 110.0-433.2 FSH, Serum - 11/03/16 08:33 FSH 2.6 mIU/mL Prolactin - 11/03/16 08:33 Prolactin 22.2 ng/mL 4.8-23.3 Estradiol - 11/03/16 08:33 Estradiol 105.1 pg/mL Thyroid [place] Profile - 11/03/16 08:33 TSH 3.600 uIU/mL 0.450-4.500 Insulin - 11/03/16 08:33 Insulin 26.8 uIU/mL 2.6-24.9 Complete blood count (CBC) with automate d [...] Negative Urine-Blood Negative Negative Urine-Color Yellow Colorless-Lt. [place] ow Urine-Epithelial Cells 5-10/HPF Urine-Glucose Negative Negative Urine-Ketones Negative Negative Urine-Leukocytes Negative Negative Urine-Nitrite Negative Negative Urine-Other Urine Saved if Culture Need ed (48hrs from time of collection) Urine-pH 7.0 5-8.5 Urine-Protein Negative Negative Urine-RBC Negative Urine-Specific [place] 1.025 1.000-1 .030 Urine-WBC Rare/HPF Urobilinogen 0.2 [...] 7-25 CREATININE 1.04 mg/dL 0.50-1.10 eGFR NON-AFR. [place] 76 mL/min/1.73m2 > OR = 60 eGFR [...] 7-25 CREATININE 0.90 mg/dL 0.50-1.10 eGFR NON-AFR. [place] 91 mL/min/1.73m2 > OR = 60 eGFR [...] A AND B ANTIGENS BY IA NRG THYROID PEROXIDASE ANTIBODIES - 12/02/19 12:14 THYROID PEROXIDASE ANTIBODIES 593 IU/mL <9 Encounters ACCT No. Visit Date/Time Discharge Status Pt. Type Provider Facility Loc./Unit Complaint [id number] 11/08/2016 03:06:00 Document Registration [id number] 11/19/2019 07:50:00 020 10:43:00 DIS Emergency JON AWAD MD [facility] ER FS VOMITING [id number] 07/09/2019 16:05:00 17:47:00 DIS Emergency ARIES QUINTEROS DO Via [facility] ER FS DIARRHEA, STOMACH PAIN [id number] 11/28/2018 10:56:00 019 13:55:00 DIS Emergency ARNEL DILLON, GABRIELA Johnson Via [facility] ER FS CHEST PAIN,DIZZY [id number] 02/19/2018 21:35:00 018 00:15:00 DIS Emergency SPEEDY DILLON, ROBERT Marcial Via [facility] ER VOMITING [id number] 11/13/2019 13:45:00 11/13/2019 23:59: 59 CLS Outpatient SANJAY [facility] [id number] 12/02/2019 11:00:00 Document Registration [id number] 08/21/2019 14:15:00 Document Registration [id number] 06/10/2019 15:15:00 Document Registration [id number] 12/12/2018 15:00:00 Document Registration [id number] 10/08/2019 16:55:00 10/08/2019 18:05 :00 [id number] 09/16/2018 11:48:00 09/16/2018 14:16: 00 [id number] 09/16/2018 12:30:10 Document Registration
== END 2020-01-23 09:55 | disposition home or self-care (01) ==
LOC: EDUNIT# 09:18 → ER FS 09:21
DX: R10.13 Epigastric pain (principal); Z88.0 Allergy status to penicillin; Z77.22 Contact with and (suspected) exposure to environmental tobacco smoke (acute) (chronic)
CPT/HCPCS: 99282

== ENCOUNTER → 2020-01-23 | Outpatient (CLI) | payer BC ==
[~2020-01-23] MED LIST changes: +CITA20TA9; +DICY20TA10 PO; +FAMO-119 PO; +Levothyroxine
[2020-01-23 17:32] LABS: CHLORIDE 104 MMOL/L (98-107); POTASSIUM 4.4 MMOL/L (3.6-5.0); SODIUM 138 MMOL/L (135-145)
[2020-01-23 17:33] LABS: ALANINE AMINOTRANSFERASE 334 U/L (0-55); ALBUMIN 3.9 GM/DL (3.2-4.5); ALKALINE PHOSPHATASE 86 U/L (40-136); BILIRUBIN,TOTAL 0.3 MG/DL (0.1-1.0); BUN/CREATININE RATIO 16; CARBON DIOXIDE 24 MMOL/L (21-32); CREATININE SERUM 0.95 MG/DL (0.60-1.30); GFR ESTIMATED > 60; GLUCOSE 97 MG/DL (70-105); TOTAL PROTEIN 6.7 GM/DL (6.4-8.2)
[2020-01-23 17:34] LABS: BASOPHILS % (AUTO) 1 % (0-10); EOSINOPHILS % (AUTO) 2 % (0-10); HEMATOCRIT 39 % (35-52); HEMOGLOBIN 13.2 G/DL (11.5-16.0); LYMPHOCYTES % (AUTO) 43 % (12-44); MEAN CORPUSCULAR HEMOGLOBIN 29 PG (25-34); MEAN CORPUSCULAR HGB CONC 34 G/DL (32-36); MEAN CORPUSCULAR VOLUME 88 FL (80-99); MONOCYTES % (AUTO) 7 % (0-12); NEUTROPHILS % (AUTO) 47 % (42-75); PLATELET COUNT 307 10^3/uL (130-400); RED CELL DISTRIBUTION WIDTH 12.2 % (10.0-14.5); WHITE BLOOD COUNT 7.5 10^3/uL (4.3-11.0)
[2020-01-23 17:35] LABS: EOSINOPHILS # (AUTO) 0.1 10^3/uL (0.0-0.3); LYMPHOCYTES # (AUTO) 3.2 X 10^3 (1.0-4.0); MONOCYTES # (AUTO) 0.6 X 10^3 (0.0-1.0); NEUTROPHILS # (AUTO) 3.5 X 10^3 (1.8-7.8)
== END ==
LOC: LAB FS 15:29
PROVIDERS: ATTEND Family Medicine
DX: R10.13 Epigastric pain (principal)
CPT/HCPCS: 36415; 80053; 85025

== ENCOUNTER → 2020-01-26 | Outpatient (CLI) | payer BC ==
[~2020-01-26] MED LIST changes: +FAMO-119 PO
[2020-01-27 22:18] LABS: HEPATITIS C ANTIBODY C Non-Reactive (Non-Reactive)
== END ==
LOC: LAB FS 15:05
PROVIDERS: ATTEND Family Medicine
DX: R74.8 Abnormal levels of other serum enzymes (principal)
CPT/HCPCS: 36415; 80074; 83690

== ENCOUNTER → 2020-01-30 | Outpatient (CLI) | payer BC ==
[2020-01-30 10:58] LABS: BUN/CREATININE RATIO 14; CARBON DIOXIDE 25 MMOL/L (21-32); CHLORIDE 104 MMOL/L (98-107); CREATININE SERUM 1.03 MG/DL (0.60-1.30); GFR ESTIMATED > 60; GLUCOSE 104 MG/DL (70-105); POTASSIUM 4.4 MMOL/L (3.6-5.0); SODIUM 141 MMOL/L (135-145)
[2020-01-30 10:59] LABS: ALANINE AMINOTRANSFERASE 88 U/L (0-55); ALBUMIN 4.3 GM/DL (3.2-4.5); ALKALINE PHOSPHATASE 74 U/L (40-136); BILIRUBIN,TOTAL 0.4 MG/DL (0.1-1.0); CALCIUM 9.8 MG/DL (8.5-10.1); TOTAL PROTEIN 7.2 GM/DL (6.4-8.2)
== END ==
LOC: LAB FS 09:25
PROVIDERS: ATTEND Family Medicine
DX: R74.8 Abnormal levels of other serum enzymes (principal)
CPT/HCPCS: 36415; 80053

== ENCOUNTER → 2020-02-09 | Outpatient (CLI) | payer BC ==
[2020-02-09 11:25] LABS: CHLORIDE 105 MMOL/L (98-107); SODIUM 140 MMOL/L (135-145)
[2020-02-09 11:26] LABS: ALANINE AMINOTRANSFERASE 13 U/L (0-55); ALKALINE PHOSPHATASE 77 U/L (40-136); BILIRUBIN,TOTAL 0.5 MG/DL (0.1-1.0); BUN/CREATININE RATIO 12; CALCIUM 9.4 MG/DL (8.5-10.1); CARBON DIOXIDE 23 MMOL/L (21-32); CREATININE SERUM 1.05 MG/DL (0.60-1.30); GFR ESTIMATED > 60; GLUCOSE 130 MG/DL (70-105)
[2020-02-09 11:27] LABS: ALBUMIN 4.2 GM/DL (3.2-4.5)
== END ==
LOC: LAB FS 10:41
PROVIDERS: ATTEND Family Medicine
DX: R74.8 Abnormal levels of other serum enzymes (principal)
CPT/HCPCS: 36415; 80053

== ENCOUNTER → 2020-02-10 | Outpatient (CLI) | payer BC ==
[~2020-02-10] MED LIST changes: +HOLD METFORMIN - RECEIVED CONTRAST 20 ML VIAL IV SCH; +IOHEXOL 350 MG/ML 100 ML (OMNIPAQUE 350) VIAL IV ONE; +NS 100 ML (IVPB) BAG IV ONE
--- NOTE | 2020-02-10 10:55 | Diagnostic Imaging Report ---
PROCEDURE: CT abdomen and pelvis with contrast. TECHNIQUE: Multiple contiguous axial images were obtained through the abdomen and pelvis after administration of intravenous contrast. Auto Exposure Controls were utilized during the CT exam to meet ALARA standards for radiation dose reduction. INDICATION: Right upper quadrant pain with elevated liver enzymes x 1 week. Nausea. CORRELATION STUDY: 11/19/2019. FINDINGS: LOWER THORAX: Clear. LIVER: Mild diffuse hepatic steatosis. More focal area of infiltration along the falciform ligament. GALLBLADDER: Cholecystectomy. No significant bile duct dilatation. SPLEEN: Unremarkable. PANCREAS: Unremarkable. ADRENAL GLANDS: Unremarkable. KIDNEYS: Normal configuration. No calcification or obstruction. ABDOMINAL AORTA: Nonaneurysmal; however, there does appear to be likely narrowing which may be significant at the origin of the celiac trunk. Retroaortic left renal vein, a normal variant. GASTROINTESTINAL TRACT: No obstruction or inflammation. Normal appendix. URINARY BLADDER: Unremarkable. REPRODUCTIVE: The uterus and adnexa appear generally unremarkable. OSSEOUS STRUCTURES: No acute abnormality. OTHER: None. IMPRESSION: 1. Negative for acute abnormality of the abdomen or pelvis. 2. Mild hepatic steatosis. 3. While limited in evaluation, there does appear to be likely short segment narrowing at the origin of the celiac trunk. Dictated by: Dictated on workstation # [id number]
== END ==
LOC: RAD FS 09:28
PROVIDERS: ATTEND Family Medicine
DX: K76.0 Fatty (change of) liver, not elsewhere classified (principal); R74.8 Abnormal levels of other serum enzymes
CPT/HCPCS: 74177

== ENCOUNTER 2020-03-06 20:53 | Emergency (ER) | payer BC ==
[~2020-03-06] VITALS: Ht 154 cm; Wt 89.8 kg
[~2020-03-06 20:53] MED LIST changes: -HOLD METFORMIN - RECEIVED CONTRAST 20 ML VIAL IV SCH; -IOHEXOL 350 MG/ML 100 ML (OMNIPAQUE 350) VIAL IV ONE; -NS 100 ML (IVPB) BAG IV ONE
--- OUTSIDE RECORDS SUMMARY | 2020-03-06 21:01 | XMS REPORT | Continuity of Care Document ---
Demographics Preferred Language Unknown Marital Status Unknown Hindu Affiliation Unknown Race Unknown Ethnic Group Unknown Author Organization Unknown Address Unknown Phone Unavailable Allergies Active Description Code Type Severity Reaction Onset Reported/Identified Relationship to Patient Clinical Status Yes AMOXICILLIN SEVERE SEVERE Yes NO KNOWN DRUG ALLERGIES UNKNOWN NO KNOWN DRUG ALLERG Yes NO KNOWN DRUG ALLERGIES UNKNOWN UNKNOWN Yes No Known Drug Allergies [id number] Drug Allergy Unknown N/A 02/19/2018 Yes egg [id number] Drug Allergy Severe throat swelling 11/28/2018 Yes Penicillins [id number] Drug Aller gy Unknown N/A 11/19/2019 Medications Medication Packaging Start Date St op Date Route Dosage Sig KETOROLAC VIAL INJ 60 MG/2CC (TORADOL VIAL ) MG 09/16/2018 09/16/2018 ONCE&1229 FAMOTIDINE VIAL INJ 20 MG/2CC (PEPCID VIAL ) MG 01/25/2020 01/25/2020 ONCE&0604 PANTOPRAZOLE VIAL INJ 40 MG (PROTONIX IV) MG 01/25/2020 01/25/2020 ONCE&0604 GI COCKTAIL SINGLE DOSE LIQ (GRASSHOPPER) ML 01/25/2020 01/25/2020 ONCE&0604 NORMAL SALINE 500CC IV BAG I NJ 0.9 % (NS 500CC IV BAG) ml 01/25/2020 01/25/2020 ONCE&0713 FAMOTIDINE VIAL INJ 20 MG/2CC (PEPCID VIAL ) MG 01/25/2020 01/31/2020 BID&0800,2000 PANTOPRAZOLE VIAL INJ 40 MG (PROTONIX IV) MG 01/25/2020 02/03/2020 Q24H&0900 Problems Date Dx Coded Attending Type Code Diagnosis Diagnosed By 02/20/2018 ROBERT RUFF MD Ot A08. 4 VIRAL INTESTINAL INFECTION, UNSPECIFIED 02/20/2018 ROBERT RUFF MD Ot E03. 9 HYPOTHYROIDISM, UNSPECIFIED 02/20/2018 ROBERT RUFF MD Ot R11. 2 NAUSEA WITH VOMITING, UNSPECIFIED 02/20/2018 ROBERT RUFF MD Ot Z98.890 OTHER SPECIFIED POSTPROCEDURAL STATES 02/21/2018 ROBERT RUFF MD Ot A08. 4 VIRAL INTESTINAL INFECTION, UNSPECIFIED 02/21/2018 SPEEDY DILLON, ROBERT Marcial Ot E03. 9 HYPOTHYROIDISM, UNSPECIFIED 02/21/2018 SPEEDY DILLON, ROBERT J Ot R11. 2 NAUSEA WITH VOMITING, UNSPECIFIED 02/21/2018 SPEEDY DILLON, ROBERT J Ot Z98.890 OTHER SPECIFIED POSTPROCEDURAL STATES 02/25/2018 ROBERT RUFF MD J Ot A08. 4 VIRAL INTESTINAL INFECTION, UNSPECIFIED 02/25/2018 SPEEDY DILLON, ROBERT J Ot E03. 9 HYPOTHYROIDISM, UNSPECIFIED 02/25/2018 SPEEDY DILLON, ROBERT J Ot R11. 2 NAUSEA WITH VOMITING, UNSPECIFIED 02/25/2018 SPEEDY DILLON, ROBERT J Ot Z98.890 OTHER SPECIFIED POSTPROCEDURAL STATES 09/16/2018 Edy Andrea 724.2 LUMBAGO 09/16/2018 Edy Andrea 789.07 ABDOMINAL PAIN, GENERALIZED 09/16/2018 Edy Andrea M54.5 LOW BACK PAIN 09/16/2018 Edy Andrea R10.84 GENERALIZED ABDOMINAL PAIN 11/28/2018 ARNEL DILLON, [...] 2 NAUSEA WITH VOMITING, UNSPECIFIED 07/09/2019 ARIES QUNITEROS DO B Ot R19. 7 DIARRHEA, UNSPECIFIED 07/09/2019 ARIES QUINTEROS DO B Ot Z77. 22 CNTCT W AND EXPSR TO ENVIRON TOBACCO SMO 10/08/2019 Edy Andrea 466.0 ACUTE BRONCHITIS 10/08/2019 Edy Andrea J20.0 ACUTE BRONCHITIS DUE TO MYCOPLASMA PNEUMONIAE 10/08/2019 Edy Andrea M54.5 LOW BACK PAIN 10/08/2019 Edy Andrea R10.84 GENERALIZED ABDOMINAL PAIN 11/19/2019 DELMI DILLON, JON E Ot E86.0 DEHYDRATION 11/19/2019 ENKAREN DILLON, JON E Ot R10.8 4 GENERALIZED ABDOMINAL PAIN 11/19/2019 DELMI DILLON, JON Fawad Ot R11.2 NAUSEA WITH VOMITING, UNSPECIFIED 11/19/2019 DELMI DILLON, JON Fawad Ot Z77.2 2 CNTCT W AND EXPSR TO ENVIRON TOBACCO SMO 11/19/2019 DELMI DILLON, JON Celestin Ot Z88.0 ALLERGY STATUS TO PENICILLIN 01/23/2020 ROVENSTINE DO, TRENTON L Ot R10.13 EPIGASTRIC PAIN 01/23/2020 ROVENSTINE DO, TRENTON L Ot Z77.22 CNTCT W AND EXPSR TO ENVIRON TOBACCO SMO 01/23/2020 ROVENSTINE DO, TRENTON L Ot Z88.0 ALLERGY STATUS TO PENICILLIN 01/25/2020 Edy Andrea W 535.00 ACUTE GASTRITIS, WITHOUT MENTION OF HEMORRHAGE 01/25/2020 Edy Andrea W K29.00 ACUTE GASTRITIS WITHOUT BLEEDING 01/25/2020 Edy Andrea W 535.00 ACUTE GASTRITIS, WITHOUT MENTION OF HEMORRHAGE 01/25/2020 Edy Andrea W K29.00 ACUTE GASTRITIS WITHOUT BLEEDING 01/25/2020 Eyd Andrea W 535.00 ACUTE GASTRITIS, WITHOUT MENTION OF HEMORRHAGE 01/25/2020 Edy Andrea W 794.8 NONSPECIFIC ABNORMAL RESULTS OF FUNCTION STUDY OF LIVER 01/25/2020 Edy Andrea W K29.00 ACUTE GASTRITIS WITHOUT BLEEDING 01/25/2020 Edy Andrea W R94.5 ABNORMAL RESULTS OF LIVER FUNCTION STUDIES 01/25/2020 Edy Andrea W 535.00 ACUTE GASTRITIS, WITHOUT MENTION OF HEMORRHAGE 01/25/2020 Edy Andrea W 794.8 NONSPECIFIC ABNORMAL RESULTS OF FUNCTION STUDY OF LIVER 01/25/2020 Edy Andrea W K29.00 ACUTE GASTRITIS WITHOUT BLEEDING 01/25/2020 Edy Andrea W M54.5 LOW BACK PAIN 01/25/2020 Edy Andrea W R10.84 GENERALIZED ABDOMINAL PAIN 01/25/2020 Edy Andrea W R94.5 ABNORMAL RESULTS OF LIVER FUNCTION STUDIES 01/26/2020 ROVENSTINE DO, TRENTON L Ot R10.13 EPIGASTRIC PAIN 01/26/2020 ROVENSTINE DO, TRENTON L Ot Z77.22 CNTCT W AND EXPSR TO ENVIRON TOBACCO SMO 01/26/2020 ROVENSTINE DO, TRENTON Lou Ot Z88.0 ALLERGY STATUS TO PENICILLIN 01/27/2020 BO MARTE MD Ot R10.13 EPIGASTRIC PAIN 02/03/2020 BO MARTE MD Ot R74 .8 ABNORMAL LEVELS OF OTHER SERUM ENZYMES 02/06/2020 BO MARTE MD Ot R10.13 EPIGASTRIC PAIN 02/11/2020 BO MARTE MD Ot R74 .8 ABNORMAL LEVELS OF OTHER SERUM ENZYMES 02/11/2020 BO MARTE MD Ot R74 .8 ABNORMAL LEVELS OF OTHER SERUM ENZYMES 02/19/2020 BO MARTE MD Ot R10.13 EPIGASTRIC PAIN 02/19/2020 BO MARTE MD Ot R74 .8 ABNORMAL LEVELS OF OTHER SERUM ENZYMES 02/19/2020 BO MARTE MD Ot R74 .8 ABNORMAL LEVELS OF OTHER SERUM ENZYMES 02/19/2020 BO MARTE MD Ot K76 .0 FATTY (CHANGE OF) LIVER, NOT ELSEWHERE C 02/19/2020 BO MARTE MD Ot R74 .8 ABNORMAL LEVELS OF OTHER SERUM ENZYMES 02/19/2020 BO MARTE MD Ot R74 .8 ABNORMAL LEVELS OF OTHER SERUM ENZYMES 02/19/2020 BO MARTE MD Ot R10.13 EPIGASTRIC PAIN 02/19/2020 BO MARTE MD Ot R74 .8 ABNORMAL LEVELS OF OTHER SERUM ENZYMES 02/19/2020 BO MARTE MD Ot R74 .8 ABNORMAL LEVELS OF OTHER SERUM ENZYMES 02/19/2020 BO MARTE MD Ot K76 .0 FATTY (CHANGE OF) LIVER, NOT ELSEWHERE C 02/19/2020 BO MARTE MD Ot R74 .8 ABNORMAL LEVELS OF OTHER SERUM ENZYMES 02/19/2020 BO MARTE MD Ot R74 .8 ABNORMAL LEVELS OF OTHER SERUM ENZYMES 02/22/2020 BO MARTE MD Ot K76 .0 FATTY (CHANGE OF) LIVER, NOT ELSEWHERE C 02/22/2020 BO MARTE MD Ot R74 .8 ABNORMAL LEVELS OF OTHER SERUM ENZYMES 02/22/2020 BO MARTE MD Ot K76 .0 FATTY (CHANGE OF) LIVER, NOT ELSEWHERE C 02/22/2020 ESTUARDO DILLON, BO Johnson Ot R74 .8 ABNORMAL LEVELS OF OTHER SERUM ENZYMES 02/22/2020 ESTUARDO DILLON, BO Johnson Ot K76 .0 FATTY (CHANGE OF) LIVER, NOT ELSEWHERE C 02/22/2020 ESTUARDO DILLON, BO Johnson Ot R74 .8 ABNORMAL LEVELS OF OTHER SERUM ENZYMES 02/23/2020 ESTUARDO DILLON, BO Johnson Ot R74 .8 ABNORMAL LEVELS OF OTHER SERUM ENZYMES 03/01/2020 ESTUARDO DILLON, BO Johnson Ot K76 .0 FATTY (CHANGE OF) LIVER, NOT ELSEWHERE C 03/01/2020 ESTUARDO DILLON, BO Johnson Ot R74 .8 ABNORMAL LEVELS OF OTHER SERUM ENZYMES 03/01/2020 ESTUARDO DILLON BO Johnson Ot R74 .8 ABNORMAL LEVELS OF OTHER SERUM ENZYMES Procedures There is no data. Results Test [...] - 11/03/16 08:33 Estradiol 105.1 pg/mL Thyroid [place]are Profile - 11/03/16 08:33 TSH 3.600 uIU/mL [...] Negative Urine-Blood Negative Negative Urine-Color Yellow Colorless-Lt. [place] ow Urine-Epithelial Cells 5-10/HPF Urine-Glucose Negative Negative Urine-Ketones Negative Negative Urine-Leukocytes Negative Negative Urine-Nitrite Negative Negative Urine-Other Urine Saved if Culture Need ed (48hrs from time of collection) Urine-pH 7.0 5-8.5 Urine-Protein Negative Negative Urine-RBC Negative Urine-Specific [place] 1.025 1.000-1 .030 Urine-WBC Rare/HPF Urobilinogen 0.2 [...] 7-25 CREATININE 1.04 mg/dL 0.50-1.10 eGFR NON-AFR. [place] 76 mL/min/1.73m2 > OR = 60 eGFR [...] 7-25 CREATININE 0.90 mg/dL 0.50-1.10 eGFR NON-AFR. [place] 91 mL/min/1.73m2 > OR = 60 eGFR [...] 12:14 THYROID PEROXIDASE ANTIBODIES 593 IU/mL <9 Gamma Glutamyl Transferase - 01/25/20 06 :15 GGT 135 U/L 5-40 Urinalysis - 01/25/20 06:43 Icotest N/A Negative Urine Volume Urine Volume Sufficient (10mL) Urine Yeast No Yeast present Urine-Appearance Slightly Cloudy Clear Urine-Bacteria 3+ Urine-Bilirubin Negative Negative Urine-Blood Negative Negative Urine-Color Yellow Colorless-Lt. [place] ow Urine-Epithelial Cells 10-20/HPF Urine-Glucose Negative Negative Urine-Ketones Negative Negative Urine-Leukocytes Negative Negative Urine-Nitrite Negative Negative Urine-Other Urine Saved if Culture Need ed (48hrs from time of collection) Urine-pH 5.0 5-8.5 Urine-Protein Negative Negative Urine-RBC 0-2/HPF Urine-Specific [place] >=1.030 1.000-1 .030 Urine-WBC 2-5/HPF Urobilinogen 0.2 E.U./dL 0.2-1.0 Lipase - 01/26/20 10:20 Lipase 32 U/L 7-59 Encounters ACCT No. Visit Date/Time Discharge Status Pt. Type Provider Facility Loc./Unit Complaint [id number] 11/08/2016 03:06:00 Document Registration [id number] 02/10/2020 09:28:00 020 23:59:59 CLS Outpatient ESTUARDO DILLON, BO Johnson Via [facility] RAD FS RUQ ABD PAIN,ELEVATED L IVER ENZYMES [id number] 02/09/2020 10:41:00 23:59:59 CLS Outpatient ESTUARDO DILLON, BO Johnson [facility] LAB FS CMP [id number] 01/30/2020 09:25:00 23:59:59 CLS Outpatient BO MARTE MD [facility] LAB FS CMP [id number] 01/26/2020 15:05:00 23:59:59 CLS Outpatient ESTUARDO DILLON, BO Johnson [facility] LAB FS ELEVATED LIVER ENZYMES [id number] 01/23/2020 15:29:00 23:59:59 CLS Outpatient ESTUARDO DILLON, BO Johnson [facility] LAB FS R10.13 [id number] 01/23/2020 09:21:00 09:55:00 DIS Emergency TRENTON PIERCE DO Via [facility] ER FS ABD PAIN [id number] 11/19/2019 07:50:00 10:43:00 DIS Emergency DELMI DILLON, JON Celestin [facility] ER FS VOMITING [id number] 07/09/2019 16:05:00 17:47:00 DIS Emergency ARIES QUINTEROS DO Via [facility] ER FS DIARRHEA, STOMACH PAIN [id number] 11/28/2018 10:56:00 13:55:00 DIS Emergency ARNEL DILLON, GABRIELA Johnson [facility] ER FS CHEST PAIN,DIZZY [id number] 02/19/2018 21:35:00 00:15:00 DIS Emergency SPEEDY DILLON, ROBERT Marcial Via [facility] ER VOMITING [id number] 01/28/2020 08:00:00 01/28/2020 23:59: 59 CLS Outpatient SANJAY [facility] [id number] 12/02/2019 11:00:00 Document Registration [id number] 08/21/2019 14:15:00 Document Registration [id number] 06/10/2019 15:15:00 Document Registration [id number] 12/12/2018 15:00:00 Document Registration [id number] 01/26/2020 10:14:00 01/26/2020 23:59 :00 DIS Outpatient BO MARTE [id number] 01/25/2020 05:24:00 01/25/2020 07:55 :00 DIS Outpatient [facility] ER [id number] 10/08/2019 16:55:00 10/08/2019 18:05 :00 DIS Outpatient [facility] ER [id number] 09/16/2018 11:48:00 09/16/2018 14:16: 00 DIS Outpatient [facility] ER [id number] 09/16/2018 12:30:10 Document Registration
[2020-03-06] MEDS ORDERED: PRD20T PO (21:12)
--- NOTE | 2020-03-06 21:12 | ED Integumentary General ---
General Stated Complaint: RASH Source: patient Exam Limitations: no limitations History of Present Illness Date Seen by Provider: Mar 06, 2020 Time Seen by Provider: 21:02 Initial Comments The patient is a pleasant 24-year-old female presents for evaluation of a rash on her palms and soles and some tingling in her mouth over the last 2 days. She states the rash is somewhat it she. She denies any other complaints. She is alert and oriented 4, calm, and appears to be in no distress at this time. Timing/Duration: yesterday Severity: moderate Location: hands, feet Associated Symptoms: denies symptoms Allergies and Home Medications Allergies Coded Allergies: egg (Unverified Allergy, Severe, throat swelling, 11/28/18) Penicillins (Unverified Adverse Reaction, Unknown, 11/19/19) Home Medications Dicyclomine HCl 20 Mg Tablet, 20 MG PO Q6H PRN for abdominal pain Prescribed by: JON AWAD on 11/19/19 1034 Famotidine 20 Mg Tablet, 20 MG PO BID Prescribed by: TRENTON PIERCE on 01/23/20 0948 Ondansetron 4 Mg Tab.rapdis, 4 MG PO Q6H PRN for NAUSEA/VOMITING Prescribed by: JON AWAD on 11/19/19 1034 Patient Home Medication List Home Medication List Reviewed: Yes Review of Systems Review of Systems Constitutional: no symptoms reported EENTM: no symptoms reported Respiratory: no symptoms reported Cardiovascular: no symptoms reported Gastrointestinal: no symptoms reported Genitourinary: no symptoms reported Musculoskeletal: no symptoms reported Skin: rash (on hands and feet) Psychiatric/Neurological: No Symptoms Reported Endocrine: No Symptoms Reported Hematologic/Lymphatic: No Symptoms Reported All Other Systems Reviewed Negative Unless Noted: Yes Past Iseoyzt-Jozwke-Japlpq Hx Past Med/Social Hx: Reviewed Nursing Past Med/Soc Hx Patient Social History 2nd Hand Smoke Exposure: Yes Recent Foreign Travel: No Contact w/Someone Who Travel: No Recent Hopitalizations: No Immunizations Up To Date Tetanus Booster (TDap): Unknown PED Vaccines UTD: Yes Seasonal Allergies Seasonal Allergies: No Past Medical History Surgeries: Yes Adenoidectomy, Gallbladder, Tonsillectomy Respiratory: No Cardiac: No Neurological: No Genitourinary: No Gastrointestinal: No Musculoskeletal: No Endocrine: Yes Hypothyroidsim HEENT: No Cancer: No Psychosocial: No Integumentary: No Blood Disorders: No Physical Exam Vital Signs Capillary Refill : General Appearance: WD/WN, no apparent distress HEENT: PERRL/EOMI, pharynx normal Neck: non-tender, full range of motion, supple, normal inspection Cardiovascular: regular rate, rhythm, no edema, no murmur Respiratory: lungs clear, normal breath sounds, no respiratory distress, no accessory muscle use Extremities: normal range of motion, no pedal edema 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 Advise close follow-up with PCP in the next 2-3 days and return to the emergency Department immediately for new or worsening symptoms. Advised taking Benadryl home as needed for itching. Departure Impression Primary Impression: Hand, foot and mouth disease Disposition: HOME, SELF-CARE Condition: Stable Departure-Patient Inst. Decision time for Depature: 21:11 Referrals: BO MARTE MD (PCP/Family) Primary Care Physician Patient Instructions: Hand, Foot, and Mouth Disease (DC) Add. Discharge Instructions: Take the prescribed medicine as directed. As discussed take Benadryl at home as needed for itching. Return to the emergency Department immediately for new or worsening symptoms. The rash should get better on its own in the next few days to a week. Scripts Prednisone (Prednisone) 20 Mg Tab 40 MG PO DAILY for 4 Days, #8 TAB 0 Refills Prov: NELI CHRIS DO 03/06/20 NELI CHRIS DO Mar 06, 2020 21:12
[2020-03-06 21:14] VITALS: BP 125/65
== END 2020-03-06 21:35 | disposition home or self-care (01) ==
LOC: EDUNIT# 20:53 → ER FS 20:56
DX: B08.4 Enteroviral vesicular stomatitis with exanthem (principal); Z88.0 Allergy status to penicillin; Z77.22 Contact with and (suspected) exposure to environmental tobacco smoke (acute) (chronic)
CPT/HCPCS: 99282

== ENCOUNTER 2020-03-08 23:28 | Emergency (ER) | payer BC ==
[~2020-03-08] VITALS: Ht 154 cm; Wt 86.0 kg
[~2020-03-08 23:28] MED LIST changes: +PRD20T PO
--- OUTSIDE RECORDS SUMMARY | 2020-03-08 23:38 | XMS REPORT | Continuity of Care Document ---
Demographics Preferred Language Unknown Marital Status Unknown Advent Affiliation Unknown Race Unknown Ethnic Group Unknown Author Organization Unknown Address Unknown Phone Unavailable Allergies Active Description Code Type Severity Reaction Onset Reported/Identified Relationship to Patient Clinical Status Yes AMOXICILLIN SEVERE SEVERE Yes NO KNOWN DRUG ALLERGIES UNKNOWN NO KNOWN DRUG ALLERG Yes NO KNOWN DRUG ALLERGIES UNKNOWN UNKNOWN Yes No Known Drug Allergies [id number] Drug Allergy Unknown N/A 02/19/2018 Yes egg [id number] Drug Allergy Severe throat swelling 11/28/2018 Yes Penicillins [id number] Drug Aller gy Unknown N/A 11/19/2019 Yes amoxicillin [id number] Drug Aller gy Unknown N/A 03/06/2020 Medications Medication Packaging Start Date St op [...] Code Diagnosis Diagnosed By 02/20/2018 ROBERT RUFF MD, Ot A08. 4 VIRAL INTESTINAL INFECTION, UNSPECIFIED 02/20/2018 ROBERT RUFF MD Ot E03. 9 HYPOTHYROIDISM, UNSPECIFIED 02/20/2018 ROBERT RUFF MD Ot R11. 2 NAUSEA WITH VOMITING, UNSPECIFIED 02/20/2018 SPEEDY MD, ROBERT J Ot Z98.890 OTHER SPECIFIED POSTPROCEDURAL STATES 02/21/2018 SPEEDY DILLON, ROBERT J Ot A08. 4 VIRAL INTESTINAL INFECTION, UNSPECIFIED 02/21/2018 SPEEDY DILLON, ROBERT J Ot E03. 9 HYPOTHYROIDISM, UNSPECIFIED 02/21/2018 SPEEDY DILLON, ROBERT J Ot R11. 2 NAUSEA WITH VOMITING, UNSPECIFIED 02/21/2018 PSEEDY DILLON, ROBERT J Ot Z98.890 OTHER SPECIFIED POSTPROCEDURAL STATES 02/25/2018 SPEEDY DILLON, ROBERT J Ot A08. 4 VIRAL INTESTINAL INFECTION, UNSPECIFIED 02/25/2018 SPEEDY DILLNO, ROBERT J Ot E03. 9 HYPOTHYROIDISM, UNSPECIFIED [...] Edy Andrea W 466.0 ACUTE BRONCHITIS 10/08/2019 Edy Andrea J20.0 ACUTE BRONCHITIS DUE TO MYCOPLASMA PNEUMONIAE 10/08/2019 Edy Andrea M54.5 LOW BACK PAIN 10/08/2019 Howayek, Edy W R10.84 GENERALIZED ABDOMINAL PAIN 11/19/2019 ENYART , JON E Ot E86.0 DEHYDRATION 11/19/2019 ENYART , JON E Ot R10.8 4 GENERALIZED ABDOMINAL PAIN 11/19/2019 ENYART , JON E Ot R11.2 NAUSEA WITH VOMITING, UNSPECIFIED 11/19/2019 ENANGELART , JON E Ot Z77.2 2 CNTCT W AND EXPSR TO ENVIRON TOBACCO SMO 11/19/2019 ENANGELART , JON E Ot Z88.0 ALLERGY STATUS TO PENICILLIN 01/23/2020 ROVENSTINE DO, TRENTON L Ot R10.13 EPIGASTRIC PAIN 01/23/2020 ROVENSTINE DO, TRENTON L Ot Z77.22 CNTCT W AND EXPSR TO ENVIRON TOBACCO SMO 01/23/2020 ROVENSTINE DO, TRENTON L Ot Z88.0 ALLERGY STATUS TO PENICILLIN 01/25/2020 Edy Andrea W 535.00 ACUTE GASTRITIS, WITHOUT MENTION OF HEMORRHAGE 01/25/2020 Edy Andrea K29.00 ACUTE GASTRITIS WITHOUT BLEEDING 01/25/2020 Edy Andrea W 535.00 ACUTE GASTRITIS, WITHOUT MENTION OF HEMORRHAGE 01/25/2020 Edy Andrea W K29.00 ACUTE GASTRITIS WITHOUT BLEEDING 01/25/2020 Edy Andrea W 535.00 ACUTE GASTRITIS, WITHOUT MENTION OF HEMORRHAGE 01/25/2020 Edy Andrea W 794.8 NONSPECIFIC ABNORMAL RESULTS OF FUNCTION STUDY OF LIVER 01/25/2020 Edy Andrea K29.00 ACUTE GASTRITIS WITHOUT BLEEDING 01/25/2020 Edy Andrea R94.5 ABNORMAL RESULTS OF LIVER FUNCTION STUDIES 01/25/2020 Edy Andrea W 535.00 ACUTE GASTRITIS, WITHOUT MENTION OF HEMORRHAGE 01/25/2020 Edy Andrea W 794.8 NONSPECIFIC ABNORMAL RESULTS OF FUNCTION STUDY OF LIVER 01/25/2020 Edy Andrea W K29.00 ACUTE GASTRITIS WITHOUT BLEEDING 01/25/2020 Edy Andrea M54.5 LOW BACK PAIN 01/25/2020 Edy Andrea W R10.84 GENERALIZED ABDOMINAL PAIN 01/25/2020 Edy nAdrea W R94.5 ABNORMAL RESULTS OF LIVER FUNCTION STUDIES 01/26/2020 ROVENSTINE DO, TRENTON L Ot R10.13 EPIGASTRIC PAIN 01/26/2020 ROVENSTINE DO, TRENTON L Ot Z77.22 CNTCT W AND EXPSR TO ENVIRON TOBACCO SMO 01/26/2020 ROVENSTINE DO, TRENTON L Ot Z88.0 ALLERGY STATUS TO PENICILLIN 01/27/2020 [...] LEVELS OF OTHER SERUM ENZYMES 02/22/2020 ESTUARDO DILLON BO Alex Ot K76 .0 FATTY (CHANGE OF) LIVER, NOT ELSEWHERE C 02/22/2020 ESTUARDO DILLON BO M Ot R74 .8 ABNORMAL LEVELS OF OTHER SERUM ENZYMES 02/22/2020 ESTUARDO DILLON, BO M Ot K76 .0 FATTY (CHANGE OF) LIVER, NOT ELSEWHERE C 02/22/2020 ESTUARDO DILLON BO M Ot R74 .8 ABNORMAL LEVELS OF OTHER SERUM ENZYMES 02/23/2020 ESTUARDO DILLON BO M Ot R74 .8 ABNORMAL LEVELS OF OTHER SERUM ENZYMES 03/01/2020 ESTUARDO DILLON BO M Ot K76 .0 FATTY (CHANGE OF) LIVER, NOT ELSEWHERE C 03/01/2020 ESTUARDO DILLON BO M Ot R74 .8 ABNORMAL LEVELS OF OTHER SERUM ENZYMES 03/01/2020 ESTUARDO DILLON BO M Ot R74 .8 ABNORMAL LEVELS OF OTHER SERUM ENZYMES 03/06/2020 BO MARTE MD M Ot R10.13 EPIGASTRIC PAIN 03/06/2020 ESTUARDO DILLON BO M Ot R74 .8 ABNORMAL LEVELS OF OTHER SERUM ENZYMES 03/06/2020 ESTUARDO DILLON BO M Ot R74 .8 ABNORMAL LEVELS OF OTHER SERUM ENZYMES 03/06/2020 ESTUARDO DILLON BO M Ot K76 .0 FATTY (CHANGE OF) LIVER, NOT ELSEWHERE C 03/06/2020 ESTUARDO DILLON BO M Ot R74 .8 ABNORMAL LEVELS OF OTHER SERUM ENZYMES 03/06/2020 ESTUARDO DILLON BO M Ot R74 .8 ABNORMAL LEVELS OF OTHER SERUM ENZYMES 03/06/2020 ESTUARDO DILLON BO M Ot R10.13 EPIGASTRIC PAIN 03/06/2020 ESTUARDO DILLON BO M Ot R74 .8 ABNORMAL LEVELS OF OTHER SERUM ENZYMES 03/06/2020 ESTUARDO DILLON OB M Ot R74 .8 ABNORMAL LEVELS OF OTHER SERUM ENZYMES 03/06/2020 ESTUARDO DILLON BO M Ot K76 .0 FATTY (CHANGE OF) LIVER, NOT ELSEWHERE C 03/06/2020 ESTUARDO DILLON BO M Ot R74 .8 ABNORMAL LEVELS OF OTHER SERUM ENZYMES 03/06/2020 BO MARTE MD M Ot R74 .8 ABNORMAL LEVELS OF OTHER [...] - 11/03/16 08:33 Estradiol 105.1 pg/mL Thyroid Brumley Profile - 11/03/16 08:33 TSH 3.600 uIU/mL [...] Negative Urine-Blood Negative Negative Urine-Color Yellow Colorless-[place] ow Urine-Epithelial Cells 5-10/HPF Urine-Glucose Negative Negative Urine-Ketones Negative Negative Urine-Leukocytes Negative Negative Urine-Nitrite Negative Negative Urine-Other Urine Saved if Culture Need ed (48hrs from time of collection) Urine-pH 7.0 5-8.5 Urine-Protein Negative Negative Urine-RBC Negative Urine-Specific Mallory 1.025 1.000-1 .030 Urine-WBC Rare/HPF Urobilinogen 0.2 [...] 7-25 CREATININE 1.04 mg/dL 0.50-1.10 eGFR NON-AFR. [place] 76 mL/min/1.73m2 > OR = 60 eGFR [...] 7-25 CREATININE 0.90 mg/dL 0.50-1.10 eGFR NON-AFR. [place] 91 mL/min/1.73m2 > OR = 60 eGFR [...] INFLUENZA A AND B ANTIGENS BY IA NR THYROID PEROXIDASE ANTIBODIES - 12/02/19 12:14 THYROID PEROXIDASE ANTIBODIES 593 IU/mL <9 Gamma Glutamyl Transferase - 01/25/20 06 :15 GGT 135 U/L 5-40 Urinalysis - 01/25/20 06:43 Icotest N/A Negative Urine Volume Urine Volume Sufficient (10mL) Urine Yeast No Yeast present Urine-Appearance Slightly Cloudy Clear Urine-Bacteria 3+ Urine-Bilirubin Negative Negative Urine-Blood Negative Negative Urine-Color Yellow Colorless-[place] Urine-Epithelial Cells 10-20/HPF Urine-Glucose Negative Negative Urine-Ketones Negative Negative Urine-Leukocytes Negative Negative Urine-Nitrite Negative Negative Urine-Other Urine Saved if Culture Need ed (48hrs from time of collection) Urine-pH 5.0 5-8.5 Urine-Protein Negative Negative Urine-RBC 0-2/HPF Urine-Specific Mallory >=1.030 1.000-1 .030 Urine-WBC 2-5/HPF Urobilinogen 0.2 E.U./dL 0.2-1.0 Lipase - 01/26/20 10:20 Lipase 32 U/L 7-59 Encounters ACCT No. Visit Date/Time Discharge Status Pt. Type Provider Facility Loc./Unit Complaint [id number] 11/08/2016 03:06:00 Document Registration [id number] 03/06/2020 20:56:00 21:35:00 DIS Emergency NELI CAM ARIES Wright [facility] ER FS RASH [id number] 02/10/2020 09:28:00 23:59:59 CLS Outpatient BO MARTE MD [facility] RAD FS RUQ ABD PAIN,ELEVATED L IVER ENZYMES [id number] 02/09/2020 10:41:00 23:59:59 CLS Outpatient BO MARTE MD [facility] LAB FS CMP [id number] 01/30/2020 09:25:00 23:59:59 CLS Outpatient BO MARTE MD [facility] LAB FS CMP [id number] 01/26/2020 15:05:00 23:59:59 CLS Outpatient BO MARTE MD [facility] LAB FS ELEVATED LIVER ENZYMES [id number] 01/23/2020 15:29:00 23:59:59 CLS Outpatient ESTUARDO DILLON, BO Johnson [facility] LAB FS R10.13 [id number] 01/23/2020 09:21:00 09:55:00 DIS Emergency SMITAVENTRENTON NUR DO [facility] ER FS ABD PAIN [id number] 11/19/2019 07:50:00 10:43:00 DIS Emergency DELMI DILLON, JON Celestin [facility] ER FS VOMITING [id number] 07/09/2019 16:05:00 17:47:00 DIS Emergency ARIES QUINTEROS DO [facility] ER FS DIARRHEA, STOMACH PAIN [id number] 11/28/2018 10:56:00 13:55:00 DIS Emergency ARNEL DILLON, GABRIELA Johnson [facility] ER FS CHEST PAIN,DIZZY [id number] 02/19/2018 21:35:00 00:15:00 DIS Emergency SPEEDY DILLON, ROBERT Marcial [facility] ER VOMITING [id number] 01/28/2020 08:00:00 01/28/2020 23:59: 59 CLS Outpatient NGOZI [facility] [id number] 12/02/2019 11:00:00 Document Registration [id number] 08/21/2019 14:15:00 Document Registration [id number] 06/10/2019 15:15:00 Document Registration [id number] 12/12/2018 15:00:00 Document Registration [id number] 01/26/2020 10:14:00 01/26/2020 23:59 :00 DIS Outpatient BO MARTE [id number] 01/25/2020 05:24:00 01/25/2020 07:55 :00 [id number] 10/08/2019 16:55:00 10/08/2019 18:05 :[id number]/16/2018 11:48:00 09/16/2018 14:16: 00 DIS Outpatient Emre [facility] ER [id number] 09/16/2018 12:30:10 Document Registration
[2020-03-08] MEDS ORDERED: ACETAMINOPHEN 500 MG TAB (TYLENOL) PO ONE (23:45)
[2020-03-08] MEDS ORDERED: METOCLOPRAMIDE INJ 10 MG/2 ML (REGLAN) IVP ONE (23:45)
[2020-03-08] MEDS ORDERED: KETOROLAC 30 MG/ML VIAL IVP ONE (23:45)
[2020-03-08] MEDS ORDERED: diphenhydrAMINE 50 MG/ML INJ (BENADRYL) IVP ONE (23:45)
[2020-03-08] MEDS ORDERED: NS IV 1000 ML 1,000 ML IV SCH (23:45)
--- NOTE | 2020-03-08 23:46 | ED EENT ---
History of Present Illness General Stated Complaint: SORE THROAT,HEADACHE,LIGH HEADED,DIZZY Source: patient Exam Limitations: no limitations History of Present Illness Date Seen by Provider: Mar 08, 2020 Time Seen by Provider: 23:35 Initial Comments The patient is a pleasant 24-year-old female who presents for evaluation of sore throat, fever, lightheadedness, and nausea over the last 1-2 days. She was seen here a few days ago and was diagnosed with lcwi-ymmo-lji-mouth disease. She is alert and oriented 4, calm, and appears to be in no distress. She says that she contacted her physician who called in a nausea medication but that this was not helping very much. She also has a headache. She is noted to be febrile with tem perature 101.4F upon arrival. She denies cough or shortness of breath, abdominal pain, neck pain or stiffness, vision changes, diarrhea, urinary complaints, or syncope. Timing/Duration: gradual Severity: moderate Prearrival Treatment: no prearrival treatment Associated Symptoms: fever, sore throat Allergies and Home Medications Allergies Coded Allergies: egg (Unverified Allergy, Severe, throat swelling, 11/28/18) amoxicillin (Verified Allergy, Unknown, 03/06/20) Penicillins (Unverified Adverse Reaction, Unknown, 11/19/19) Home Medications Dicyclomine HCl 20 Mg Tablet, 20 MG PO Q6H PRN for abdominal pain Prescribed by: JON AWAD on 11/19/19 1034 Famotidine 20 Mg Tablet, 20 MG PO BID Prescribed by: TRENTON PIERCE on 01/23/20 0948 Ondansetron 4 Mg Tab.rapdis, 4 MG PO Q6H PRN for NAUSEA/VOMITING Prescribed by: JON AWAD on 11/19/19 1034 Prednisone 20 Mg Tab, 40 MG PO DAILY Prescribed by: NELI CHRIS on 03/06/20 2112 Patient Home Medication List Home Medication List Reviewed: Yes Review of Systems Review of Systems Constitutional: fever Eyes: No Symptoms Reported Ears: No Symptoms Reported Nose: no symptoms reported Mouth: no symptoms reported Throat: pain Respiratory: no symptoms reported Cardiovascular: no symptoms reported Gastrointestinal: nausea Musculoskeletal: no symptoms reported Skin: no symptoms reported Neurological: No Symptoms Reported Hematologic/Lymphatic: No Symptoms Reported Immunological/Allergic: no symptoms reported All Other Systems Reviewed Negative Unless Noted: Yes Past Dmpjadh-Ukfnps-Uppagc Hx Past Med/Social Hx: Reviewed Nursing Past Med/Soc Hx Patient Social History 2nd Hand Smoke Exposure: Yes Recent Foreign Travel: No Contact w/Someone Who Travel: No Recent Hopitalizations: No Immunizations Up To Date Tetanus Booster (TDap): Unknown PED Vaccines UTD: Yes Seasonal Allergies Seasonal Allergies: No Past Medical History Surgeries: Yes Adenoidectomy, Gallbladder, Tonsillectomy Respiratory: No Cardiac: No Neurological: No Genitourinary: No Gastrointestinal: No Musculoskeletal: No Endocrine: Yes Hypothyroidsim HEENT: No Cancer: No Psychosocial: No Integumentary: No Blood Disorders: No Physical Exam Vital Signs Vital Signs - First Documented 03/08/20 23:55 Temp 38.6 Pulse 108 Resp 16 B/P (MAP) 138/78 (98) Pulse Ox 98 O2 Delivery Room Air Height, Weight, BMI Height: 5'1.00" Weight: 170lbs. oz. 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, no motor/sensory deficits, alert, normal mood/affect, oriented x 3 Skin: normal color, warm/dry Progress/Results/Core Measures Results/Orders Lab Results Laboratory Tests Test 03/08/20 23:53 Range/Units Group A Streptococcus Screen NEGATIVE NEGATIVE My Orders Orders - NELI CHRIS DO Rapid Strep A Screen (03/08/20 23:30) Ns Iv 1000 Ml (Sodium Chloride 0.9%) (03/08/20 23:45) Ketorolac Injection (Toradol Injection) (03/08/20 23:45) Metoclopramide Injection (Reglan Injecti (03/08/20 23:45) Diphenhydramine Injection (Benadryl Inje (03/08/20 23:45) Acetaminophen Tablet (Tylenol Tablet) (03/08/20 23:45) Medications Given in ED Current Medications Medications Dose Ordered Sig/Eduardo Route Start Time Stop Time Status Last Admin Dose Admin Diphenhydramine HCl 25 mg ONCE ONCE IVP 03/08/20 23:45 03/08/20 23:46 DC 03/08/20 23:47 25 MG Ketorolac Tromethamine 30 mg ONCE ONCE IVP 03/08/20 23:45 03/08/20 23:46 DC 03/08/20 23:48 30 MG Metoclopramide HCl 10 mg ONCE ONCE IVP 03/08/20 23:45 03/08/20 23:46 DC 03/08/20 23:47 10 MG Vital Signs/I&O 03/08/20 23:55 Temp 38.6 Pulse 108 Resp 16 B/P (MAP) 138/78 (98) Pulse Ox 98 O2 Delivery Room Air Progress Progress Note : Progress Note @0025 - patient updated on lab results which are negative. She has no additional complaints and has not vomited since arrival. Advised patient that most of her symptoms are likely related to the nhzl-phzu-mqw-mouth disease and advise continuing to stay home and to drink plenty of fluids and take antipyretics as needed. The patient expresses verbal understanding and agreement with the plan and is stable for discharge. Departure Impression Primary Impression: Hand, foot, and mouth disease Additional Impression: Viral pharyngitis Disposition: 01 HOME, SELF-CARE Condition: Stable Departure-Patient Inst. Decision time for Depature: 00:28 Referrals: BO MARTE MD (PCP/Family) Primary Care Physician Patient Instructions: Hand, Foot, and Mouth Disease (DC), Viral Pharyngitis Add. Discharge Instructions: Take Tylenol or ibuprofen at home for pain and/or fever relief as directed. Return to the emergency Department immediately for new or worsening symptoms. Follow-up with your doctor next 2-3 days. Scripts Ondansetron (Ondansetron Odt) 4 Mg Tab.rapdis 4 MG PO Q6H PRN for NAUSEA/VOMITING, #20 TAB 0 Refills Prov: NELI CHRIS DO 03/09/20 NELI CRHIS DO Mar 08, 2020 23:46
[2020-03-09] MEDS ORDERED: ONDA4TAB11 PO (00:28)
[2020-03-09 00:41] VITALS: BP 100/72
== END 2020-03-09 00:44 | disposition home or self-care (01) ==
LOC: EDUNIT# 23:28 → ER FS 23:30
DX: B08.4 Enteroviral vesicular stomatitis with exanthem (principal); J02.9 Acute pharyngitis, unspecified; R51 Headache; Z88.0 Allergy status to penicillin; Z77.22 Contact with and (suspected) exposure to environmental tobacco smoke (acute) (chronic)
CPT/HCPCS: 87430; 96361; 96374; 96375

== ENCOUNTER → 2020-03-12 | Outpatient (CLI) | payer BC | LOC: LAB FS 09:35 | PROVIDERS: ATTEND Family Medicine | DX: R50.9 Fever, unspecified (principal); Z20.828 Contact with and (suspected) exposure to other viral communicable diseases | CPT/HCPCS: 87635 ==

== ENCOUNTER 2020-05-25 17:50 | Emergency (ER) | payer OTHER, BC ==
[~2020-05-25] VITALS: Ht 154.9 cm; Wt 88.9 kg
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
[2020-05-25] MEDS ORDERED: CYCL10TA9 PO ×2 (18:25→18:53)
[2020-05-25] MEDS ORDERED: LEVO-130 (18:42)
[2020-05-25] MEDS ORDERED: SUCR1TAB (18:42)
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
[2020-05-25 19:05] VITALS: BP 124/67
== END 2020-05-25 19:05 | disposition home or self-care (01) ==
LOC: EDUNIT# 17:50 → ER FS 17:51
DX: S16.1XXA Strain of muscle, fascia and tendon at neck level, initial encounter (principal); Z88.0 Allergy status to penicillin; Z88.1 Allergy status to other antibiotic agents; Z20.828 Contact with and (suspected) exposure to other viral communicable diseases; V89.2XXA Person injured in unspecified motor-vehicle accident, traffic, initial encounter
CPT/HCPCS: 72125

== ENCOUNTER 2020-08-18 19:10 | Emergency (ER) | payer BC, OTHER ==
[~2020-08-18] VITALS: Ht 160 cm; Wt 89.8 kg
[~2020-08-18 19:10] MED LIST changes: +CYCL10TA9 PO; +LEVO-130; +SUCR1TAB
[2020-08-18] MEDS ORDERED: HYDROcodone/APAP 5 MG/325 MG (LORTAB) TAB PO ONE (19:45)
[2020-08-18] MEDS ORDERED: KETOROLAC 30 MG/ML VIAL IVP ONE (19:45)
[2020-08-18] MEDS ORDERED: ONDANSETRON 4 MG/2 ML (SDV) Z0FRAN IVP ONE (19:45)
[2020-08-18] MEDS ORDERED: NS IV 1000 ML 1,000 ML IV SCH (19:45)
[2020-08-18 19:57] LABS: CLARITY,URINE CLEAR; COLOR,URINE YELLOW; GLUCOSE, URINE (UA) NEGATIVE (NEGATIVE); PROTEIN,URINE NEGATIVE (NEGATIVE)
[2020-08-18 19:58] LABS: BACTERIA,URINE NEGATIVE /HPF; BILIRUBIN,URINE NEGATIVE (NEGATIVE); KETONES,URINE NEGATIVE (NEGATIVE); LEUKOCYTE ESTERASE ,URINE NEGATIVE (NEGATIVE); NITRITE,URINE NEGATIVE (NEGATIVE)
[2020-08-18] MEDS ORDERED: IOHEXOL 350 MG/ML 100 ML (OMNIPAQUE 350) VIAL IV ONE (20:15)
[2020-08-18] MEDS ORDERED: NS 100 ML (IVPB) BAG IV ONE (20:15)
[2020-08-18] MEDS ORDERED: HOLD METFORMIN - RECEIVED CONTRAST 20 ML VIAL IV SCH (20:15)
--- NOTE | 2020-08-18 20:21 | ED General ---
General Chief Complaint: Abdominal/GI Problems Stated Complaint: LOWER BACK PAIN,NAUSEA,LIGHTHEADED Nursing Triage Note: pt c/o back pain, lower mid X1 week with nausea, bodyaches and loose stool X1 hour ago. Nursing Sepsis Screen: No Definite Risk History of Present Illness Date Seen by Provider: Aug 18, 2020 Time Seen by Provider: 20:18 Initial Comments Patient presenting to emergency department for evaluation of back pain abdominal pain nausea arthralgias myalgias and loose stools that have started earlier today. She says she has had off-and-on issues for 1 week or she has felt li ghtheaded with these symptoms as well but she feels worse since today. She has had nausea but no vomiting and no measured fevers but she feels chills. She says the pain is in the bilateral flanks and radiates to the bilateral upper quadrants and is present constantly and nothing makes it better or worse that she can think of. She says the diarrhea is nonbloody and she has not been on antibiotics recently. She is in no obvious distress with normal vital signs. Allergies and Home Medications Allergies Coded Allergies: egg (Unverified Allergy, Severe, throat swelling, 11/28/18) amoxicillin (Verified Allergy, Unknown, 03/06/20) Penicillins (Unverified Adverse Reaction, Unknown, 11/19/19) Home Medications Cyclobenzaprine HCl 10 Mg Tablet, 10 MG PO Q8H PRN for SPASMS Prescribed by: TRENTON PIERCE on 05/25/20 0872 Patient Home Medication List Home Medication List Reviewed: Yes Review of Systems Review of Systems Constitutional: chills, dizziness, malaise, weakness EENTM: no symptoms reported Respiratory: no symptoms reported Cardiovascular: no symptoms reported Gastrointestinal: abdominal pain, diarrhea, nausea Genitourinary: no symptoms reported Musculoskeletal: back pain Skin: no symptoms reported Psychiatric/Neurological: No Symptoms Reported All Other Systems Reviewed Negative Unless Noted: Yes Past Piiiqbl-Blzwnj-Qygtva Hx Patient Social History 2nd Hand Smoke Exposure: Yes Recent Foreign Travel: No Contact w/Someone Who Travel: No Recent Infectious Disease Expo: No Recent Hopitalizations: No Physical Abuse: No Sexual Abuse: No Mistreated: No Fear: No Immunizations Up To Date Tetanus Booster (TDap): Unknown PED Vaccines UTD: Yes Seasonal Allergies Seasonal Allergies: No Past Medical History Surgeries: Yes Adenoidectomy, Eye Surgery, Gallbladder, Tonsillectomy Respiratory: No Cardiac: No Neurological: No Last Menstrual Period: Aug 13, 2020 Genitourinary: No Gastrointestinal: Yes Gastroesophageal Reflux Musculoskeletal: No Endocrine: Yes Hypothyroidsim HEENT: No Cancer: No Psychosocial: Yes Anxiety, Depression Integumentary: No Blood Disorders: No Physical Exam Vital Signs Vital Signs - First Documented 08/18/20 19:15 Temp 36.5 Pulse 83 Resp 14 B/P (MAP) 113/68 (83) Pulse Ox 99 O2 Delivery Room Air Capillary Refill : Less Than 3 Seconds Height, Weight, BMI Height: 5'1.00" Weight: 170lbs. oz. 77.474780hi; 35.00 BMI Method:Stated General Appearance: No Apparent Distress, WD/WN HEENT: PERRL/EOMI Neck: Supple Respiratory: Lungs Clear, No Respiratory Distress Cardiovascular: Regular Rate, Rhythm Gastrointestinal: Soft, Tenderness (bilateral upper quadrants with no rebound or guarding) Back: CVA Tenderness (L), CVA Tenderness (R) Extremity: Normal Capillary Refill Neurologic/Psychiatric: Alert, Oriented x3 Skin: Warm/Dry Progress/Results/Core Measures Suspected Sepsis Recent Fever Within 48 Hours: No Infection Criteria Present: None New/Unexplained Altered Menta: No Sepsis Screen: No Definite Risk SIRS Temperature: Pulse: 83 Respiratory Rate: 14 Laboratory Tests 08/18/20 19:50: White Blood Count 10.6 Blood Pressure 113 /68 Mean: 83 Laboratory Tests 08/18/20 19:50: Creatinine 1.06, Platelet Count 293, Total Bilirubin 0.2 Results/Orders Lab Results Laboratory Tests Test 08/18/20 19:15 08/18/20 19:50 Range/Units Urine Color YELLOW Urine Clarity CLEAR Urine pH 6.0 5-9 Urine Specific [place] >=1.030 1.016-1.022 Urine Protein NEGATIVE NEGATIVE Urine Glucose (UA) NEGATIVE NEGATIVE Urine Ketones NEGATIVE NEGATIVE Urine Nitrite NEGATIVE NEGATIVE Urine Bilirubin NEGATIVE NEGATIVE Urine Urobilinogen 0.2 < = 1.0 MG/DL Urine Leukocyte Esterase NEGATIVE NEGATIVE Urine RBC (Auto) NEGATIVE NEGATIVE Urine RBC NONE /HPF Urine WBC NONE /HPF Urine Squamous Epithelial Cells 5-10 /HPF Urine Crystals NONE /LPF Urine Bacteria NEGATIVE /HPF Urine Casts NONE /LPF Urine Mucus NEGATIVE /LPF Urine Culture Indicated NO Urine Test NEGATIVE NEGATIVE White Blood Count 10.6 4.3-11.0 10^3/uL Red Blood Count 4.49 4.35-5.85 10^6/uL Hemoglobin 13.4 11.5-16.0 G/DL Hematocrit 39 35-52 % Mean Corpuscular Volume 87 80-99 FL Mean Corpuscular Hemoglobin 30 25-34 PG Mean Corpuscular Hemoglobin Concent 34 32-36 G/DL Red Cell Distribution Width 12.1 10.0-14.5 % Platelet Count 293 130-400 10^3/uL Mean Platelet Volume 10.3 7.4-10.4 FL Immature Granulocyte % (Auto) 0 % Neutrophils (%) (Auto) 59 42-75 % Lymphocytes (%) (Auto) 33 12-44 % Monocytes (%) (Auto) 6 0-12 % Eosinophils (%) (Auto) 2 0-10 % Basophils (%) (Auto) 0 0-10 % Neutrophils # (Auto) 6.2 1.8-7.8 X 10^3 Lymphocytes # (Auto) 3.5 1.0-4.0 X 10^3 Monocytes # (Auto) 0.6 0.0-1.0 X 10^3 Eosinophils # (Auto) 0.2 0.0-0.3 10^3/uL Basophils # (Auto) 0.0 0.0-0.1 10^3/uL Immature Granulocyte # (Auto) 0.0 0.0-0.1 10^3/uL Sodium Level 138 135-145 MMOL/L Potassium Level 4.0 3.6-5.0 MMOL/L Chloride Level 104 98-107 MMOL/L Carbon Dioxide Level 26 21-32 MMOL/L Anion Gap 8 5-14 MMOL/L Blood Urea Nitrogen 18 7-18 MG/DL Creatinine 1.06 0.60-1.30 MG/DL Estimat Glomerular Filtration Rate > 60 BUN/Creatinine Ratio 17 Glucose Level 90 70-105 MG/DL Calcium Level 9.6 8.5-10.1 MG/DL Corrected Calcium 9.4 8.5-10.1 MG/DL Total Bilirubin 0.2 0.1-1.0 MG/DL Aspartate Amino Transf (AST/SGOT) 13 5-34 U/L Alanine Aminotransferase (ALT/SGPT) 10 0-55 U/L Alkaline Phosphatase 80 40-136 U/L Total Protein 7.1 6.4-8.2 GM/DL Albumin 4.3 3.2-4.5 GM/DL Lipase 34 8-78 U/L Micro Results Microbiology 08/18/20 Influenza Types A,B Antigen ([facility]) - Final, Complete My Orders Orders - IZABELLA TIDWELL DO Influenza A And B Antigens (08/18/20 19:24) Urinalysis (08/18/20 19:24) Hcg,Qualitative Urine (08/18/20 19:24) Cbc With Automated Diff (08/18/20 19:43) Comprehensive Metabolic Panel (08/18/20 19:43) Lipase (08/18/20 19:43) Iv/Invasive Line Insertion .IV start (08/18/20 19:43) Ct Abdomen/Pelvis W (08/18/20 19:43) Coronavirus Sars-Cov-2 So 2018 (08/18/20 19:43) Ketorolac Injection (Toradol Injection) (08/18/20 19:45) Hydrocodone/Apap 5/325 Tablet (Lortab 5 (08/18/20 19:45) Ondansetron Injection (Zofran Injectio (08/18/20 19:45) Ns Iv 1000 Ml (Sodium Chloride 0.9%) (08/18/20 19:45) Iohexol Injection (Omnipaque 350 Mg/Ml 1 (08/18/20 20:15) Received Contrast (Hold Metformin- Contr (08/18/20 20:15) Ns (Ivpb) (Sodium Chloride 0.9% Ivpb Bag (08/18/20 20:15) Medications Given in ED Current Medications Medications Dose Ordered Sig/Eduardo Route Start Time Stop Time Status Last Admin Dose Admin Acetaminophen/ Hydrocodone Bitart 2 tab ONCE ONCE PO 08/18/20 19:45 08/18/20 19:46 DC 08/18/20 20:03 2 TAB Iohexol 100 ml ONCE ONCE IV 08/18/20 20:15 08/18/20 20:16 DC 08/18/20 20:32 100 ML Ketorolac Tromethamine 15 mg ONCE ONCE IVP 08/18/20 19:45 08/18/20 19:46 DC 08/18/20 20:03 15 MG Ondansetron HCl 4 mg ONCE ONCE IVP 08/18/20 19:45 08/18/20 19:46 DC 08/18/20 20:04 4 MG Sodium Chloride 100 ml ONCE ONCE IV 08/18/20 20:15 08/18/20 20:16 DC 08/18/20 20:32 80 ML Vital Signs/I&O 08/18/20 19:15 Temp 36.5 Pulse 83 Resp 14 B/P (MAP) 113/68 (83) Pulse Ox 99 O2 Delivery Room Air Capillary Refill : Less Than 3 Seconds Blood Pressure Mean: 83 Progress Note : Progress Note Will check labs imaging treat symptoms and reassess. Workup is completely negative for acute process and patient is able to tolerate fluids without difficulty and her repeat abdominal exam is benign so I will discharge her in stable condition told her to drink plenty of fluids take any liquid diet no prescribe her Zofran for nausea and Prilosec for possible gastritis and have her follow primary care provider within 2 days and come back to the ED sooner with worsening pain fevers vomiting or other general concerns. Patient aware and agreeable with plan and verbalized understanding of the above instructions. Departure Impression Primary Impression: Abdominal pain Qualified Codes: R10.10 - Upper abdominal pain, unspecified Additional Impression: Back pain Disposition: HOME, SELF-CARE Condition: Stable Departure-Patient Inst. Referrals: BO MARTE MD (PCP/Family) Primary Care Physician Patient Instructions: Severe Abdominal Pain, Adult (DC) Scripts Omeprazole Magnesium (Prilosec Otc) 20 Mg Tablet. 20 MG PO DAILY, #14 TAB Prov: IZABELLA TIDWELL DO 08/18/20 Ondansetron (Ondansetron Odt) 4 Mg Tab.rapdis 4 MG PO Q6H, #10 TAB Prov: IZABELLA TIDWELL DO 08/18/20 IZABELLA TIDWELL DO Aug 18, 2020 20:21
--- NOTE | 2020-08-18 20:42 | Diagnostic Imaging Report ---
EXAMINATION: CT Abdomen and Pelvis with intravenous contrast. TECHNIQUE: Multiple contiguous axial images were obtained through the abdomen and pelvis after the uneventful administration of intravenous contrast. All CT scans use one or more of the following dose optimizing techniques: automated exposure control, MA and/or KvP adjustment based on a patient size and exam type, or iterative reconstruction. HISTORY: Upper abdominal pain. COMPARISON: None available. FINDINGS: Lung bases: The lung bases are clear. Solid organs: The liver is normal without focal lesion. The gallbladder is surgically absent. There is no biliary ductal dilation. Pancreas is normal. Spleen is normal. Adrenal glands are normal. The kidneys are normal without hydronephrosis. Bowel: The stomach and small bowel are normal without obstruction. The colon and appendix are normal. Peritoneum: Trace free fluid in the pelvis. No intra-abdominal free air. No suspicious lymphadenopathy. Vasculature: Normal without aneurysm. Musculoskeletal: No suspicious osseous lesion or compression fracture. Pelvis: The uterus and adnexa are normal. The urinary bladder is normal. IMPRESSION: 1. No acute abnormality in the abdomen or pelvis. Dictated by: Dictated on workstation # [id number]
[2020-08-18 20:46] LABS: HEMATOCRIT 39 % (35-52); HEMOGLOBIN 13.4 G/DL (11.5-16.0); MEAN CORPUSCULAR HEMOGLOBIN 30 PG (25-34); MEAN CORPUSCULAR HGB CONC 34 G/DL (32-36); MEAN CORPUSCULAR VOLUME 87 FL (80-99); WHITE BLOOD COUNT 10.6 10^3/uL (4.3-11.0)
[2020-08-18 20:47] LABS: BASOPHILS % (AUTO) 0 % (0-10); EOSINOPHILS # (AUTO) 0.2 10^3/uL (0.0-0.3); EOSINOPHILS % (AUTO) 2 % (0-10); LYMPHOCYTES # (AUTO) 3.5 X 10^3 (1.0-4.0); LYMPHOCYTES % (AUTO) 33 % (12-44); MEAN PLATELET VOLUME 10.3 FL (7.4-10.4); MONOCYTES # (AUTO) 0.6 X 10^3 (0.0-1.0); MONOCYTES % (AUTO) 6 % (0-12); NEUTROPHILS # (AUTO) 6.2 X 10^3 (1.8-7.8); NEUTROPHILS % (AUTO) 59 % (42-75); PLATELET COUNT 293 10^3/uL (130-400)
[2020-08-18 21:30] LABS: ALANINE AMINOTRANSFERASE 10 U/L (0-55); ALBUMIN 4.3 GM/DL (3.2-4.5); ALKALINE PHOSPHATASE 80 U/L (40-136); BILIRUBIN,TOTAL 0.2 MG/DL (0.1-1.0); BUN/CREATININE RATIO 17; CALCIUM 9.6 MG/DL (8.5-10.1); CARBON DIOXIDE 26 MMOL/L (21-32); CHLORIDE 104 MMOL/L (98-107); CREATININE SERUM 1.06 MG/DL (0.60-1.30); GFR ESTIMATED > 60; GLUCOSE 90 MG/DL (70-105); LIPASE 34 U/L (8-78); SODIUM 138 MMOL/L (135-145); TOTAL PROTEIN 7.1 GM/DL (6.4-8.2)
[2020-08-18] MEDS ORDERED: ONDA4TAB11 PO (21:44)
[2020-08-18] MEDS ORDERED: OMEP20TA33 PO (21:44)
[2020-08-18 21:45] VITALS: BP 118/68
== END 2020-08-18 21:55 | disposition home or self-care (01) ==
LOC: EDUNIT# 19:10 → ER FS 19:11
DX: R10.10 Upper abdominal pain, unspecified (principal); M54.9 Dorsalgia, unspecified; Z88.0 Allergy status to penicillin; Z88.1 Allergy status to other antibiotic agents; Z77.22 Contact with and (suspected) exposure to environmental tobacco smoke (acute) (chronic)
CPT/HCPCS: 36415; 74177; 80053; 81000; 83690; 84703; 85025; 87804 ×2; 99284; U0002; 87635

== ENCOUNTER 2020-10-02 11:36 | Emergency (ER) | payer BC ==
[~2020-10-02] VITALS: Ht 154 cm; Wt 88.0 kg
[~2020-10-02 11:36] MED LIST changes: +OMEP20TA33 PO
[2020-10-02 11:45] VITALS: BP 111/83
[2020-10-02] MEDS ORDERED: ONDA4TAB11 PO (11:47)
--- NOTE | 2020-10-02 11:49 | ED GI ---
General Chief Complaint: Abdominal/GI Problems Stated Complaint: VOMITING; SOB Source of Information: Patient History of Present Illness Date Seen by Provider: Oct 02, 2020 Time Seen by Provider: 11:47 Initial Comments 24-year-old female with history of intermittent nausea and vomiting presents with onset of nausea the past couple days, states she vomited last night after taking the Zofran and is now out of medication. Her doctor prescribed her Zofran a few months ago for similar symptoms. She denies any recent fever or chills, cough or shortness of air. Denies abdominal pain, back or flank pain. Denies any possibility of . Allergies and Home Medications Allergies Coded Allergies: egg (Unverified Allergy, Severe, throat swelling, 11/28/18) amoxicillin (Verified Allergy, Unknown, 03/06/20) Penicillins (Unverified Adverse Reaction, Unknown, 11/19/19) Home Medications Cyclobenzaprine HCl 10 Mg Tablet, 10 MG PO Q8H PRN for SPASMS Prescribed by: TRENTON PIERCE on 05/25/20 185 Omeprazole Magnesium 20 Mg Tablet.dr, 20 MG PO DAILY Prescribed by: IZABELLA TIDWELL on 08/18/202143 Ondansetron 4 Mg Tab.rapdis, 4 MG PO Q6H Prescribed by: IZABELLA TIDWELL on 08/18/202143 Ondansetron 4 Mg Tab.rapdis, 4 MG PO TID Prescribed by: TRENTON PIERCE on 10/02/20 1147 Patient Home Medication List Home Medication List Reviewed: Yes Review of Systems Review of Systems Constitutional: see HPI; No chills, No dizziness, No fever, No malaise, No weakness EENTM: No Symptoms Reported Respiratory: Denies Cough, Denies Shortness of Air Cardiovascular: Denies Chest Pain, Denies Edema, Denies Palpitations, Denies Syncope Gastrointestinal: Denies Abdominal Pain, Denies Constipated, Denies Diarrhea; Nausea, Vomiting Musculoskeletal: No back pain, No joint pain Skin: No change in color, No rash Past Jawpojl-Fcvmhd-Oaohzw Hx Past Med/Social Hx: Reviewed Nursing Past Med/Soc Hx Patient Social History Alcohol Use: Denies Use Smoking Status: Never a Smoker 2nd Hand Smoke Exposure: Yes Recent Hopitalizations: No Immunizations Up To Date Tetanus Booster (TDap): Unknown PED Vaccines UTD: Yes Seasonal Allergies Seasonal Allergies: No Past Medical History Surgeries: Yes Adenoidectomy, Eye Surgery, Gallbladder, Tonsillectomy Respiratory: No Cardiac: No Neurological: No Genitourinary: No Gastrointestinal: Yes Gastroesophageal Reflux Musculoskeletal: No Endocrine: Yes Hypothyroidsim HEENT: No Cancer: No Psychosocial: Yes Anxiety, Depression Integumentary: No Blood Disorders: No Physical Exam Vital Signs Vital Signs - First Documented 10/02/20 11:45 Temp 36.5 Pulse 87 Resp 17 B/P (MAP) 111/83 (92) Pulse Ox 98 O2 Delivery Room Air Capillary Refill : Height/Weight/BMI Height: 5'1.00" Weight: 170lbs. oz. 77.792174uq; 35.00 BMI Method:Stated General Appearance: WD/WN, no apparent distress Respiratory: chest non-tender, lungs clear, normal breath sounds, no respiratory distress, no accessory muscle use Cardiovascular: regular rate, rhythm, no edema, no JVD Gastrointestinal: non tender, soft, no organomegaly Extremities: non-tender, no pedal edema Back: no CVA tenderness, no vertebral tenderness Neurologic/Psychiatric: alert, normal mood/affect Skin: normal color, warm/dry Progress/Results/Core Measures Results/Orders Vital Signs/I&O 10/02/20 11:45 Temp 36.5 Pulse 87 Resp 17 B/P (MAP) 111/83 (92) Pulse Ox 98 O2 Delivery Room Air Departure Impression Primary Impression: Nausea and vomiting Qualified Codes: R11.2 - Nausea with vomiting, unspecified Disposition: 01 HOME, SELF-CARE Condition: Stable Departure-Patient Inst. Decision time for Depature: 11:47 Referrals: BO MARTE MD (PCP/Family) Primary Care Physician Patient Instructions: Nausea and Vomiting, Adult Add. Discharge Instructions: See Dr Marte for a follow up appointment next week if you are not feeling better, sooner if worse. All discharge instructions reviewed with patient and/or family. Voiced understanding. Scripts Ondansetron (Ondansetron Odt) 4 Mg Tab.rapdis 4 MG PO TID for Nausea, #10 TAB Prov: TRENTON PIERCE DO 10/02/20 Work/School Note: Work Release Form Date Seen in the Emergency Department: Oct 02, 2020 Return to Work: Oct 02, 2020 Restrictions: No Restrictions ROVENSTINE,TRENTON L DO Oct 02, 2020 11:48
== END 2020-10-02 11:50 | disposition home or self-care (01) ==
LOC: EDUNIT# 11:36 → ER FS 11:37
DX: R11.2 Nausea with vomiting, unspecified (principal); K21.9 Gastro-esophageal reflux disease without esophagitis; Z88.0 Allergy status to penicillin; Z88.1 Allergy status to other antibiotic agents; Z77.22 Contact with and (suspected) exposure to environmental tobacco smoke (acute) (chronic)
CPT/HCPCS: 99282

== ENCOUNTER 2021-08-12 12:53 | Emergency (ER) | payer BC ==
[~2021-08-12] VITALS: Ht 157.5 cm; Wt 90.7 kg
[~2021-08-12 12:53] MED LIST changes: +CYCL10TA25 PO; -CYCL10TA9 PO; +DICY20TA PO; -DICY20TA10 PO
[2021-08-12 13:38] LABS: BILIRUBIN,URINE NEGATIVE (NEGATIVE); CLARITY,URINE CLEAR; COLOR,URINE YELLOW; GLUCOSE, URINE (UA) NEGATIVE (NEGATIVE); KETONES,URINE NEGATIVE (NEGATIVE); LEUKOCYTE ESTERASE ,URINE NEGATIVE (NEGATIVE); NITRITE,URINE NEGATIVE (NEGATIVE); PROTEIN,URINE NEGATIVE (NEGATIVE)
[2021-08-12 13:45] LABS: BACTERIA,URINE FEW /HPF; RBC,URINE RARE /HPF
--- NOTE | 2021-08-12 14:43 | ED General ---
General Chief Complaint: Abdominal/GI Problems Stated Complaint: NAUSEA Nursing Triage Note: PT AMBULATE TO ROOM FS02 WITH C/O NAUSEA X1 WEEK. PT REPORTS SHE IS "NOT FROM AROUND HERE" SO SHE HAS NOT SEEN HER PCP FOR THIS C/O. PT STATES SHE IS X1 WEEK LATE ON HER PERIOD. Source of Information: Patient History of Present Illness Date Seen by Provider: Aug 12, 2021 Time Seen by Provider: 14:43 Initial Comments 26-year-old female presenting with complaints of nausea x1 week. She states she had one episode of vomiting. She has been having some diarrhea after every meal but this is been going on since 2015 when she had her gallbladder removed. She denies fever, chills, headache, abdominal pain, blood in her stool, blood in her emesis, vaginal discharge, pain with urination. She states that she is late x1 week on her menstrual cycle and was not sure if she might be . She does not use any control or means to prevent . She normally is regu lar on her menstrual cycles and they usually start somewhere between the 16th and nd of the month. She was not sure if she was , caught a stomach bug, ate some food that was bad, or what was causing her nausea and issues. She is here visiting from [place] and her mother suggested she come to the emergency department. Eating does not make her nausea better or worse. She has diarrhea after almost every time that she eats since having the gallbladder surgery. Timing/Duration: 1 Week Severity: Mild Associated Systoms: No Chest Pain, No Cough, No Diaphoresis, No Fever/Chills, No Headaches, No Loss of Appetite, No Malaise; Nausea/Vomiting; No Rash, No Seizure, No Shortness of Air, No Syncope, No Weakness Allergies and Home Medications Allergies Coded Allergies: egg (Unverified Allergy, Severe, throat swelling, 11/28/18) amoxicillin (Verified Allergy, Unknown, 03/06/20) Penicillins (Unverified Adverse Reaction, Unknown, 11/19/19) Patient Home Medication List Home Medication List Reviewed: Yes Cyclobenzaprine HCl (Cyclobenzaprine HCl) 10 Mg Tablet, 10 MG PO Q8H PRN for SP ASMS Prescribed by: TRENTON PIERCE on 05/25/20 189 Levothyroxine Sodium (Euthyrox) 100 Mcg Tablet, (Reported) Entered as Reported by: MISHEL TRUJILLO on 05/25/201841 Omeprazole Magnesium (Prilosec Otc) 20 Mg Tablet.dr, 20 MG PO DAILY Prescribed by: IZABELLA TIDWELL on 08/18/202143 Ondansetron (Ondansetron Odt) 4 Mg Tab.rapdis, 4 MG PO Q6H Prescribed by: IZABELLA TIDWELL on 08/18/202143 Ondansetron (Ondansetron Odt) 4 Mg Tab.rapdis, 4 MG PO TID Prescribed by: TRENTON PIERCE on 10/02/20 114 Ondansetron (Ondansetron Odt) 4 Mg Tab.rapdis, 4 MG PO Q6H PRN for NAUSEA/VOMITING Prescribed by: JON AWAD on 08/12/21 145 Sucralfate (Sucralfate) 1 Gm Tablet, (Reported) Entered as Reported by: MISHEL TRUJILLO on 05/25/201841 Review of Systems Review of Systems Constitutional: No chills, No fever EENTM: no symptoms reported Respiratory: no symptoms reported Cardiovascular: no symptoms reported Gastrointestinal: see HPI Genitourinary: see HPI; No decreased output, No discharge, No dysuria, No hematuria Musculoskeletal: back pain (Aching in her low back bilaterally in the last few days) Skin: No change in color, No rash Psychiatric/Neurological: Denies Headache, Denies Numbness, Denies Paresthesia, Denies Tremors, Denies Weakness Past Mjeakqu-Oozfhy-Mhqidz Hx Patient Social History Tobacco Use?: No Smoking Status: Never a Smoker Smokeless Tobacco Frequency: Never a User Use of E-Cig and/or Vaping dev: No Use of E-Cig and/or Vaping Alexander: Never a User Substance use?: No Alcohol Use?: No Pt feels they are or have been: No Immunizations Up To Date Tetanus Booster (TDap): Unknown PED Vaccines UTD: Yes Seasonal Allergies Seasonal Allergies: No Past Medical History Surgeries: Yes Adenoidectomy, Eye Surgery, Gallbladder, Tonsillectomy Respiratory: No Cardiac: No Neurological: No Genitourinary: No Gastrointestinal: Yes Gastroesophageal Reflux Musculoskeletal: No Endocrine: Yes Hypothyroidsim HEENT: No Cancer: No Psychosocial: Yes Anxiety, Depression Integumentary: No Blood Disorders: No Physical Exam Vital Signs Vital Signs - First Documented 08/12/21 08/12/21 13:09 15:07 Temp 36.3 Pulse 78 Resp 17 B/P (MAP) 137/86 (103) Pulse Ox 100 O2 Delivery Room Air Capillary Refill : Less Than 3 Seconds Height, Weight, BMI Height: 5'1.00" Weight: 170lbs. oz. 77.506762ri; 36.00 BMI Method:Stated General Appearance: No Apparent Distress, WD/WN HEENT: PERRL/EOMI, Pharynx Normal, Moist Mucous Membranes Neck: Full Range of Motion, Normal Inspection, Non Tender, Supple Respiratory: Chest Non Tender, Lungs Clear, Normal Breath Sounds, No Accessory Muscle Use, No Respiratory Distress Cardiovascular: Regular Rate, Rhythm, Normal Peripheral Pulses Gastrointestinal: Normal Bowel Sounds, No Pulsatile Mass, Non Tender, Soft Rectal: Deferred Back: No CVA Tenderness, No Vertebral Tenderness Extremity: Normal Capillary Refill, Normal Inspection, No Pedal Edema Neurologic/Psychiatric: Alert, Oriented x3, No Motor/Sensory Deficits, Normal 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/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, 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 Norm as Tested Skin: Normal Color, Warm/Dry Progress/Results/Core Measures Suspected Sepsis SIRS Temperature: Pulse: 78 Respiratory Rate: 17 Blood Pressure 137 /86 Mean: 103 Results/Orders Lab Results Laboratory Tests Test 08/12/21 13:21 Range/Units Urine Color YELLOW Urine Clarity CLEAR Urine pH 6.0 5-9 Urine Specific [place] 1.025 H 1.016-1.022 Urine Protein NEGATIVE NEGATIVE Urine Glucose (UA) NEGATIVE NEGATIVE Urine Ketones NEGATIVE NEGATIVE Urine Nitrite NEGATIVE NEGATIVE Urine Bilirubin NEGATIVE NEGATIVE Urine Urobilinogen 0.2 < = 1.0 MG/DL Urine Leukocyte Esterase NEGATIVE NEGATIVE Urine RBC (Auto) NEGATIVE NEGATIVE Urine RBC RARE /HPF Urine WBC NONE /HPF Urine Squamous Epithelial Cells 5-10 /HPF Urine Crystals NONE /LPF Urine Bacteria FEW H /HPF Urine Casts NONE /LPF Urine Mucus MODERATE H /LPF Urine Culture Indicated NO My Orders Orders - JON AWAD MD Ua Culture If Indicated (08/12/21 13:21) Urine Bedside (08/12/21 13:21) Vital Signs/I&O 08/12/21 08/12/21 13:09 15:07 Temp 36.3 Pulse 78 64 Resp 17 17 B/P (MAP) 137/86 (103) 139/77 Pulse Ox 100 O2 Delivery Room Air Room Air Capillary Refill : Less Than 3 Seconds Blood Pressure Mean: 103 Progress Note #1: Progress Note Obtain urinalysis and bedside test. The bedside test was negative. Progress Note #2: Progress Note Urinalysis was negative for signs of infection. Her specific gravity was slightly elevated at 1.025. Counseled patient that I could perform some basic labs and look for signs of an electrolyte imbalance or issues with her kidneys or liver. From a nausea standpoint I can prescribe Zofran since she has taken that previously and it was helpful for her. If this is a stomach virus and related to a gastroenteritis sort of picture then that should improve on its own. Encourage fluids and a bland diet. As far as the diarrhea after gallbladder surgery if she increases her fiber and follows a lower fat diet that should help that as well. Counseled on follow-up and return precautions. Advised to check back with her regular doctor if she continues to be late for her menstrual period and still is not having a positive test. Departure Impression Primary Impression: Nausea and vomiting Qualified Codes: R11.14 - Bilious vomiting Additional Impressions: Chronic diarrhea Late menstruation Disposition: 01 HOME, SELF-CARE Condition: Stable Departure-Patient Inst. Decision time for Depature: 14:59 Referrals: BO MARTE MD (PCP/Family) Primary Care Physician Patient Instructions: Absent or Irregular Periods, [place] Diet, Diarrhea, Adult ED, Nausea and Vomiting, Adult ED Add. Discharge Instructions: Try following a bland diet to see if that helps with your nausea. The diarrhea can be a common occurrence after gallbladder surgery. Sometimes eating a low fat, high fiber diet helps with this. Use the dissolving nausea tablets to help with your nausea and upset stomach. Also, consider using an acid combat systems operator such as Pepcid or Prilosec to help with stomach irritation. Your test and urine test were negative here in the Emergency D epartment. If you continue to have symptoms or are not having a period then you should get rechecked with your regular provider. All discharge instructions reviewed with patient and/or family. Voiced understanding. Scripts Ondansetron (Ondansetron Odt) 4 Mg Tab.rapdis 4 MG PO Q6H PRN for NAUSEA/VOMITING for 5 Days, #20 TAB 0 Refills Prov: JON AWAD MD 08/12/21 JON AWAD MD Aug 12, 2021 14:43
[2021-08-12] MEDS ORDERED: ONDA4TAB11 PO (14:59)
[2021-08-12 15:07] VITALS: BP 139/77
== END 2021-08-12 15:07 | disposition home or self-care (01) ==
LOC: EDUNIT# 12:53 → ER FS 12:54
DX: R11.2 Nausea with vomiting, unspecified (principal); R19.7 Diarrhea, unspecified; N92.6 Irregular menstruation, unspecified; K21.9 Gastro-esophageal reflux disease without esophagitis; E03.9 Hypothyroidism, unspecified; Z79.890 Hormone replacement therapy; Z79.899 Other long term (current) drug therapy
CPT/HCPCS: 81000; 84703; 99283

== ENCOUNTER 2021-10-07 21:53 | Emergency (ER) | payer BC ==
[~2021-10-07] VITALS: Ht 156 cm; Wt 91.0 kg
--- NOTE | 2021-10-07 22:41 | ED General ---
General Chief Complaint: Head/Cervical Problems Stated Complaint: HEADACHE, DIZZINESS Nursing Triage Note: c/o headache, neck pain x3 days. denies injury. Source of Information: Patient History of Present Illness Date Seen by Provider: Oct 07, 2021 Time Seen by Provider: 22:20 Initial Comments PT ARRIVES VIA POV FROM HOME C/O HEADACHE X 3 DAYS--BILATERAL TEMPLES--HEADACHE IS NOT BAD NOW SIDES OF NECK ARE A LITTLE BIT SORE AT TIMES--NOT NOW HAS HAD SUBJECTIVE FEVER AND CHILLS--"GET HOT AND COLD ALL THE TIME" HAS LOST HER TASTE, BUT CAN STILL SMELL A LITTLE SLIGHT RUNNY NOSE NO COUGH SLIGHT NAUSEA, NO VOMITING. NO DIARRHEA TOOK TYLENOL 500 MG YESTERDAY PT HAD COVID-19 VACCINES X 2 IN AUGUST 2021--LAST ONE 09/09/21 PT HAS BEEN EXPOSED TO COVID-19 THIS WEEK--HAS BEEN WITH A FRIEND WHO HAS BEEN SICK FOR OVER A WEEK AND TESTED + FOR COVID-19 THIS WEEK PT HAS NOT SOUGHT CARE UNTIL TONIGHT HAS NOT TAKEN ANYTHING FOR PAIN TODAY SYMPTOMS NO DIFFERENT TONIGHT HAS NOT DONE ANY HOME COVID-19 TESTS. PCP: DR. MARTE, [facility] Allergies and Home Medications Allergies Coded Allergies: egg (Unverified Allergy, Severe, throat swelling, 11/28/18) amoxicillin (Verified Allergy, Unknown, 03/06/20) Penicillins (Unverified Adverse Reaction, Unknown, 11/19/19) Patient Home Medication List Home Medication List Reviewed: Yes Levothyroxine Sodium (Euthyrox) 100 Mcg Tablet, (Reported) Entered as Reported by: MISHEL TRUJILLO on 05/25/201841 Discontinued Medications Cyclobenzaprine HCl (Cyclobenzaprine HCl) 10 Mg Tablet, 10 MG PO Q8H PRN for SPASMS Discontinued Reason: No Longer Taking Prescribed by: TRENTON PIERCE on 05/25/201852 Last Action: Discontinued Omeprazole Magnesium (Prilosec Otc) 20 Mg Tablet.dr, 20 MG PO DAILY Discontinued Reason: No Longer Taking Prescribed by: IZABELLA TIDWELL on 08/18/202143 Last Action: Discontinued Ondansetron (Ondansetron Odt) 4 Mg Tab.rapdis, 4 MG PO Q6H Discontinued Reason: No Longer Taking Prescribed by: IZABELLA TIDWELL on 08/18/202143 Last Action: Discontinued Ondansetron (Ondansetron Odt) 4 Mg Tab.rapdis, 4 MG PO TID Discontinued Reason: No Longer Taking Prescribed by: TRENTON PIERCE on 10/02/20 1147 Last Action: Discontinued Ondansetron (Ondansetron Odt) 4 Mg Tab.rapdis, 4 MG PO Q6H PRN for NAUSEA/VOMITING Discontinued Reason: No Longer Taking Prescribed by: JON AWAD on 08/12/21 1459 Last Action: Discontinued Sucralfate (Sucralfate) 1 Gm Tablet, (Reported) Discontinued Reason: No Longer Taking Entered as Reported by: MISHEL TRUJILLO on 05/25/20 1842 Last Action: Discontinued Review of Systems Review of Systems Constitutional: see HPI EENTM: see HPI Respiratory: no symptoms reported Cardiovascular: no symptoms reported Gastrointestinal: see HPI Genitourinary: no symptoms reported Musculoskeletal: see HPI Skin: no symptoms reported Psychiatric/Neurological: See HPI Hematologic/Lymphatic: No Symptoms Reported Immunological/Allergic: no symptoms reported Past Ueuprvb-Wvojks-Dtzhff Hx Patient Social History Tobacco Use?: No Substance use?: No Alcohol Use?: No Pt feels they are or have been: No Immunizations Up To Date Tetanus Booster (TDap): Unknown PED Vaccines UTD: Yes First/Initial COVID19 Vaccinat: 08/07 Second COVID19 Vaccination Uriel: 09/06 Seasonal Allergies Seasonal Allergies: No Past Medical History Surgery/Hospitalization HX: [facility], eye, hypothryoid Surgeries: Yes Adenoidectomy, Eye Surgery, Gallbladder, Tonsillectomy Respiratory: No Cardiac: No Neurological: No Genitourinary: No Gastrointestinal: Yes Gastroesophageal Reflux Musculoskeletal: No Endocrine: Yes Hypothyroidsim HEENT: No Cancer: No Psychosocial: Yes Anxiety, Depression Integumentary: No Blood Disorders: No Physical Exam Vital Signs Vital Signs - First Documented 10/07/21 22:04 Temp 36.2 Pulse 85 Resp 18 B/P (MAP) 136/63 (87) Pulse Ox 97 O2 Delivery Room Air Capillary Refill : Less Than 3 Seconds Height, Weight, BMI Height: 5'1.00" Weight: 170lbs. oz. 77.346364iy; 37.00 BMI Method:Stated General Appearance: No Apparent Distress, WD/WN, Other (SMILING, TALKATIVE, DOES NOT APPEAR ILL OR TO BE IN ANY DISCOMFORT OR DISTRESS. 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 Norm as Tested Skin: Normal Color, Warm/Dry Progress/Results/Core Measures Suspected Sepsis SIRS Temperature: Pulse: 85 Respiratory Rate: 18 Blood Pressure 136 /63 Mean: 87 Results/Orders Lab Results Laboratory Tests Test 10/07/21 22:30 Range/Units Influenza Type A (RT-PCR) Not Detected Not Detecte Influenza Type B (RT-PCR) Not Detected Not Detecte SARS-CoV-2 RNA (RT-PCR) Not Detected Not Detecte My Orders Orders - MARY DAWSON DO Covid 19 Inhouse Test (10/07/21 22:35) Influenza A And B By Pcr (10/07/21 22:35) Isolation Central Supply Req (10/07/21 22:35) Vital Signs/I&O 10/07/21 22:04 Temp 36.2 Pulse 85 Resp 18 B/P (MAP) 136/63 (87) Pulse Ox 97 O2 Delivery Room Air Capillary Refill : Less Than 3 Seconds Blood Pressure Mean: 87 Progress Note : Progress Note PLACED IN ISOLATION ROOM PPE WORN AT ALL TIMES COVID-19 TESTING DONE. NO COUGH NO FEVER NO HYPOXIA NO DYSPNEA NO GI COMPLAINTS NO COMPLAINTS OF ANY KIND DURING ER STAY Departure Impression Primary Impression: Person under investigation for COVID-19 Additional Impression: Close exposure to COVID-19 virus Disposition: 01 HOME, SELF-CARE Condition: Stable Departure-Patient Inst. Decision time for Depature: 23:05 Referrals: BO MARTE MD (PCP/Family) Primary Care Physician Patient Instructions: Headache, Adult (DC), COVID-19 Tests, Preventing the Spread of an Infectious Disease Add. Discharge Instructions: HOME, REST LOTS OF CLEAR LIQUIDS TYLENOL 1 GRAM/ MOTRIN 800 MG 4 TIMES A DAY NEEDED FOR PAIN OR FEVER FOLLOW UP WITH YOUR DR ON SUNDAY IF NO BETTER, YOU MAY NEED TO BE RETESTED AT THAT TIME QUARANTINE X 5 DAYS, THEN WEAR MASK AT ALL TIMES FOR AN ADDITIONAL 5 DAYS All discharge instructions reviewed with patient and/or family. Voiced understanding. MARY DAWSON DO Oct 07, 2021 22:41
[2021-10-07 23:09] VITALS: BP 148/72
== END 2021-10-07 23:15 | disposition home or self-care (01) ==
LOC: EDUNIT# 21:53 → ER 21:56
DX: Z20.822 Contact with and (suspected) exposure to COVID-19 (principal); E03.9 Hypothyroidism, unspecified; K21.9 Gastro-esophageal reflux disease without esophagitis; Z79.899 Other long term (current) drug therapy; Z79.890 Hormone replacement therapy
CPT/HCPCS: 87636; 99283

== ENCOUNTER 2022-03-04 14:09 | Emergency (ER) | payer BC ==
[~2022-03-04] VITALS: Ht 157.5 cm; Wt 93.0 kg
[2022-03-04 14:16] VITALS: BP 107/68
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
--- NOTE | 2022-03-04 14:43 | Diagnostic Imaging Report ---
CLINICAL HISTORY: Left-sided ankle pain. Twisted left ankle. COMPARISON: None. TECHNIQUE: 3 views of the left ankle. FINDINGS: There is no acute fracture or dislocation of the left ankle. Alignment is anatomic. The imaged joint spaces are preserved. No focal osseous lesions are seen. Mild surrounding soft tissue edema is seen involving the left ankle. IMPRESSION: 1. No acute fracture or dislocation in the left ankle. Dictated by: Dictated on workstation # [id number]
[2022-03-04] MEDS ORDERED: DICL75TA2 PO (14:53)
== END 2022-03-04 15:10 | disposition home or self-care (01) ==
LOC: EDUNIT# 14:09 → ER 14:10
DX: S93.402A Sprain of unspecified ligament of left ankle, initial encounter (principal); S96.912A Strain of unspecified muscle and tendon at ankle and foot level, left foot, initial encounter; F17.210 Nicotine dependence, cigarettes, uncomplicated; Z28.311 Partially vaccinated for COVID-19; W18.30XA Fall on same level, unspecified, initial encounter
CPT/HCPCS: 73610

== ENCOUNTER 2022-03-24 16:28 | Emergency (ER) | payer BC ==
[~2022-03-24] VITALS: Ht 154 cm; Wt 92.9 kg
[~2022-03-24 16:28] MED LIST changes: +DICL75TA2 PO
--- NOTE | 2022-03-24 16:38 | ED General ---
General Stated Complaint: LIGHT HEADED, DIZZY, WEAK Source of Information: Patient Exam Limitations: No Limitations (PINEDA PAULSON APRN) History of Present Illness Date Seen by Provider: Mar 24, 2022 Time Seen by Provider: 16:36 Initial Comments to ER with sudden onset of malaise, weakness, dizziness, lightheadedness, nausea and vomiting x1. This began 1 hour ago while traveling in a car without air conditioning. Heat index is over 105 today. Timing/Duration: 1 Hour Severity: Moderate Associated Systoms: Denies Symptoms, Malaise, Nausea/Vomiting (PINEDA PAULSON APRN) Allergies and Home Medications Allergies Coded Allergies: egg (Unverified Allergy, Severe, throat swelling, 11/28/18) amoxicillin (Verified Allergy, Unknown, 03/06/20) Penicillins (Unverified Adverse Reaction, Unknown, 11/19/19) Patient Home Medication List Home Medication List Reviewed: Yes (PINEDA PAULSON APRN) Diclofenac Sodium (Diclofenac Sodium) 75 Mg Tablet.dr, 75 MG PO BID Prescribed by: Elder Suero on 03/04/22 1453 Levothyroxine Sodium (Euthyrox) 100 Mcg Tablet, (Reported) Entered as Reported by: MISHEL TRUJILLO on 05/25/20 1842 Review of Systems Review of Systems Constitutional: see HPI EENTM: see HPI Respiratory: no symptoms reported Cardiovascular: no symptoms reported Genitourinary: no symptoms reported Musculoskeletal: no symptoms reported Skin: no symptoms reported Psychiatric/Neurological: No Symptoms Reported Hematologic/Lymphatic: No Symptoms Reported Immunological/Allergic: no symptoms reported (PINEDA PAULSON APRN) Past Kjpewen-Dvvrtn-Sarrhb Hx Immunizations Up To Date Tetanus Booster (TDap): Unknown PED Vaccines UTD: Yes First/Initial COVID19 Vaccinat: 08/07 Second COVID19 Vaccination Uriel: 09/06 (PINEDA PAULSON APRN) Seasonal Allergies Seasonal Allergies: No (PINEDA PAULSON APRN) Past Medical History Surgery/Hospitalization HX: shelley, eye, hypothryoid Surgeries: Yes Adenoidectomy, Eye Surgery, Gallbladder, Tonsillectomy Respiratory: No Cardiac: No Neurological: No Genitourinary: No Gastrointestinal: Yes Gastroesophageal Reflux Musculoskeletal: No Endocrine: Yes Hypothyroidsim HEENT: No Cancer: No Psychosocial: Yes Anxiety, Depression Integumentary: No Blood Disorders: No (PINEDA PAULSON APRN) Physical Exam Vital Signs Vital Signs - First Documented 03/24/22 16:39 Temp 35.1 Pulse 67 Resp 20 B/P (MAP) 127/79 (95) Pulse Ox 98 (NATI HICKS MD) Vital Signs Capillary Refill : (PINEDA PAULSON APRN) Height, Weight, BMI Height: 5'1.00" Weight: 170lbs. oz. 77.487954tk; 37.00 BMI Method:Stated General Appearance: No Apparent Distress, WD/WN Eyes: Bilateral Eye Normal Inspection, Bilateral Eye PERRL, Bilateral Eye EOMI Neck: Full Range of Motion, Normal Inspection Respiratory: Lungs Clear, Normal Breath Sounds, No Accessory Muscle Use, No Respiratory Distress Cardiovascular: Regular Rate, Rhythm, Normal Peripheral Pulses Gastrointestinal: Normal Bowel Sounds, Non Tender, Soft Extremity: Normal Capillary Refill, Normal Inspection Neurologic/Psychiatric: Alert, Oriented x3 Skin: Normal Color, Warm/Dry (PINEDA PAULSON APRN) Progress/Results/Core Measures Suspected Sepsis SIRS Temperature: Pulse: Respiratory Rate: Laboratory Tests 03/24/22 16:38: White Blood Count 10.0 Blood Pressure / Mean: Laboratory Tests 03/24/22 16:38: Creatinine 1.05, Platelet Count 283, Total Bilirubin 0.4 (PINEDA PAULSON APRN) Results/Orders Lab Results Laboratory Tests Test 03/24/22 16:38 03/24/22 16:46 03/24/22 17:05 Range/Units White Blood Count 10.0 4.3-11.0 10^3/uL Red Blood Count 4.65 3.80-5.11 10^6/uL Hemoglobin 13.8 11.5-16.0 g/dL Hematocrit 40 35-52 % Mean Corpuscular Volume 87 80-99 fL Mean Corpuscular Hemoglobin 30 25-34 pg Mean Corpuscular Hemoglobin Concent 34 32-36 g/dL Red Cell Distribution Width 12.9 10.0-14.5 % Platelet Count 283 130-400 10^3/uL Mean Platelet Volume 9.7 9.0-12.2 fL Immature Granulocyte % (Auto) 0 % Neutrophils (%) (Auto) 55 42-75 % Lymphocytes (%) (Auto) 37 12-44 % Monocytes (%) (Auto) 7 0-12 % Eosinophils (%) (Auto) 1 0-10 % Basophils (%) (Auto) 1 0-10 % Neutrophils # (Auto) 5.5 1.8-7.8 10^3/uL Lymphocytes # (Auto) 3.7 1.0-4.0 10^3/uL Monocytes # (Auto) 0.7 0.0-1.0 10^3/uL Eosinophils # (Auto) 0.1 0.0-0.3 10^3/uL Basophils # (Auto) 0.1 0.0-0.1 10^3/uL Immature Granulocyte # (Auto) 0.0 0.0-0.1 10^3/uL Sodium Level 140 135-145 MMOL/L Potassium Level 3.8 3.6-5.0 MMOL/L Chloride Level 107 98-107 MMOL/L Carbon Dioxide Level 21 21-32 MMOL/L Anion Gap 12 5-14 MMOL/L Blood Urea Nitrogen 13 7-18 MG/DL Creatinine 1.05 0.60-1.30 MG/DL Estimat Glomerular Filtration Rate 76 BUN/Creatinine Ratio 12 Glucose Level 108 H 70-105 MG/DL Calcium Level 9.6 8.5-10.1 MG/DL Corrected Calcium 9.4 8.5-10.1 MG/DL Total Bilirubin 0.4 0.1-1.0 MG/DL Aspartate Amino Transf (AST/SGOT) 16 5-34 U/L Alanine Aminotransferase (ALT/SGPT) 22 0-55 U/L Alkaline Phosphatase 80 40-136 U/L Total Protein 7.2 6.4-8.2 GM/DL Albumin 4.2 3.2-4.5 GM/DL Urine Color YELLOW Urine Clarity CLEAR Urine pH 6.0 5-9 Urine Specific [place] >=1.030 1.016-1.022 Urine Protein NEGATIVE NEGATIVE Urine Glucose (UA) NEGATIVE NEGATIVE Urine Ketones NEGATIVE NEGATIVE Urine Nitrite NEGATIVE NEGATIVE Urine Bilirubin NEGATIVE NEGATIVE Urine Urobilinogen 0.2 < = 1.0 MG/DL Urine Leukocyte Esterase NEGATIVE NEGATIVE Urine RBC (Auto) NEGATIVE NEGATIVE Urine RBC NONE /HPF Urine WBC NONE /HPF Urine Squamous Epithelial Cells 5-10 /HPF Urine Crystals NONE /LPF Urine Bacteria NEGATIVE /HPF Urine Casts NONE /LPF Urine Mucus NEGATIVE /LPF Urine Culture Indicated NO Serum Test, Qualitative NEGATIVE NEGATIVE (NATI HICKS MD) Medications Given in ED Current Medications Medications Dose Ordered Sig/Eduardo Route Start Time Stop Time Status Last Admin Dose Admin Ondansetron HCl 4 mg ONCE ONCE IVP 03/24/22 16:45 03/24/22 16:46 DC 03/24/22 16:44 4 MG (NATI HICKS MD) Vital Signs/I&O 03/24/22 03/24/22 16:39 17:42 Temp 35.1 Pulse 67 81 Resp 20 18 B/P (MAP) 127/79 (95) 114/65 Pulse Ox 98 98 (NATI HICKS MD) Vital Signs/I&O Capillary Refill : (PINEDA PAULSON APRN) Departure Impression Primary Impression: Heat exhaustion Disposition: 01 HOME, SELF-CARE Condition: Stable Departure-Patient Inst. Decision time for Depature: 16:37 (PINEDA PAULSON APRN) Referrals: BO MARTE MD (PCP/Family) Primary Care Physician Patient Instructions: Heat Exhaustion and Heat Stroke (DC) Add. Discharge Instructions: . Drink plenty of fluids. Stay in the air conditioning today. Return to ER for any concerns. Follow-up with your doctor next week. ATTENDING PHYSICIAN NOTE: I was physically present as attending physician in the emergency department during the care of this patient, but I was not directly involved in the decision making or delivery of care for this patient. (NATI HICKS MD) PINEDA PAULSON APRN Mar 24, 2022 16:38 NATI HICKS MD Mar 24, 2022 18:33
[2022-03-24 16:44] LABS: BASOPHILS # (AUTO) 0.1 10^3/uL (0.0-0.1); BASOPHILS % (AUTO) 1 % (0-10); EOSINOPHILS # (AUTO) 0.1 10^3/uL (0.0-0.3); EOSINOPHILS % (AUTO) 1 % (0-10); HEMATOCRIT 40 % (35-52); HEMOGLOBIN 13.8 g/dL (11.5-16.0); LYMPHOCYTES # (AUTO) 3.7 10^3/uL (1.0-4.0); LYMPHOCYTES % (AUTO) 37 % (12-44); MEAN CORPUSCULAR HEMOGLOBIN 30 pg (25-34); MEAN CORPUSCULAR HGB CONC 34 g/dL (32-36); MEAN CORPUSCULAR VOLUME 87 fL (80-99); MEAN PLATELET VOLUME 9.7 fL (9.0-12.2); MONOCYTES # (AUTO) 0.7 10^3/uL (0.0-1.0); MONOCYTES % (AUTO) 7 % (0-12); NEUTROPHILS # (AUTO) 5.5 10^3/uL (1.8-7.8); NEUTROPHILS % (AUTO) 55 % (42-75); PLATELET COUNT 283 10^3/uL (130-400)
[2022-03-24] MEDS ORDERED: ONDANSETRON 4 MG/2 ML (SDV) Z0FRAN IVP ONE (16:45)
[2022-03-24] MEDS ORDERED: LACTATED RINGERS 1,000 ML IV SCH (16:45)
[2022-03-24 16:51] LABS: BILIRUBIN,URINE NEGATIVE (NEGATIVE); CLARITY,URINE CLEAR; COLOR,URINE YELLOW; GLUCOSE, URINE (UA) NEGATIVE (NEGATIVE); KETONES,URINE NEGATIVE (NEGATIVE); LEUKOCYTE ESTERASE ,URINE NEGATIVE (NEGATIVE); NITRITE,URINE NEGATIVE (NEGATIVE); PROTEIN,URINE NEGATIVE (NEGATIVE)
[2022-03-24 16:54] LABS: ALBUMIN 4.2 GM/DL (3.2-4.5); POTASSIUM 3.8 MMOL/L (3.6-5.0)
[2022-03-24 16:56] LABS: CALCIUM 9.6 MG/DL (8.5-10.1)
[2022-03-24 16:57] LABS: TOTAL PROTEIN 7.2 GM/DL (6.4-8.2)
[2022-03-24 16:59] LABS: BILIRUBIN,TOTAL 0.4 MG/DL (0.1-1.0)
[2022-03-24 17:00] LABS: CREATININE SERUM 1.05 MG/DL (0.60-1.30)
[2022-03-24 17:28] LABS: BACTERIA,URINE NEGATIVE /HPF
[2022-03-24 17:42] VITALS: BP 114/65
== END 2022-03-24 17:42 | disposition home or self-care (01) ==
LOC: EDUNIT# 16:28 → ER 16:31
DX: T67.5XXA Heat exhaustion, unspecified, initial encounter (principal)
CPT/HCPCS: 36415; 80053; 81000; 84703; 85025

== ENCOUNTER 2022-04-11 20:03 | Emergency (ER) | payer BC ==
[2022-04-11 20:16] VITALS: BP 124/83
--- NOTE | 2022-04-11 21:08 | ED Cough/URI ---
General Chief Complaint: Cough/Cold/Flu Symptoms Stated Complaint: PNEUMONIA, SOB Nursing Triage Note: pt presents with c/o SOB, cough, and throat pain. pt reports being seen on sunday at [facility] and with pneumonia and started on a medication that she does not know the name of. reports she has continued to have a cough, sob and throat pain. Source: patient Exam Limitations: no limitations History of Present Illness Date Seen by Provider: Apr 11, 2022 Time Seen by Provider: 20:16 Initial Comments Patient to the ER by private conveyance from home with chief complaint she is continuing to have a worsening productive cough nausea vomiting diarrhea. She has some nausea medicine which sometimes helps. She been using 2-3 times a day. She was seen on Sunday when her symptoms started with a sore throat and body aches and a cough at [facility]. The did some blood work told her she had mycoplasma antibodies and put her on azithromycin and ondansetron. She still has a sore throat but has been drinking fluids and has no history of lung disease or smoking. History of cholecystectomy. Not on any control. Last menstrual period was last week, regular 3-day long cycle. She works for [employer] in [employer]. Allergies and Home Medications Allergies Coded Allergies: egg (Unverified Allergy, Severe, throat swelling, 11/28/18) amoxicillin (Verified Allergy, Unknown, 03/06/20) Penicillins (Unverified Adverse Reaction, Unknown, 11/19/19) Patient Home Medication List Home Medication List Reviewed: Yes Diclofenac Sodium (Diclofenac Sodium) 75 Mg Tablet.dr, 75 MG PO BID Prescribed by: Elder Suero on 03/04/22 1453 Doxycycline Hyclate (Doxycycline Hyclate) 100 Mg Tablet, 100 MG PO BID Prescribed by: ROBERT RUFF on 04/11/222217 Levothyroxine Sodium (Euthyrox) 100 Mcg Tablet, (Reported) Entered as Reported by: MISHEL TRUJILLO on 05/25/20 184 Ondansetron (Ondansetron Odt) 4 Mg Tab.rapdis, 4-8 MG PO Q6H PRN for NAUSEA/VOMITING Prescribed by: ROBERT RUFF on 04/11/222217 Review of Systems Review of Systems Constitutional: No chills, No fever; malaise EENTM: No ear discharge, No ear pain Respiratory: cough, phlegm; No short of breath Cardiovascular: No chest pain, No edema Gastrointestinal: No abdominal pain, No constipation, No diarrhea Genitourinary: No discharge, No dysuria Musculoskeletal: No back pain, No joint pain All Other Systems Reviewed Negative Unless Noted: Yes Past Exlkgsy-Ylfpqj-Arjojk Hx Patient Social History Tobacco Use?: No Substance use?: No Alcohol Use?: No Pt feels they are or have been: No Immunizations Up To Date Tetanus Booster (TDap): Unknown PED Vaccines UTD: Yes Influenza Vaccine Up-to-Date: No; Not Current First/Initial COVID19 Vaccinat: unknown date Second COVID19 Vaccination Uriel: unknown date Third COVID19 Vaccination Date: [employer] 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: [employer] Seasonal Allergies Seasonal Allergies: No Past Medical History Surgery/Hospitalization HX: shelley, eye, hypothryoid Surgeries: Yes Adenoidectomy, Eye Surgery, Gallbladder, Tonsillectomy Respiratory: No Cardiac: No Neurological: No Genitourinary: No Gastrointestinal: Yes Gastroesophageal Reflux Musculoskeletal: No Endocrine: Yes Hypothyroidsim HEENT: No Cancer: No Psychosocial: Yes Anxiety, Depression Integumentary: No Blood Disorders: No Physical Exam Vital Signs - First Documented 04/11/22 20:16 Pulse 61 Resp 18 B/P (MAP) 124/83 (97) Pulse Ox 98 O2 Delivery Room Air Capillary Refill : Height: 5'1.00" Weight: 170lbs. oz. 77.439547op; 39.00 BMI Method:Stated General Appearance: WD/WN, no apparent distress Eyes: Bilateral Eye Normal Inspection, Bilateral Eye PERRL, Bilateral Eye EOMI HEENT: PERRL/EOMI, normal ENT inspection (Mild retropharyngeal injection), TMs normal, pharynx normal Neck: non-tender, full range of motion, supple, normal inspection Respiratory: lungs clear, normal breath sounds, no respiratory distress, no accessory muscle use Cardiovascular: normal peripheral pulses, regular rate, rhythm, no edema Extremities: non-tender, normal inspection, normal capillary refill Neurologic/Psychiatric: alert, normal mood/affect, oriented x 3 Skin: normal color, warm/dry Progress/Results/Core Measures Suspected Sepsis SIRS Temperature: Pulse: 61 Respiratory Rate: 18 Laboratory Tests 04/11/22 21:13: White Blood Count 9.6 Blood Pressure 124 /83 Mean: 97 Laboratory Tests 04/11/22 21:13: Creatinine 1.18, Platelet Count 336, Total Bilirubin 0.3 Results/Orders Lab Results Laboratory Tests Test 04/11/22 21:00 04/11/22 21:13 Range/Units SARS-CoV-2 RNA (RT-PCR) Not Detected Not Detecte White Blood Count 9.6 4.3-11.0 10^3/uL Red Blood Count 4.47 3.80-5.11 10^6/uL Hemoglobin 13.1 11.5-16.0 g/dL Hematocrit 40 35-52 % Mean Corpuscular Volume 89 80-99 fL Mean Corpuscular Hemoglobin 29 25-34 pg Mean Corpuscular Hemoglobin Concent 33 32-36 g/dL Red Cell Distribution Width 13.2 10.0-14.5 % Platelet Count 336 130-400 10^3/uL Mean Platelet Volume 9.5 9.0-12.2 fL Immature Granulocyte % (Auto) 1 % Neutrophils (%) (Auto) 53 42-75 % Lymphocytes (%) (Auto) 40 12-44 % Monocytes (%) (Auto) 4 0-12 % Eosinophils (%) (Auto) 2 0-10 % Basophils (%) (Auto) 0 0-10 % Neutrophils # (Auto) 5.1 1.8-7.8 10^3/uL Lymphocytes # (Auto) 3.9 1.0-4.0 10^3/uL Monocytes # (Auto) 0.4 0.0-1.0 10^3/uL Eosinophils # (Auto) 0.2 0.0-0.3 10^3/uL Basophils # (Auto) 0.0 0.0-0.1 10^3/uL Immature Granulocyte # (Auto) 0.1 0.0-0.1 10^3/uL Sodium Level 139 135-145 MMOL/L Potassium Level 3.7 3.6-5.0 MMOL/L Chloride Level 106 98-107 MMOL/L Carbon Dioxide Level 23 21-32 MMOL/L Anion Gap 10 5-14 MMOL/L Blood Urea Nitrogen 9 7-18 MG/DL Creatinine 1.18 0.60-1.30 MG/DL Estimat Glomerular Filtration Rate 66 BUN/Creatinine Ratio 8 Glucose Level 88 70-105 MG/DL Calcium Level 9.2 8.5-10.1 MG/DL Corrected Calcium 9.2 8.5-10.1 MG/DL Total Bilirubin 0.3 0.1-1.0 MG/DL Aspartate Amino Transf (AST/SGOT) 16 5-34 U/L Alanine Aminotransferase (ALT/SGPT) 14 0-55 U/L Alkaline Phosphatase 64 40-136 U/L C-Reactive Protein High Sensitivity 0.74 H 0.00-0.50 MG/DL Total Protein 6.9 6.4-8.2 GM/DL Albumin 4.0 3.2-4.5 GM/DL My Orders Orders - ROBERT RUFF Cbc With Automated Diff (04/11/22 20:57) Comprehensive Metabolic Panel (04/11/22 20:57) Hs C Reactive Protein (04/11/22 20:57) Urine Bedside (04/11/22 20:57) Chest Pa/Lat (2 View) (04/11/22 20:57) Covid 19 Inhouse Test (04/11/22 20:57) Vital Signs/I&O 04/11/22 04/11/22 20:16 20:16 Pulse 61 Resp 18 B/P (MAP) 124/83 (97) Pulse Ox 98 O2 Delivery Room Air Room Air Capillary Refill : Blood Pressure Mean: 97 Progress Note : Time: 21:06 Progress Note Plan to give a chest x-ray and some labs. Her symptoms are consistent with mycoplasma pneumonia or a viral bronchitis. Her vital signs are completely normal. She is oxygenating well 96 to 98% on room air nonlabored breathing. We will repeat some blood work and give her another COVID test. Since her symptoms are persisting or possibly even worsening we may consider a repeat azithromycin pack or a short course of doxycycline with probiotics and another course of ondansetron. She does not appear dehydrated and she is drinking fluids without issue. Diagnostic Imaging Diagonstic Imaging: Xray Plain Films/CT/US/NM/MRI: chest Comments [facility]. [place], [place] NAME: CELINE QUARLES Elsa [facility] REC#: [id number] PT STATUS: REG ER : 1995 PHYSICIAN: ROBERT RUFF MD ADMIT DATE: 04/11/22/ER Draft Date of Exam:04/11/22 CHEST PA/LAT (2 VIEW) EXAMINATION: Chest 2 view HISTORY: Shortness of breath and cough. COMPARISON: 11/28/2018 FINDINGS: The lungs are clear without edema or pneumonia. No pleural effusion or pneumothorax. Heart size is normal. IMPRESSION: 1. Clear lungs. Dictated on workstation # [id number] Dict: 04/11/222204 Trans: 04/11/222206 [facility] [id number] Interpreted by: WILLIE PEARCE MD Electronically signed by: Reviewed: Reviewed by Me Departure Impression Primary Impression: Mycoplasma pneumonia Qualified Codes: J15.7 - Pneumonia due to Mycoplasma pneumoniae Disposition: HOME, SELF-CARE Condition: Stable Departure-Patient Inst. Decision time for Depature: 22:17 Referrals: BO MARTE MD (PCP/Family) Primary Care Physician Patient Instructions: Atypical Pneumonia (Mycoplasma and Viral) (DC) Add. Discharge Instructions: Doxycycline 1 capsule twice a day for a week. Drink plenty of fluids. Ondansetron 1 or 2 tablets every 6 hours as needed for nausea or vomiting. Imodium 2 tablets for loose stools followed by 1 tablet every 4 hours afterwards that you are still having loose, watery stools. Return to the ER if you are unable to keep up with your fluid intake, having shortness of air resulting in oxygen saturation below 90% or other worrisome symptoms All discharge instructions reviewed with patient and/or family. Voiced understanding. Scripts Ondansetron (Ondansetron Odt) 4 Mg Tab.rapdis 4-8 MG PO Q6H PRN for NAUSEA/VOMITING, #15 TAB 0 Refills Prov: ROBERT RUFF 04/11/22 Doxycycline Hyclate (Doxycycline Hyclate) 100 Mg Tablet 100 MG PO BID for 7 Days, #14 TAB 0 Refills Prov: ROBERT RUFF 04/11/22 Work/School Note: Work Release Form Date Seen in the Emergency Department: Apr 11, 2022 Return to Work: Apr 14, 2022 Restrictions: No Restrictions, Return-No Fever (24hrs) ROBERT RUFF Apr 11, 2022 21:08
[2022-04-11 21:27] LABS: BASOPHILS % (AUTO) 0 % (0-10); EOSINOPHILS # (AUTO) 0.2 10^3/uL (0.0-0.3); EOSINOPHILS % (AUTO) 2 % (0-10); HEMATOCRIT 40 % (35-52); HEMOGLOBIN 13.1 g/dL (11.5-16.0); LYMPHOCYTES # (AUTO) 3.9 10^3/uL (1.0-4.0); LYMPHOCYTES % (AUTO) 40 % (12-44); MEAN CORPUSCULAR HEMOGLOBIN 29 pg (25-34); MEAN CORPUSCULAR HGB CONC 33 g/dL (32-36); MEAN CORPUSCULAR VOLUME 89 fL (80-99); MEAN PLATELET VOLUME 9.5 fL (9.0-12.2); MONOCYTES # (AUTO) 0.4 10^3/uL (0.0-1.0); MONOCYTES % (AUTO) 4 % (0-12); NEUTROPHILS # (AUTO) 5.1 10^3/uL (1.8-7.8); NEUTROPHILS % (AUTO) 53 % (42-75); PLATELET COUNT 336 10^3/uL (130-400); WHITE BLOOD COUNT 9.6 10^3/uL (4.3-11.0)
[2022-04-11 21:32] LABS: POTASSIUM 3.7 MMOL/L (3.6-5.0)
[2022-04-11 21:34] LABS: CALCIUM 9.2 MG/DL (8.5-10.1)
[2022-04-11 21:35] LABS: TOTAL PROTEIN 6.9 GM/DL (6.4-8.2)
[2022-04-11 21:37] LABS: BILIRUBIN,TOTAL 0.3 MG/DL (0.1-1.0)
[2022-04-11 21:39] LABS: CREATININE SERUM 1.18 MG/DL (0.60-1.30)
--- NOTE | 2022-04-11 22:08 | Diagnostic Imaging Report ---
EXAMINATION: Chest 2 view HISTORY: Shortness of breath and cough. COMPARISON: 11/28/2018 FINDINGS: The lungs are clear without edema or pneumonia. No pleural effusion or pneumothorax. Heart size is normal. IMPRESSION: 1. Clear lungs. Dictated by: Dictated on workstation # [id number]
[2022-04-11] MEDS ORDERED: DOXY100T2 PO (22:18)
[2022-04-11] MEDS ORDERED: ONDA4TAB11 PO (22:18)
[2022-04-11] MEDS ORDERED: RX-ONDANSETRON 4 MG ODT (ZOFRAN) PPK #4 PO STA (22:24)
[2022-04-11] MEDS ORDERED: KETOROLAC 60 MG/2 ML VIAL IM ONE (22:30)
== END 2022-04-11 22:37 | disposition home or self-care (01) ==
LOC: EDUNIT# 20:03 → ER 20:05
DX: J15.7 Pneumonia due to Mycoplasma pneumoniae (principal); Z88.0 Allergy status to penicillin; Z88.1 Allergy status to other antibiotic agents; Z20.822 Contact with and (suspected) exposure to COVID-19
CPT/HCPCS: 36415; 71046; 80053; 84703; 85025; 86141; 87636; 99284

== ENCOUNTER 2022-05-02 22:10 | Emergency (ER) | payer BC ==
[~2022-05-02 22:10] MED LIST changes: +DOXY100T2 PO
[2022-05-02 22:40] LABS: BILIRUBIN,URINE NEGATIVE (NEGATIVE); CLARITY,URINE SL CLOUDY; COLOR,URINE YELLOW; GLUCOSE, URINE (UA) NEGATIVE (NEGATIVE); KETONES,URINE NEGATIVE (NEGATIVE); LEUKOCYTE ESTERASE ,URINE NEGATIVE (NEGATIVE); NITRITE,URINE NEGATIVE (NEGATIVE); PROTEIN,URINE NEGATIVE (NEGATIVE)
--- NOTE | 2022-05-02 22:47 | Diagnostic Imaging Report ---
INDICATION: Right abdominal pain Supine image of the abdomen reveals mild gaseous distention of the colon from cecum to splenic flexure. Small metallic object in the right hemipelvis is likely related to previous surgery. Otherwise, there is no evidence of pathologic abdominal calcification. Surgical clips are seen in the gallbladder fossa. IMPRESSION: No definite acute abnormality identified. There is a generalized paucity of distal colonic bowel gas of uncertain significance. No proximal dilatation is present. Dictated by: Dictated on workstation # [id number]
[2022-05-02 22:48] LABS: AMORPHOUS SEDIMENT,UR FEW AMOR PHOSPHATE /LPF; BACTERIA,URINE TRACE /HPF; WBC,URINE RARE /HPF
[2022-05-02 22:49] LABS: HEMATOCRIT 40 % (35-52); HEMOGLOBIN 13.8 g/dL (11.5-16.0); MEAN CORPUSCULAR HEMOGLOBIN 30 pg (25-34); MEAN CORPUSCULAR HGB CONC 34 g/dL (32-36); MEAN CORPUSCULAR VOLUME 87 fL (80-99); MEAN PLATELET VOLUME 9.7 fL (9.0-12.2); PLATELET COUNT 285 10^3/uL (130-400)
[2022-05-02 22:50] LABS: BASOPHILS # (AUTO) 0.1 10^3/uL (0.0-0.1); BASOPHILS % (AUTO) 1 % (0-10); EOSINOPHILS # (AUTO) 0.4 10^3/uL (0.0-0.3); EOSINOPHILS % (AUTO) 3 % (0-10); LYMPHOCYTES # (AUTO) 0.4 X 10^3 (1.0-4.0); LYMPHOCYTES % (AUTO) 35 % (12-44); MONOCYTES # (AUTO) 0.5 X 10^3 (0.0-1.0); MONOCYTES % (AUTO) 5 % (0-12); NEUTROPHILS # (AUTO) 6.1 X 10^3 (1.8-7.8); NEUTROPHILS % (AUTO) 55 % (42-75)
[2022-05-02 22:53] LABS: ALBUMIN 4.3 GM/DL (3.2-4.5); BILIRUBIN,TOTAL 0.3 MG/DL (0.1-1.0); CALCIUM 9.3 MG/DL (8.5-10.1); CREATININE SERUM 1.03 MG/DL (0.60-1.30); POTASSIUM 3.8 MMOL/L (3.6-5.0); TOTAL PROTEIN 7.2 GM/DL (6.4-8.2)
--- NOTE | 2022-05-02 22:58 | ED Abdominal Pain ---
General Chief Complaint: Abdominal/GI Problems Stated Complaint: ABD PAIN,CP Nursing Triage Note: Pt complaining of right sided abdominal pain that radiates across her mid section. Pt states the pain started yesterday and has increased throughout the day today Source of Information: Patient Exam Limitations: No Limitations History of Present Illness Date Seen by Provider: May 02, 2022 Time Seen by Provider: 22:00 Initial Comments Patient is a 27-year-old female who presents with right-sided abdominal pain migrating across her upper abdomen. Symptoms began yesterday gradually increased throughout the day. No nausea vomiting fever chills or sweats. No flank pain, no urinary frequency urgency or dysuria. Patient reports constipation with last bowel movement prior to arrival. Timing/Duration: 1-2 Days Severity/Quality: Other Location: Other Radiation: Other Activities at Onset: Other Modifying Factors: Improves With Other Associated Symptoms: Other Allergies and Home Medications Allergies Coded Allergies: egg (Unverified Allergy, Severe, throat swelling, 11/28/18) amoxicillin (Verified Allergy, Unknown, 03/06/20) Penicillins (Unverified Adverse Reaction, Unknown, 11/19/19) Patient Home Medication List Home Medication List Reviewed: Yes Diclofenac Sodium (Diclofenac Sodium) 75 Mg Tablet.dr, 75 MG PO BID Prescribed by: Elder Suero on 03/04/22 1453 Doxycycline Hyclate (Doxycycline Hyclate) 100 Mg Tablet, 100 MG PO BID Prescribed by: ROBERT RUFF on 04/11/222217 Levothyroxine Sodium (Euthyrox) 100 Mcg Tablet, (Reported) Entered as Reported by: MISHEL TRUJILLO on 05/25/20 1842 Ondansetron (Ondansetron Odt) 4 Mg Tab.rapdis, 4-8 MG PO Q6H PRN for NAUSEA/VOMITING Prescribed by: ROBERT RUFF on 04/11/222217 Review of Systems Review of Systems Constitutional: see HPI EENTM: See HPI Respiratory: See HPI Cardiovascular: See HPI Gastrointestinal: See HPI Genitourinary: See HPI Musculoskeletal: see HPI Skin: see HPI Psychiatric/Neurological: See HPI Endocrine: See HPI Hematologic/Lymphatic: See HPI All Other Systems Reviewed Negative Unless Noted: No Past Bbknkik-Ktrhyc-Pbnqwy Hx Patient Social History Tobacco Use?: No Use of E-Cig and/or Vaping dev: No Substance use?: No Alcohol Use?: No Pt feels they are or have been: No Immunizations Up To Date Tetanus Booster (TDap): Unknown PED Vaccines UTD: Yes First/Initial COVID19 Vaccinat: unknown date Second COVID19 Vaccination Uriel: unknown date Third COVID19 Vaccination Date: pfizer Seasonal Allergies Seasonal Allergies: No Past Medical History Surgery/Hospitalization HX: shelley, eye, hypothryoid Surgeries: Yes Adenoidectomy, Eye Surgery, Gallbladder, Tonsillectomy Respiratory: No Cardiac: No Neurological: No Genitourinary: No Gastrointestinal: Yes Gastroesophageal Reflux Musculoskeletal: No Endocrine: Yes Hypothyroidsim HEENT: No Cancer: No Psychosocial: Yes Anxiety, Depression Integumentary: No Blood Disorders: No Physical Exam Vital Signs Vital Signs - First Documented 05/02/22 22:13 Temp 36.8 Pulse 72 Resp 18 B/P (MAP) 131/46 (74) Pulse Ox 98 O2 Delivery Room Air Capillary Refill : Less Than 3 Seconds Height/Weight/BMI Height: 5'1.00" Weight: 170lbs. oz. 77.029684io; 39.00 BMI Method:Stated General Appearance: WD/WN, no apparent distress HEENT: PERRL/EOMI Neck: supple Respiratory: chest non-tender, lungs clear Cardiovascular: regular rate, rhythm Gastrointestinal: normal bowel sounds, non tender, soft, distended; No guarding Extremities: normal range of motion Back: normal inspection Focused Exam Sepsis Stage: Ruled Out Progress/Results/Core Measures Results/Orders Lab Results Laboratory Tests Test 05/02/22 22:17 05/02/22 22:21 Range/Units Urine Color YELLOW Urine Clarity SL CLOUDY Urine pH 6.0 5-9 Urine Specific [place] >=1.030 1.016-1.022 Urine Protein NEGATIVE NEGATIVE Urine Glucose (UA) NEGATIVE NEGATIVE Urine Ketones NEGATIVE NEGATIVE Urine Nitrite NEGATIVE NEGATIVE Urine Bilirubin NEGATIVE NEGATIVE Urine Urobilinogen 0.2 < = 1.0 MG/DL Urine Leukocyte Esterase NEGATIVE NEGATIVE Urine RBC (Auto) NEGATIVE NEGATIVE Urine RBC NONE /HPF Urine WBC RARE /HPF Urine Squamous Epithelial Cells 2-5 /HPF Urine Crystals PRESENT H /LPF Urine Amorphous Sediment FEW SLIM PHOSPHATE H /LPF Urine Bacteria TRACE /HPF Urine Casts NONE /LPF Urine Mucus NEGATIVE /LPF Urine Culture Indicated NO White Blood Count 11.0 4.3-11.0 10^3/uL Red Blood Count 4.66 3.80-5.11 10^6/uL Hemoglobin 13.8 11.5-16.0 g/dL Hematocrit 40 35-52 % Mean Corpuscular Volume 87 80-99 fL Mean Corpuscular Hemoglobin 30 25-34 pg Mean Corpuscular Hemoglobin Concent 34 32-36 g/dL Red Cell Distribution Width 13.0 10.0-14.5 % Platelet Count 285 130-400 10^3/uL Mean Platelet Volume 9.7 9.0-12.2 fL Immature Granulocyte % (Auto) 0 % Neutrophils (%) (Auto) 55 42-75 % Lymphocytes (%) (Auto) 35 12-44 % Monocytes (%) (Auto) 5 0-12 % Eosinophils (%) (Auto) 3 0-10 % Basophils (%) (Auto) 1 0-10 % Neutrophils # (Auto) 6.1 1.8-7.8 X 10^3 Lymphocytes # (Auto) 0.4 L 1.0-4.0 X 10^3 Monocytes # (Auto) 0.5 0.0-1.0 X 10^3 Eosinophils # (Auto) 0.4 H 0.0-0.3 10^3/uL Basophils # (Auto) 0.1 0.0-0.1 10^3/uL Immature Granulocyte # (Auto) 0.0 0.0-0.1 10^3/uL Sodium Level 135 135-145 MMOL/L Potassium Level 3.8 3.6-5.0 MMOL/L Chloride Level 103 98-107 MMOL/L Carbon Dioxide Level 22 21-32 MMOL/L Anion Gap 10 5-14 MMOL/L Blood Urea Nitrogen 12 7-18 MG/DL Creatinine 1.03 0.60-1.30 MG/DL Estimat Glomerular Filtration Rate 77 BUN/Creatinine Ratio 12 Glucose Level 93 70-105 MG/DL Calcium Level 9.3 8.5-10.1 MG/DL Corrected Calcium 9.1 8.5-10.1 MG/DL Total Bilirubin 0.3 0.1-1.0 MG/DL Aspartate Amino Transf (AST/SGOT) 18 5-34 U/L Alanine Aminotransferase (ALT/SGPT) 16 0-55 U/L Alkaline Phosphatase 82 40-136 U/L Total Protein 7.2 6.4-8.2 GM/DL Albumin 4.3 3.2-4.5 GM/DL My Orders Orders - YUKI FUENTES DO Urine Bedside (05/02/22 22:23) Ed Iv/Invasive Line Start (05/02/22 22:31) Cbc With Automated Diff (05/02/22 22:31) Comprehensive Metabolic Panel (05/02/22 22:31) Ua Culture If Indicated (05/02/22 22:31) Abdomen (Kub) 1 View (05/02/22 22:32) Vital Signs/I&O 05/02/22 22:13 Temp 36.8 Pulse 72 Resp 18 B/P (MAP) 131/46 (74) Pulse Ox 98 O2 Delivery Room Air Blood Pressure Mean: 74 Departure Communication (Admissions) KUB: Paucity of gas in colon Migratory abdominal pain. Abdomen soft nonsurgical on repeat evaluation lab and imaging studies reviewed. Findings are nondiagnostic but consistent with obstipation. Recommendations are supportive care watchful waiting and PCP follow-up. Impression Primary Impression: Abdominal pain Additional Impression: Constipation Disposition: 01 HOME, SELF-CARE Condition: Stable Departure-Patient Inst. Decision time for Depature: 23:12 Referrals: BO MARTE MD (PCP/Family) Primary Care Physician Patient Instructions: Constipation in Adults, Abdominal Pain, Adult ED Add. Discharge Instructions: You were evaluated in the emergency department for abdominal pain. Lab and i maging studies were performed and are nondiagnostic. The exact cause of your symptoms has not been determined. Please take daily laxative newly prescribed medication as directed and follow-up with your PCP next 1 to 2 days for reevaluation. Return to the ED if new or worsening symptoms All discharge instructions reviewed with patient and/or family. Voiced understanding. YUKI FUENTES DO May 02, 2022 22:58
[2022-05-02] MEDS ORDERED: DICY20TA PO (23:15)
[2022-05-02 23:25] VITALS: BP 131/46
[2022-05-02] MEDS ORDERED: ACETAMINOPHEN 500 MG TAB (TYLENOL) PO ONE (23:30)
== END 2022-05-02 23:30 | disposition home or self-care (01) ==
LOC: EDUNIT# 22:10 → ER FS 22:11
DX: K59.00 Constipation, unspecified (principal); Z90.49 Acquired absence of other specified parts of digestive tract; Z28.310 Unvaccinated for COVID-19
CPT/HCPCS: 36415; 74018; 80053; 81000; 84703; 85025

== ENCOUNTER 2022-06-30 21:54 | Emergency (ER) | payer BC ==
[~2022-06-30] VITALS: Ht 154.9 cm; Wt 92.6 kg
[2022-06-30 22:01] VITALS: BP 148/73
--- NOTE | 2022-06-30 22:13 | ED Cough/URI ---
General Stated Complaint: NAUSEA/WEAKNESS/CHEST PAIN Source: patient Exam Limitations: no limitations History of Present Illness Date Seen by Provider: Jun 30, 2022 Time Seen by Provider: 21:55 Initial Comments 27-year-old female coming in straight from work due to 1 week of cough and chest discomfort, mostly with the cough. Symptoms have been constant, she is felt warm but has not taken her temperature and does not know if she has had a fever. Denies any vomiting, diarrhea, weakness, numbness, shortness of breath, or any other concerns. Has not taken any extra meds today. Allergies and Home Medications Allergies Coded Allergies: egg (Unverified Allergy, Severe, throat swelling, 11/28/18) amoxicillin (Verified Allergy, Unknown, 03/06/20) Penicillins (Unverified Adverse Reaction, Unknown, 11/19/19) Patient Home Medication List Home Medication List Reviewed: Yes Diclofenac Sodium (Diclofenac Sodium) 75 Mg Tablet.dr, 75 MG PO BID Prescribed by: Elder Suero on 03/04/22 1453 Dicyclomine HCl (Dicyclomine HCl) 20 Mg Tablet, 20 MG PO QID Prescribed by: YUKI FUENTES on 05/02/22 2315 Doxycycline Hyclate (Doxycycline Hyclate) 100 Mg Tablet, 100 MG PO BID Prescribed by: ROBERT RUFF on 04/11/222217 Levothyroxine Sodium (Euthyrox) 100 Mcg Tablet, (Reported) Entered as Reported by: MISHEL TRUJILLO on 05/25/20 1842 Ondansetron (Ondansetron Odt) 4 Mg Tab.rapdis, 4-8 MG PO Q6H PRN for NAUSEA/VOMITING Prescribed by: ROBERT RUFF on 04/11/22 2218 Review of Systems Review of Systems Constitutional: No fever EENTM: No blurred vision Respiratory: cough Cardiovascular: chest pain Gastrointestinal: no symptoms reported Genitourinary: no symptoms reported Musculoskeletal: no symptoms reported Skin: no symptoms reported Psychiatric/Neurological: No Symptoms Reported Hematologic/Lymphatic: No Symptoms Reported Immunological/Allergic: no symptoms reported All Other Systems Reviewed Negative Unless Noted: Yes Past Vlmpgkt-Fukozm-Hcyzhm Hx Patient Social History Substance use?: No Immunizations Up To Date Tetanus Booster (TDap): Unknown PED Vaccines UTD: Yes First/Initial COVID19 Vaccinat: unknown date Second COVID19 Vaccination Uriel: unknown date Third COVID19 Vaccination Date: Outright Seasonal Allergies Seasonal Allergies: No Past Medical History Surgery/Hospitalization HX: shelley, eye, hypothryoid Surgeries: Yes Adenoidectomy, Eye Surgery, Gallbladder, Tonsillectomy Respiratory: No Cardiac: No Neurological: No Genitourinary: No Gastrointestinal: Yes Gastroesophageal Reflux Musculoskeletal: No Endocrine: Yes Hypothyroidsim HEENT: No Cancer: No Psychosocial: Yes Anxiety, Depression Integumentary: No Blood Disorders: No Physical Exam Capillary Refill : Height: 5'1.00" Weight: 170lbs. oz. 77.902058yt; 39.00 BMI Method:Stated General Appearance: WD/WN, no apparent distress Eyes: Bilateral Eye Normal Inspection HEENT: PERRL/EOMI, normal ENT inspection, pharynx normal Neck: non-tender, full range of motion, supple, normal inspection Respiratory: chest non-tender, lungs clear, normal breath sounds, no respiratory distress, no accessory muscle use Cardiovascular: regular rate, rhythm, no edema, no murmur Gastrointestinal: normal bowel sounds, non tender, soft; No distended, No guarding, No rebound Extremities: normal range of motion, non-tender, normal inspection, no pedal edema, no calf tenderness, normal capillary refill Neurologic/Psychiatric: no motor/sensory deficits, alert, normal mood/affect Skin: normal color, warm/dry Progress/Results/Core Measures Suspected Sepsis SIRS Temperature: Pulse: Respiratory Rate: Blood Pressure / Mean: Results/Orders Lab Results Laboratory Tests Test 06/30/22 22:04 Range/Units My Orders Orders - ELIANA WEINER MD Chest 1 View Ap/Pa Only (06/30/22 22:05) Covid 19 Inhouse Test (06/30/22 22:05) Influenza A And B By Pcr (06/30/22 22:05) Vital Signs/I&O Capillary Refill : Progress Note : Progress Note 27-year-old female with above history coming in mostly due to cough and general malaise. ABCs were intact and vitals were stable on presentation. Physical exam reassuring with no focal abnormalities including clear lung sounds. Chest x-ray ordered due to the cough with chest discomfort. Symptoms have been ongoing for over a week which is unlikely to be ACS related. She is otherwise low risk for PE and is also PERC negative. Flu and COVID testing sent. Overall she is very well-appearing and otherwise healthy. Chest x-ray my interpretation with normal cardiac silhouette, pneumothorax, no pleural effusion, ribs appear normal, no infiltrate. I believe the patient is stable for discharge with outpatient follow-up. She was sent home with strict return precautions Diagnostic Imaging Diagonstic Imaging: Xray Plain Films/CT/US/NM/MRI: chest Comments X-ray chest ordered and interpreted by me showing normal cardiac silhouette, no infiltrate, no pneumothorax, no pleural effusion. Departure Impression Primary Impression: Cough Qualified Codes: R05.1 - Acute cough Additional Impression: Chest pain Qualified Codes: R07.82 - Intercostal pain Disposition: HOME, SELF-CARE Condition: Stable Departure-Patient Inst. Decision time for Depature: 22:20 Referrals: BO MARTE MD (PCP/Family) Primary Care Physician Patient Instructions: Cough in Adults Add. Discharge Instructions: We will call you with your flu and COVID results and leave a message. If your tests are negative you can go to work on Sunday. If its positive for COVID you need to take 5 days off of work. Take ibuprofen and/or Tylenol as needed for pain or fever Work/School Note: Work Release Form Date Seen in the Emergency Department: Jun 30, 2022 Return to Work: Jul 02, 2022 Restrictions: Return-No Fever (24hrs) ELIANA WEINER MD Jun 30, 2022 22:13
--- NOTE | 2022-07-01 07:28 | Diagnostic Imaging Report ---
EXAM: CHEST 1 VIEW, AP/PA ONLY. INDICATION: Chest pain. COMPARISON: 11/28/2018. FINDINGS: Normal heart size and central pulmonary vascularity. Lungs are clear. No pleural effusion or pneumothorax. No acute osseous findings. IMPRESSION: No acute cardiopulmonary findings. Dictated by: Dictated on workstation # [id number]
== END 2022-06-30 22:18 | disposition home or self-care (01) ==
LOC: EDUNIT# 21:54 → ER FS 21:58
DX: R05.1 Acute cough (principal); R07.89 Other chest pain; Z20.822 Contact with and (suspected) exposure to COVID-19
CPT/HCPCS: 71045; 87636

== ENCOUNTER 2022-11-24 14:07 | Outpatient (RCR) | payer BC | END 2022-12-08 09:20 | disposition home or self-care (01) | PROVIDERS: ATTEND Family Medicine | DX: M25.512 Pain in left shoulder (principal); M79.605 Pain in left leg ==

== ENCOUNTER → 2022-12-12 | Outpatient (CLI) | payer BC ==
--- NOTE | 2022-12-12 17:20 | Diagnostic Imaging Report ---
Indication: Left ankle pain. Time of Exam: 2:24 PM 3 views of the left ankle were obtained. Alignment is normal. Ankle mortise is well-maintained. Talar dome is smooth. No fracture or dislocation is identified. Impression: No acute bony abnormality is detected. Dictated by: Dictated on workstation # [id number]
== END ==
LOC: RAD FS 14:11
PROVIDERS: ATTEND Family Medicine
DX: Z01.419 Encounter for gynecological examination (general) (routine) without abnormal findings (principal); M25.572 Pain in left ankle and joints of left foot
CPT/HCPCS: 73610